=== PATIENT | male | born 1940 | race Caucasian/White ===

== ENCOUNTER → 2018-04-06 08:56 | Outpatient (CLI) | payer MEDICARE, OTHER, SELFPAY ==
[2018-03-31 15:32] VITALS: BMI 23.4
[2018-04-06 09:56] LABS: CREATININE FINGERSTICK 0.8 mg/dL (0.70-1.30); EGFR FINGERSTICK > 60.0000 mL/min (>60)
--- NOTE | 2018-04-06 09:56 | PET_ITS ---
EXAMINATION: FDG PET/CT INDICATIONS: A 77-year-old male with history of carcinoma of the lung presenting for restaging examination. COMPARISON EXAMINATION: None available INDEX LESION SIZE SUV INTERPRETATION Precarinal mediastinum 29.6 x 36.7-mm (frame 236) 7.7 Fulfills quantitative criteria for viable neoplasm Bilateral thoracic perihilum 18.9-mm (largest) (frame 207) 3.2 (max) Fulfills borderline quantitative criteria for viable neoplasm NON-INDEX LESION SIZE SUV INTERPRETATION Left adrenal gland 1.4 Quantitative criteria for viable neoplasm are not fulfilled Right upper hemithorax pulmonary parenchyma, linear 0.9 Quantitative criteria for viable neoplasm are not fulfilled TECHNIQUE: Following the intravenous administration of 13.93 mCi of F-18 deoxyglucose via the right antecubital fossa, multiplanar image acquisitions of the neck, chest, abdomen and pelvis to level of mid thigh, obtained at one hour post radiopharmaceutical administration contemporaneously interpreted with the current CT of the neck, chest, abdomen and pelvis to level of mid thigh, dated 04/06/18 via coregistration reveal: SERUM GLUCOSE LEVEL: 110 mg/dl. HEIGHT: 72 inches. WEIGHT: 175 lbs. FINDINGS: 1. Increased glucose metabolism is currently defined in the precarinal mediastinum generating a corrected maximum calculated standard uptake value of 7.7. The maximal axial diameter of the corresponding hypermetabolic soft tissue density on review of CT of the thorax dated 04/06/18 is 29.6-mm (transverse) x 36.7-mm (AP). 2. Enhanced radiopharmaceutical concentration is observed in the bilateral thoracic perihilum generating a corrected maximum calculated standard uptake value of 3.2. The maximal axial diameter of the metabolic abnormality is 18.9-mm (AP). 3. Mild FDG uptake is observed in the left adrenal gland. The corrected maximum calculated standard uptake value is noted to be 1.4. Quantitative criteria for viable neoplasm are not fulfilled. 4. Normal physiologic distribution of the radiopharmaceutical is apparent in the hepatic (3.0) and splenic parenchyma, both renal units, bladder and visualized intestinal tract. Diffuse radiopharmaceutical concentration is noted in all four quadrants of the abdomen and pelvis. The visualized portion of the cerebral cortex demonstrate symmetric and preserved glucose metabolism. Prominent glucose metabolism is defined in the descending thoracic, as well as abdominal aorta. Symmetric glucose concentration is noted in the distribution of the laryngeal structures to include the true-false vocal cords extending posteriorly to the cricopharyngeus musculature, cricoids cartilage consistent with physiologic distribution of radiopharmaceutical. A linear increase in glucose concentration oriented in the horizontal plane is noted in the right upper hemithorax pulmonary parenchyma generating a corrected maximum calculated standard uptake value of 0.9. Pertinent CT findings are as follows: CHEST: There is evidence of previous median sternotomy. Ventricular pacemaker placement is defined. There is atherosclerotic calcification defined in the thoracic aorta without evidence of dilatation-aneurysm formation. Coronary arterial calcification is observed. Calcified mediastinal and right thoracic perihilar soft tissue demonstrates no evidence of increased glucose metabolism. There are no parenchymal densities-nodules defined in the right-left hemithorax manifesting quantitatively significant increased glucose concentration. Emphysematous changes are noted in the bilateral upper lung zones. A subcentimeter density noted in the right basilar hemithorax pulmonary parenchyma is non-glucose avid. ABDOMEN AND PELVIS: Cholelithiasis is demonstrated. There is atherosclerotic calcification defined in the abdominal aorta without evidence of dilatation-aneurysm formation. Intravenous contrast is noted in the bilateral ureter and urinary bladder. This is distribution of presumably oral contrast material within the intestinal tract. SKELETAL: Degenerative changes are noted in the cervical, thoracic and lumbar spine. PET/PET/CT Tumor Base -Thigh Subs IMPRESSION: 1. ABNORMAL EXAMINATION INDICATIVE OF MALIGNANT VIABLE NEOPLASM. 2. Increased radiotracer concentration noted in the precarinal mediastinum fulfills quantitative criteria for viable neoplasm. The bilateral thoracic perihilar increase in glucose concentration fulfills borderline quantitative criteria for malignant transformation. (Saeid et al, Journal of Clinical Oncology 16:2142, 1998). 3. Facilitated glucose metabolism manifest in the left adrenal gland does not fulfill quantitative criteria for viable neoplasm. (Abiel and Sherry, Journal of Nuclear Medicine 42:151 P2002 [place], Journal of Nuclear Medicine 45:1340, 2004). 4. The linear increase in glucose concentration noted in the right upper hemithorax pulmonary parenchyma, right upper lobe, does not fulfill quantitative criteria for viable neoplasm. 5. Prominent fluorine labeled glucose uptake observed in the descending thoracic, as well as abdominal aorta is commensurate with activated leukocytes associated with atherosclerotic plaque formation. (Tom, Clinical Nuclear Medicine 29:93, 2004). Electronic Signature Yosef Bond D.O. Electronically Signed: Yosef Bond DO at 23:16 EDT Tel , Service support ,
== END ==
PROVIDERS: Visit Provider Student in an Organized Health Care Education/Training Program
DX: C34.11 Malignant neoplasm of upper lobe, right bronchus or lung (principal)
CPT/HCPCS: 77290; 78815; A9552; Q9967

== ENCOUNTER 2018-04-09 10:44 | Day surgery (SDC) | payer MEDICARE, OTHER, SELFPAY ==
[2018-03-31 15:32] VITALS: BMI 23.4
[2018-04-09] VITALS (9 sets, daily range): BP systolic 78–142; BP diastolic 55–80; PULSE 66–78; RESP 16–18; TEMP 36.3–36.8; O2SAT 92–99; BMI 22.8
[2018-04-09] MEDS: Cefazolin 2 GM in 0.9% Normal Saline 100 ML IV (13:24)
[2018-04-09] MEDS: Bupiv/Epi 0.5% Mpf 30 ML Vial (13:50)
--- NOTE | 2018-04-09 14:15 | RAD_ITS ---
STUDY: X-RAY CHEST REASON FOR EXAM: Male, 77 years old. Post line placement TECHNIQUE: Single AP portable view of the chest. COMPARISON: PET scan 04/06/2018. FINDINGS: There is a left Mediport catheter that terminates in the mid SVC. No pneumothorax. There is hyperexpansion of the lungs. There is linear scarring or platelike atelectasis across the right upper lobe. No infiltrates or effusions. Sternal cerclage wires and vascular clips are present from a prior sternotomy and coronary artery bypass graft procedure (CABG). Normal heart size. Pacemaker is seen with leads terminating in the right atrium, coronary sinus, and right ventricle. Normal mediastinum and nazia. Normal visualized pulmonary arteries. Normal visualized aortic arch and descending thoracic aorta. Normal visualized thoracic spine. Normal visualized ribs, clavicles, and shoulders. There is no demonstrated abnormality of the visualized soft tissue structures of the upper abdomen. RAD/CXR for Line Placement IMPRESSION: Left Mediport catheter terminates in the mid SVC. COPD. Linear density across the right upper lobe most likely scarring or subsegmental atelectasis. No definite acute chest disease. Electronically Signed: Petros Alarcon MD at 15:00 EDT , Service support ,
--- NOTE | 2018-04-09 14:35 | DCINST_ITS ---
Discharge Diet: No Restrictions - Pain medication may cause nausea. You should typically eat light foods as you take your pain medication. Discharge Activity: Return to Normal Activity, May Shower - with your bandage in place in 1-2 days after surgery. DO NOT SHOWER WHEN YOUR PORT IS ACCESSED. Call your doctor if your incision/area has: Continuous Slow Oozing, Sudden Increased Bleeding, Increased Pain/ Swelling, Increased Redness Call your doctor if you observe: Fever of 101 or Higher Remove Dressing in (days):: 3 - When you remove the bandage, leave the steri- strips intact until they fall off. Allergies/Adverse Reactions: Allergies levofloxacin [From Levaquin] Allergy (Verified 04/07/18 08:41) Unknown Medications to take at Discharge Acetaminophen [Pain Relief] 325 mg PO Q4H PRN 03/19/18 Albuterol IH (ProAir) [Proair Hfa] 1 puff INHALATION Q4H PRN 03/19/18 Aspirin [Aspirin, Baby] 81 mg PO DAILY@0800 03/19/18 Carvedilol 12.5 mg PO BID 03/19/18 Hydrochlorothiazide [Hctz] 12.5 mg PO DAILY 03/19/18 Lisinopril [Zestril] 5 mg PO QHS 03/19/18 Omeprazole [Prilosec] 20 mg PO DAILY 03/19/18 Pravastatin [Pravachol] 40 mg PO DAILY 03/19/18 Psyllium [Metamucil] 1 packet PO PRN PRN 03/19/18 Tiotropium [place] [Spiriva 18 MCG] 1 puff INHALATION DAILY 03/19/18 Cholecalciferol (Vitamin D3) 1,000 iu PO DAILY 03/30/18 Lidocaine/Prilocaine [Lidocaine-Prilocaine Cream] 30 gm TP DAILY PRN PRN #1 cream..g. 04/02/18 Primary Care Physician: Aleksandr Hernandez [Primary Care Provider] - Test Results: Please Follow Up With: Emil Perry MD When: Please call to schedule 2 week follow up appointment. [phone]
--- NOTE | 2018-04-09 14:36 | OP.PCM_ITS ---
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 Ultrasound was used to evaluate both IJ is in the right IJ was selected. Next, using a needle, the right IJ was accessed and a guidewire was passed on into the superior vena cava under fluoroscopy guidance. A small incision was made over the puncture site and the dilator introducer was placed over the guidewire. Next this was capped and the pocket was made for the port. 1% lidocaine with epinephrine was injected in the proposed port site. An incision was made with scalpel. Electrocautery was used to make a pocket under the skin and subcutaneous tissue. Hemostasis was obtained. Next, the catheter was tunneled up to the neck incision site and placed through the introducer. The peel-away introducer was removed and the position of the catheter was confirmed on fluoroscopy. Next, the catheter was trimmed and attached to the port with the locking device. Interrupted 2-0 PDS were used to anchor the port to the chest wall and then the port was placed inside the pocket. The pocket was then flushed with saline and the port irrigated with saline. There was good blood return and the port flushed easily. Next, heparin was injected into the port. The skin was closed with subcutaneous interrupted 3-0 Vicryl sutures and interrupted skin 3-0 nylon sutures. A single 3-0 Vicryl sutures placed under the skin at the neck incision site. Steri-Strips were placed as well as op sites. Patient tolerated procedure well, was taken to PACU in stable condition. Chest x-ray will be obtained. Grafts/Implants Used: 8 [place] [employer] - Admit VTE Documentation VTE Mechan Device Prophylaxis: SCD's
== END 2018-04-09 15:22 | disposition home or self-care (01) ==
LOC: SDC 10:45 → AC 10:46
PROVIDERS: Visit Provider Surgery
PROC: (CPT 36571; principal; 2018-04-09 12:45)
DX: C34.11 Malignant neoplasm of upper lobe, right bronchus or lung (principal); C77.1 Secondary and unspecified malignant neoplasm of intrathoracic lymph nodes; I11.0 Hypertensive heart disease with heart failure; I50.9 Heart failure, unspecified; I25.10 Atherosclerotic heart disease of native coronary artery without angina pectoris; N40.0 Benign prostatic hyperplasia without lower urinary tract symptoms; J44.9 Chronic obstructive pulmonary disease, unspecified; K21.9 Gastro-esophageal reflux disease without esophagitis; I25.2 Old myocardial infarction; E78.5 Hyperlipidemia, unspecified; D69.3 Immune thrombocytopenic purpura; M19.90 Unspecified osteoarthritis, unspecified site; C61 Malignant neoplasm of prostate; Z95.1 Presence of aortocoronary bypass graft; Z95.810 Presence of automatic (implantable) cardiac defibrillator; Z87.891 Personal history of nicotine dependence; Z45.2 Encounter for adjustment and management of vascular access device; Z79.51 Long term (current) use of inhaled steroids; Z79.82 Long term (current) use of aspirin; Z79.899 Other long term (current) drug therapy
CPT/HCPCS: 36571; 71045; 77001; J7120; C1788

== ENCOUNTER → 2018-06-29 10:33 | Outpatient (CLI) | payer MEDICARE, OTHER, SELFPAY ==
[2018-03-31 15:32] VITALS: BMI 23.4
--- NOTE | 2018-06-29 10:35 | RAD_ITS ---
STUDY: X-RAY CHEST REASON FOR EXAM: Male, 78 years old. 3 month history of cough. Recurring lung cancer. TECHNIQUE: PA and lateral views of the chest. COMPARISON: Comparison is made with prior study dated April 09, 2018. FINDINGS: A right-sided portacatheter is seen. The tip is at the junction of the superior vena cava and right atrium. Hyperinflation. Increased linear markings in the right upper lobe. This most likely represents scarring. This has improved as compared to prior study. There is elevation of the right hemidiaphragm. Sternal cerclage wires and vascular clips are present from a prior sternotomy and coronary artery bypass graft procedure (CABG). A left-sided dual-chamber pacemaker is seen. There are calcified hilar lymph nodes. Normal visualized pulmonary arteries. Normal visualized aortic arch and descending thoracic aorta. There is demineralization of the osseous structures. Normal visualized ribs, clavicles, and shoulders. There is no demonstrated abnormality of the visualized soft tissue structures of the upper abdomen. RAD/Chest PA and Lateral IMPRESSION: Hyperinflation. Increased markings in the right upper lobe suggestive of scarring. This has improved as compared to prior study. Electronically Signed: Dangelo Blevins MD at 11:09 EDT Tel [phone], Service support ,
== END ==
PROVIDERS: Visit Provider Internal Medicine Hematology & Oncology
DX: J44.9 Chronic obstructive pulmonary disease, unspecified (principal)
CPT/HCPCS: 71046

== ENCOUNTER → 2018-09-07 13:22 | Outpatient (CLI) | payer MEDICARE, OTHER, SELFPAY ==
[2018-03-31 15:32] VITALS: BMI 23.4
[2018-08-24 10:29] VITALS: BMI 21.9
--- NOTE | 2018-09-07 13:26 | CT_ITS ---
STUDY: CT CHEST WITH CONTRAST REASON FOR EXAM: Male, 78 years old. Lung cancer restaging. Chronic cough. RADIATION DOSAGE (If Supplied By Facility): CTDIvol = ( 13.66 ) mGy, DLP = ( 799.81 ) mGycm TECHNIQUE: Transaxial imaging was performed following intravenous administration of 100mL ml of Isovue 300 contrast material. Individualized dose optimization techniques were used for this CT. COMPARISON: None. Previous PET scan from April of this year was not provided for comparison. FINDINGS: There is hyperexpansion of the lungs, and evidence for severe diffuse fibrotic COPD. A small focal area of probable fibrosis is seen along the posterior aspect of the right apex, 1.3 cm size, axial image 31 and coronal image 194. Discoid scarring is seen across the lateral aspect of the right apex. Moderately extensive probable fibrotic changes seen throughout the right perihilar region. No definite associated mass, but active neoplasm is definitely not excluded. Platelike density across the lower posterior left lower lobe is most likely scarring. No definite acute infiltrates. No effusions. Evaluation of mediastinum shows the soft tissue mass approximately 3 cm greatest dimension along the left side of the upper esophagus, axial image 33 and coronal image 134, which could be neoplastic. Cannot exclude neoplasm versus fibrotic changes around the right hilum. Sternal cerclage wires and vascular clips are present from a prior sternotomy and coronary artery bypass graft procedure (CABG). Pacemaker is seen with leads terminating in the right atrium and right ventricle. Normal enhanced pulmonary arteries. Normal aorta arch and descending thoracic aorta. There are multi-level degenerative changes of the thoracic spine. There is no demonstrated abnormality of the visualized upper abdomen. CT/Chest WITH Contrast IMPRESSION: Severe fibrotic COPD. Probable areas of bilateral pulmonary scarring. Cannot exclude active neoplasm especially around the right hilum. Probable adenopathy in the left upper mediastinum. Note that no prior studies were provided for comparison, which significantly degrades cancer follow-up. Electronically Signed: Petros Alarcon MD at 17:15 EST , Service support ,
--- NOTE | 2018-09-07 13:26 | CT_ITS ---
STUDY: CT ABDOMEN WITH CONTRAST REASON FOR EXAM: Male, 78 years old. Lung cancer restaging. Cough. RADIATION DOSAGE (If Supplied By Facility): CTDIvol = ( 13.66 ) mGy, DLP = ( 788.81 ) mGycm TECHNIQUE: Transaxial images were obtained post I.V. administration of 100mL ml of Isovue 300 contrast, and without oral contrast. Sagittal and coronal images were reconstructed. Individualized dose optimization techniques were used for this CT. COMPARISON: None. FINDINGS: See separate report for CT of the chest. Normal liver. There are multiple gallstones. Normal spleen. Normal pancreas. Normal bilateral adrenal glands. There are no acute abnormalities of the kidneys. There is a 4 mm nonobstructing stone of the upper pole of the right kidney. There is a 2 mm nonobstructing stone in the lower pole of the left kidney. There are bilateral small cortical and parapelvic cysts. Normal visualized stomach. Normal small intestine. Moderate fecal retention in the visualized colon. There is diffuse atherosclerotic calcification of the abdominal aorta, without a demonstrated aneurysm. Normal inferior vena cava. Normal retroperitoneum. Normal abdominal wall. There are diffuse degenerative changes of the visualized lumbar spine. CT/Abdomen WITH IV Contrast IMPRESSION: No definite acute abnormalities are seen. Bilateral nonobstructing renal stones. Fecal retention in the colon. Electronically Signed: Petros Alarcon MD at 22:31 EST , Service support ,
== END ==
PROVIDERS: Referring Provider Internal Medicine Hematology & Oncology; Visit Provider Internal Medicine Hematology & Oncology
DX: C34.11 Malignant neoplasm of upper lobe, right bronchus or lung (principal)
CPT/HCPCS: 71260; 74160; Q9967

== ENCOUNTER → 2019-04-12 | Outpatient (CLI) | payer MEDICARE, OTHER, SELFPAY ==
[2018-03-31 15:32] VITALS: BMI 23.4
[2018-12-10 13:36] VITALS: BMI 24.5
--- NOTE | 2019-04-12 13:19 | CT_ITS ---
STUDY: CT CHEST WITH CONTRAST REASON FOR EXAM: Male, 78 years old. Lung cancer follow-up RADIATION DOSAGE (If Supplied By Facility): CTDIvol = ( 18.86 ) mGy, DLP = ( 2754.01 ) mGycm TECHNIQUE: Transaxial imaging was performed following intravenous administration of 100mL IV Isovue 300. Multiplanar coronal and sagittal images were reformatted. Individualized dose optimization techniques were used for this CT. COMPARISON: CT chest December 07, 2018 from a PET scan FINDINGS: There is a pattern of hyperinflation of the lungs increased AP diameter and emphysematous change throughout. Within the left lung base there is new focal consolidation image #109. There is focal peripheral patchy nodular density at the distal ends of the adjacent bronchi suggesting possible mucous plugging and inflammatory change. There is persistent scar like density or thickening in the right apex. There is persistent persistent focal scarlike density within the mid aspect of the right lung. There is no demonstrated pleural abnormality. There are coronary calcifications. The heart is borderline enlarged. Sternotomy wires are seen midline. There are multiple calcified lymph nodes in the right-sided mediastinum.. There is mild thickening of the right hilum similar to prior study. Normal enhanced pulmonary arteries. Aorta is partially calcified mildly tortuous. There are multi-level degenerative changes of the thoracic spine. Sternotomy wires are seen midline. The visualized multiple gallstones. There is a minimal hiatal hernia. CT/Chest WITH Contrast IMPRESSION: Left interval development of left lower lobe consolidation and patchy nodular densities that is suspicious for pneumonia. Could consider possible aspiration. The differential in this setting could consider neoplasm however given the appearance infection is thought to be more likely. Pulmonary edema chronic obstructive pulmonary disease stable scarring right midlung zone and right apex. Status post sternotomy. Pacemaker. Coronary artery disease. Cholelithiasis. The remainder of the CT scan of the abdomen and pelvis were discussed in the dedicated study performed the same day. N.B. : The above information has been verbally conveyed by Rosy Byrne MD to Dr. Mono MD, on 04/12/2019 16:05:30 (ET). Electronically Signed: Rosy Byrne MD at 15:59 EDT Tel , Service support ,
--- NOTE | 2019-04-12 13:20 | CT_ITS ---
STUDY: CT ABDOMEN AND PELVIS WITH CONTRAST REASON FOR EXAM: Male, 78 years old. Follow-up lung cancer RADIATION DOSAGE (If Supplied By Facility): CTDIvol = ( 18.86 ) mGy, DLP = ( 2754.01 ) mGycm TECHNIQUE: Transaxial images were obtained from the dome of the diaphragm to the symphysis pubis without oral contrast. 100mL IV Isovue 300 was administered. Sagittal and coronal images were reconstructed. Individualized dose optimization techniques were used for this CT. COMPARISON: PET scan CT December 07, 2018, September 07, 2018 CT scan FINDINGS: There is a focus of consolidation in the left lung base new since December 07, 2018 recurrent since September 07, 2018 that is been described in the CT scan performed the same day. Coronary calcifications pacemaker demonstrated. Normal liver. There are multiple small gallstones. There is mild splenomegaly. Normal pancreas. Normal bilateral adrenal glands. The minimal stable right side renal cyst measuring 7 mm exophytic location there is a punctate calcification is no evidence for hydronephrosis. There is a stable right renal cyst measuring 6.2 mm. There is a stable punctate stone left kidney without hydronephrosis. Normal visualized stomach. Normal small intestine. There is mild to moderate stool in the colon. The appendix is visualized and appears normal. The aorta is partially calcified. There is dense calcification at the takeoff of the bilateral common iliac arteries which may be hemodynamically significant especially on the right side. There is dense calcification of the takeoff of the bilateral external and internal iliac arteries. This is stable when compared to prior study September 07, 2018. Normal inferior vena cava. Normal retroperitoneum. The bladder is decompressed the wall is subsequently thickened. Normal visualized prostate gland. Normal abdominal wall. There are diffuse degenerative changes of the visualized lumbar spine. There is degenerative change in the lumbar spine. There is a broad disc bulge L4-L5 with mild to moderate neural foramina narrowing mild central stenosis facet arthropathy. At L5-S1 there is a broad disc osteophyte with mild to moderate neural foraminal narrowing or significant central stenosis. There is a stable 5 mm sclerotic density in the right ilium which may represent bone island there is a 2 mm density in the left ilium stable since prior study. This also may represent a bone island. CT/Abdomen/Pelvis W IV Cont ONLY IMPRESSION: No evidence of hepatic splenic adrenal or retrograde peritoneal lymphadenopathy. [id number] constipation Cholelithiasis. Stable kidneys. Advanced atherosclerotic disease of the aorta especially the common iliac arteries. Degenerative changes of the thoracolumbar spine no definitive evidence of new sclerotic lesions. No evidence of lytic lesions. There is a left lower lobe consolidation which is new since the recent prior study December 07, 2018 suggestive of probable pneumonia likely related to bronchiectasis. This is not seen on the more recent prior study December 07, 2018 but recurrent when compared to September 07, 2018. Electronically Signed: Rosy Byrne MD at 16:13 EDT Tel , Service support ,
[2019-04-12 14:32] LABS: Creatinine, Serum 1.18 mg/dL (0.70-1.30); EST Glomerular Filtration Rate 63 mL/min (>60); Est Glom Filt Rate - Afr Amer 76 mL/min (>60)
== END | disposition home or self-care (01) ==
LOC: CT 13:16
PROVIDERS: Referring Provider Internal Medicine Hematology & Oncology; Visit Provider Internal Medicine Hematology & Oncology
DX: C34.11 Malignant neoplasm of upper lobe, right bronchus or lung (principal)
CPT/HCPCS: 71260; 74177; 82565; Q9967

== ENCOUNTER → 2019-07-15 12:49 | Outpatient (CLI) | payer MEDICARE, OTHER, SELFPAY ==
[2018-03-31 15:32] VITALS: BMI 23.4
[2019-04-19 13:11] VITALS: BMI 25.6
--- NOTE | 2019-07-15 12:50 | CT_ITS ---
STUDY: CT ABDOMEN WITH CONTRAST REASON FOR EXAM: Male, 79 years old. Lung cancer RADIATION DOSAGE (If Supplied By Facility): CTDIvol = ( 17.05 ) mGy, DLP = ( 1127.34 ) mGycm TECHNIQUE: Transaxial images were obtained post I.V. administration of IV Isovue 300 100, and oral contrast. Sagittal and coronal images were reconstructed. Individualized dose optimization techniques were used for this CT. COMPARISON: None. FINDINGS: Emphysematous change at the lung bases. Spiculated nodule at the posterior lateral left lung base measuring 1.8 cm. Nodular airspace infiltration at the posterior left lung base. Heart is normal in size. Pacer wires are in place. Pericardium is normal. Normal liver. Calcified stones are seen in the nondistended, nonthickened gallbladder. No biliary duct dilatation. Normal spleen. Normal pancreas. Normal bilateral adrenal glands. Small hypoattenuated lesions within both kidneys measuring near water density. 3 mm calculus in the mid right renal pelvis. No hydronephrosis. Normal visualized ureters. Normal visualized stomach. Normal visualized small bowel loops.. Normal visualized colonic segments. Mild atheromatous and atherosclerotic plaque within the visualized abdominal aorta. Normal inferior vena cava. Normal retroperitoneum. Normal abdominal wall. Normal osseous structures. CT/Abdomen WITH IV Contrast IMPRESSION: 1. No acute intra-abdominal abnormality. 2. Cholelithiasis with no evidence of acute cholecystitis. 3. Simple appearing bilateral renal cysts. 4. Emphysematous change at the lung bases with 1.8 cm spiculated nodule at the left posterolateral lung base and nodular airspace infiltrates at the left posterior lung base. Electronically Signed: Raul Figueroa MD at 2:16 EDT Tel , Service support ,
--- NOTE | 2019-07-15 12:50 | CT_ITS ---
STUDY: CT chest and abdomen with contrast REASON FOR EXAM: Male, 79 years old. Lung cancer RADIATION DOSAGE (If Supplied By Facility): DLP = ( 1127.34 ) mGycm TECHNIQUE: Transaxial imaging was performed following intravenous administration of 100 ml of 100mL Isovue-300 contrast material. Coronal and sagittal reformatted images were created. Individualized dose optimization techniques were used for this CT. COMPARISON: CT chest abdomen and pelvis April 12, 2019 FINDINGS: Severe emphysema is again seen with areas of scarring. Again seen are left lower lobe infiltrates, slightly increased with tree-in-bud nodular opacities present. Stable bilateral bronchial wall thickening is present. The heart and pericardium are within normal limits. Coronary artery calcifications are present. There is no thoracic lymphadenopathy. There is no evidence of thoracic aortic aneurysm. The liver is normal in appearance. The gallbladder contains gallstones. The pancreas, spleen, and adrenal glands are normal in appearance. There is a right renal upper pole nonobstructing 3 mm stone. There is a left renal lower pole nonobstructing 1 mm stone. No hydronephrosis is present. The visualized bowel is normal in appearance. There is no free fluid or free air present. There is a lymphadenopathy. No aggressive appearing osseous lesions are present. CT/Chest WITH Contrast IMPRESSION: Severe emphysema with areas of scarring. Redemonstrated left lower lung zone infiltrates with tree-in-bud nodular opacities. Likely infectious with neoplasm possible but less likely. Stable bilateral bronchial wall thickening. Gallstones. Bilateral nonobstructing renal stones. Electronically Signed: Jose Belle, at 16:47 EDT Tel , Service support ,
[2019-07-15 13:46] LABS: CREATININE FINGERSTICK 1.2 mg/dL (0.70-1.30)
== END ==
PROVIDERS: Referring Provider Internal Medicine Hematology & Oncology; Visit Provider Internal Medicine Hematology & Oncology
DX: C34.90 Malignant neoplasm of unspecified part of unspecified bronchus or lung (principal)
CPT/HCPCS: 71260; 74160; Q9967

== ENCOUNTER → 2019-09-22 12:06 | Outpatient (CLI) | payer MEDICARE, OTHER, SELFPAY ==
[2018-03-31 15:32] VITALS: BMI 23.4
[2019-09-13 11:54] VITALS: BMI 25.6
[2019-09-22 12:50] VITALS: PULSE 84; PULSE 88; PULSE 89; PULSE 90; PULSE 91; PULSE 92; O2SAT 88; O2SAT 90; O2SAT 91; O2SAT 92; O2SAT 96; O2SAT 97; O2SAT 98
--- NOTE | 2019-09-22 12:53 | CPS ---
Patient came in on 4 lpm pulse dose, states that he wears 2-4 lpm at home. Patient states that he does not walk a lot and that he does have a pulse ox at home and uses it. Started walk on room air since SpO2 was 92-93%, 10+ minutes off of O2. By a 1 minute 18 seconds in patient dropped to 88% and stated he was short of breath. Placed patient on his own conserving device at 3 lpm pulse dose, recovered to 96%. Patient stopped walking by the 3rd minute and stated he was extrememly short of breath. Patient sat until the 5th minute but then walked another 60 feet in the last minute.
--- NOTE | 2019-09-23 07:55 | PCM.PSN.6M ---
PSN 6 Minute Walk Test - 6 Minute Walk Test 6 Minute Walk Test: 6 Minute Walk Test PSN:6-Minute Walk Test Start: 09/22/19 12:50 Freq: Status: Active Protocol: RESP.6MINW Document 09/22/19 12:50 SMITACHANELNAOMI (Rec: 09/22/19 12:56 KARYNON [id number]) 6 Minute Walk Test Date Performed 09/22/19 Time Performed 12:30 Height 6 ft Weight: 185 lb Weight in Pounds 185.[address]: Darius Tate Assistive device used: None Pre-test Oxygen Delivery Method Room Air Pulse Ox (%) 92 Pulse Rate (60-100 beats/min) 84 Dyspnea Daisy Scale (0-10) 0 Exertion Daisy Scale (6-20) 6 1st minute Oxygen Delivery Method Room Air Pulse Ox (%) 88 Pulse Rate (60-100 beats/min) 89 Reported Symptoms Increased Work of Breathing 2nd minute Oxygen Flow Rate (L/min) (L/min) 3 Oxygen Delivery Method Nasal Cannula Pulse Ox (%) 90 Pulse Rate (60-100 beats/min) 92 Reported Symptoms Increased Work of Breathing 3rd minute Oxygen Flow Rate (L/min) (L/min) 3 Oxygen Delivery Method Nasal Cannula Pulse Ox (%) 92 Pulse Rate (60-100 beats/min) 92 Number of Rests Taken 1 4th minute Oxygen Flow Rate (L/min) (L/min) 3 Oxygen Delivery Method Nasal Cannula Pulse Ox (%) 96 Pulse Rate (60-100 beats/min) 92 Number of Rests Taken 1 Reported Symptoms Increased Work of Breathing 5th minute Oxygen Flow Rate (L/min) (L/min) 3 Oxygen Delivery Method Nasal Cannula Pulse Ox (%) 98 Pulse Rate (60-100 beats/min) 91 Number of Rests Taken 1 Reported Symptoms Increased Work of Breathing 6th minute Oxygen Flow Rate (L/min) (L/min) 3 Oxygen Delivery Method Nasal Cannula Pulse Ox (%) 91 Pulse Rate (60-100 beats/min) 90 Reported Symptoms Increased Work of Breathing Post-test Oxygen Flow Rate (L/min) (L/min) 3 Oxygen Delivery Method Nasal Cannula Pulse Ox (%) 97 Pulse Rate (60-100 beats/min) 88 Full Laps Walked 5 Partial Lap, Number of Tiles Walked 0 Total Distance Walked (ft) 295 09/22/19 12:53 Cardiopulmonary Services by Margie Matias Patient came in on 4 lpm pulse dose, states that he wears 2-4 lpm at home. Patient states that he does not walk a lot and that he does have a pulse ox at home and uses it. Started walk on room air since SpO2 was 92-93%, 10+ minutes off of O2. By a 1 minute 18 seconds in patient dropped to 88% and stated he was short of breath. Placed patient on his own conserving device at 3 lpm pulse dose, recovered to 96%. Patient stopped walking by the 3rd minute and stated he was extrememly short of breath. Patient sat until the 5th minute but then walked another 60 feet in the last minute. Initialized on 09/22/19 12:53 - END OF NOTE - Interpretation Interpretation: The patient ambulated 295 feet over the course of 6 minutes beginning on room air with breaks taken during testing. Pretesting oxygen saturation was noted to be 92% on room air. With ambulation, the macrina oxygen saturation was 88% at minute 1 of testing. 3 L/min of pulse dose supplemental oxygen was applied and the patient was able to complete the remainder of the test while maintaining appropriate oxygen saturations. However, the patient sat for approximately 2 minutes during testing which may limit the sensitivity for detecting further oxygen desaturations. - Recommendations Recommendations: 3 L/min of pulse dose supplemental oxygen should be utilized with exertion.
== END ==
PROVIDERS: Referring Provider Internal Medicine Critical Care Medicine; Visit Provider Internal Medicine Critical Care Medicine
DX: J44.9 Chronic obstructive pulmonary disease, unspecified (principal); C34.11 Malignant neoplasm of upper lobe, right bronchus or lung
CPT/HCPCS: 94618

== ENCOUNTER 2019-12-15 14:24 | Inpatient (IN) | payer MEDICARE, OTHER, SELFPAY ==
[2018-03-31 15:32] VITALS: BMI 23.4
[2019-12-15] VITALS (18 sets, daily range): BP systolic 82–111; BP diastolic 39–75; PULSE 74–94; RESP 16–97; TEMP 36.3–36.8; O2SAT 25–100; BMI 24.9; BMI 24.2
--- NOTE | 2019-12-15 15:12 | EKG12_ITS ---
Test Reason : HYPOTENSION Blood Pressure : / mmHG Vent. Rate : 075 BPM Atrial Rate : 075 BPM P-R Int : 128 ms QRS Dur : 154 ms QT Int : 446 ms P-R-T Axes : 000 241 005 degrees QTc Int : 498 ms Atrial-sensed ventricular-paced rhythm Biventricular pacemaker detected Abnormal ECG Confirmed by QUETA FANG, MORAIMA ([id number]), non linear editor BLAKE ALBRECHT ([id number]) on 12/17/2019 1:01:42 PM Referred By: CHIDI Confirmed By:MCKENZIE BIRCH MD
--- NOTE | 2019-12-15 15:15 | ED.DCSUM_ITS ---
- ER Visit Summary Date of Service: 12/15/19 Chief Complaint: Lightheaded and hypotensive History of Present Illness: The patient is a 79 M who lives in [place]. His sales operations consultant is Dr. Tate. He sees Dr. Villareal and has a history of lung cancer in 2018. He is no longer getting treatment for this. His primary care physician is Dr. Hernandez and his trust manager assistant is Dr. Schreiber. Patient and reports that his blood pressure typically is 10 3-1 05 systolic. It is been in the 70 systolic intermittently for the past 2 months. States that today he is very lightheaded. This gets worse when he stands. Is not passed out. Patient reports that he has had increased swelling in his legs and his arm first for the past 2 months. 2 weeks ago they doubled his Lasix from 20 mg a day to 40 mg a day for 4 days. Patient reports that he does not really see much of a difference. He does not do daily weights. Patient reports that he is on 12-1/2 mg of carvedilol twice a day and 5 mg of lisinopril nightly. There is been no change in these medications. On review of systems patient reports he has a chronic cough that is unchanged. It is occasionally productive of pineda sputum without blood. He denies any fever, chills, or chest pain. Patient does report that he has shortness of breath that is chronic as well. It is severe at worst and mild currently. When asked if this is worse than usual he says yes and no. States it is increased with exertion. There is no change with laying flat. He believes his last echocardiogram was approximately 2 years ago. Physical Examination: Vitals: Stable. Afebrile. General: Well-nourished and well-developed. Head: Normocephalic atraumatic. Neck: Supple, no lymphadenopathy. No JVD. Nontender. Cardiovascular: Regular rate and rhythm. No murmurs. Respiratory: No respiratory distress. Clear to auscultation bilaterally. Abdominal: Soft, nontender, nondistended, normal bowel sounds. No guarding, rebound, or peritoneal signs. Back: Nontender. Extremities: Nontender, no edema. Skin: Normal color, no rash. Neurologic: Alert and oriented ?3. Cranial nerves II through XII are intact. Normal strength and sensation. Psych: Normal affect. Test Results: EKG is AV paced at 75. CBC shows an H&H of 5.3 and 22.0, segmented neutrophils 89, etc. 6. Chem-7 showed a sodium of 146, chloride 117, and BUN of 25. LFTs show an ALT of 13 and AST of 13. Initial troponin 0 0.026. PT GLOBAL ACCOUNT EXECUTIVE is pending. Clinical Impression(s) from Imaging Studies Chest X-Ray 12/15/19 15:45 IMPRESSION: Stable examination with increased markings in the right upper lobe and right perihilar region suggestive of postradiation fibrosis. Electronically Signed: Dangelo Blevins, at 16:02 EDT , Service support , Emergency Department Course and Treatment: When the patient's hemoglobin return I went back in and talk with him again about the source of bleeding. He reports that he occasionally gets blood when he blows his nose. He denies any nosebleeds or trauma that have led to bleeding. His last colonoscopy was a long time ago. He denies any melena or hematochezia. Treatment Plan: Patient was typed and crossed for 2 units packed red blood cells. He was discussed with Dr. Archuleta. He will be admitted to the ICU due to hemoglobin of 5.3 and hypertension. Disposition: Admitted in serious condition. Impression: 1. Anasarca. 2. Hypotension. 3. Anemia. This note was generated with [employer] dictation software. It may contain incorrect words, spelling, and punctuation that were not noted in review of the chart prior to signing ED Disposition - Plan for ED Patient: Referrals: Aleksandr Hernandez [Primary Care Provider] -
[2019-12-15 15:43] LABS: Absolute Lymphocyte Count 0.38 X10^3/uL (0.83-4.51); Absolute Neutrophil Count 5.5 X10^3/uL (2.0-7.7); Eosinophil# 0.09 X10^3/uL; Eosinophils% 1.5 % (0-5); Lymphocyte # 0.38 X10^3/ul (4.0); Lymphocyte % 6.2 % (19-41); Mean Corp Hgb Conc 24.1 g/dL (32-36); Mean Corpuscular Hgb 16.4 pg (27.0-32.0); Mean Corpuscular Volume 68.1 fL (80-94); Monocyte# 0.19 X10^3/uL; Monocyte% 3.1 % (0-10); NRBC Flagged by Analyzer 0 % (0-5); Neutrophil # 5.48 X10^3/uL (2.7-7.7); Neutrophil % 88.7 % (47-70); POSITIVE COUNT YES; POSITIVE DIFFERENTIAL YES; POSITIVE MORPHOLOGY YES; Platelet Count 68 K/mm3 (150-450); Red Blood Count 3.23 M/mm3 (4.6-6.2); White Blood Count 6.2 K/mm3 (4.4-11.0)
--- NOTE | 2019-12-15 15:45 | RAD_ITS ---
STUDY: X-RAY CHEST REASON FOR EXAM: Male, [address] CARO OFFICE WITH INCREASED SWELLING, POSITIVE ORTHOSTATIC BP. WEARS 3L O2 AT HOME. COUGH AND EDEMA TECHNIQUE: AP and lateral views of the chest. COMPARISON: Comparison is made with prior examination dated June 29, 2018. FINDINGS: EKG electrodes are seen. Stable increased markings in the right upper lobe with the streakiness in the region of the right hilum suggestive of a prior radiation and post radiation fibrosis. Blunting of the right costophrenic angle. Sternal cerclage wires and vascular clips are present from a prior sternotomy and coronary artery bypass graft procedure (CABG). A left-sided dual-chamber pacemaker is seen. Normal visualized pulmonary arteries. Normal visualized aortic arch and descending thoracic aorta. Normal visualized thoracic spine. Normal visualized ribs, clavicles, and shoulders. There is no demonstrated abnormality of the visualized soft tissue structures of the upper abdomen. RAD/Chest PA and Lateral IMPRESSION: Stable examination with increased markings in the right upper lobe and right perihilar region suggestive of postradiation fibrosis. Electronically Signed: Dangelo Blevins, at 16:02 EDT , Service support ,
[2019-12-15 15:53] LABS: Differential Indicated SCAN CRITERIA MET; Hemoglobin 5.3 g/dL (13.0-16.5)
[2019-12-15 15:59] LABS: AST(SGOT) 13 U/L (15-37); Alanine Aminotransfer ALT/SGPT 13 U/L (16-61); Albumin, Serum 2.5 g/dL (3.2-5.0); Alkaline Phosphatase 48 U/L (45-117); Anion Gap 6 (5-15); BUN 25 mg/dL (7-18); BUN/Creat Ratio 28.5 RATIO (10-20); Calcium,Total 6.8 mg/dL (8.5-10.1); Chloride 117 mmol/L (98-107); Creatinine, Serum 0.88 mg/dL (0.70-1.30); EST Glomerular Filtration Rate 89 mL/min (>60); Est Glom Filt Rate - Afr Amer 107 mL/min (>60); Estimated Creatinine Clearance 73.48 ml/min; Globulin 2.5 g/dL (2.2-4.2); Glucose 82 mg/dL (74-106); Potassium 3.8 mmol/L (3.5-5.1); Sodium Level 146 mmol/L (136-145)
[2019-12-15 16:11] LABS: Differential Comment SCANNED
[2019-12-15 16:56] LABS: BNP,B-Type NATRIURETIC PEPTIDE 333.3 pg/mL (0-100)
--- NOTE | 2019-12-15 17:20 | PCM.HP.STD ---
Problem List (1) COPD (chronic obstructive pulmonary disease) Status: Acute (2) Prostate cancer Status: Acute (3) CHF (congestive heart failure) Status: Acute (4) CAD (coronary artery disease) Status: Acute (5) Hx of CABG Status: Resolved Comment: 2012 (6) Pacemaker Status: Acute (7) Enlarged lymph nodes Status: Acute (8) [facility] current use of anticoagulant Status: Acute (9) Presence of automatic implantable cardioverter-defibrillator Status: Acute (10) Malignant neoplasm of unspecified part of unspecified bronchus or lung Status: Acute (11) Immune thrombocytopenic purpura Status: Acute (12) Essential (primary) hypertension Status: Acute (13) Atherosclerotic heart disease of [place] coronary artery without angina pectoris Status: Acute (14) Hyperlipidemia Status: Acute (15) H/O hernia repair Status: Resolved Comment: 2007 (16) History of basal cell cancer Status: Acute Comment: NECK (17) History of GA (myocardial infarction) Status: Acute Comment: 10/2012 (18) Cataract Status: Acute Comment: BILATERAL REMOVAL 2005 (19) BPH loc w/o ur obs/LUTS Status: Acute (20) Esophageal reflux Status: Acute (21) Osteoarthrosis Status: Acute (22) History of cardiac cath Status: Resolved Comment: 2012 (23) port placement Status: Acute (24) s/p intrajugular port placement Status: Resolved (25) History of removal of Port-a-Cath Status: Resolved (26) CHF (congestive heart failure), NYHA class III Status: Chronic Qualifiers: (27) Chemotherapy management, encounter for Status: Resolved (28) Thrombocytopenia Status: Chronic (29) Primary malignant neoplasm of right upper lobe of lung Status: Chronic (30) Regional lymph node metastasis present Status: Chronic (31) COPD (chronic obstructive pulmonary disease) Status: Chronic Qualifiers: (32) CAD (coronary artery disease) Status: Chronic (33) Presence of combination internal cardiac defibrillator (ICD) and pacemaker Status: Chronic (34) Encounter for insertion of venous access port Status: Resolved History of Present Illness Date of Admission: 12/15/19 Chief Complaint: Dyspnea on exertion, intermittent hypotension for 2 weeks The patient is a 79 year old M with multiple comorbidities including coronary artery disease status post two-vessel CABG, COPD 2 L of oxygen was sent from pulmonary clinic by Dr. Tate for hypotension, dyspnea on exertion and diffuse edema. Patient has chronic shortness of breath secondary to COPD but for last 2 weeks is getting dyspnea on mild exertion and even at rest. Feels generalized weakness. He has diffuse edema including upper extremities and lower extremities and mild facial puffiness suggestive of anasarca. His hemoglobin was 11.5 in 2018 and now 5.3 in the ER. Patient follows color consultant at [facility] and had echo more than 2 years ago, result is unknown. No documentation available. In ED, he felt dizzy on standing up. Blood pressure 99/54, heart rate 69 on lying position dropped to 86/47, 60 on standing. Overall does not meet criteria for orthostatic hypotension but symptomatic of dizziness on standing. Patient has chronic cough with productive sputum and and expiratory wheezing which is his baseline. Denies any recent flulike illness including fever or worsening of cough. The chest x-ray independently reviewed and shows increased markings the right upper lobe which is stable suggestive of possible postradiation fibrosis 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) Medical History: Medical History (Last Reviewed 12/15/19 @ 13:40 by Paty Gallego) COPD (chronic obstructive pulmonary disease) (Acute) J44.9 Prostate cancer (Acute) C61 CHF (congestive heart failure) (Acute) I50.9 CAD (coronary artery disease) (Acute) I25.10 Pacemaker (Acute) Z95.0 Enlarged lymph nodes (Acute) 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 (Acute) Z79.01 Presence of automatic implantable cardioverter-defibrillator (Acute) Z95.810 Malignant neoplasm of unspecified part of unspecified bronchus or lung (Acute) 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) D69.3 Essential (primary) hypertension (Acute) I10 Atherosclerotic heart disease of [place] coronary artery without angina pectoris (Acute) I25.10 Hyperlipidemia (Acute) E78.5 History of basal cell cancer (Acute) Z85.828 NECK History of GA (myocardial infarction) (Acute) I25.2 10/2012 Cataract (Acute) H26.9 BILATERAL REMOVAL 2005 BPH loc w/o ur obs/LUTS (Acute) N40.0 Esophageal reflux (Acute) K21.9 Osteoarthrosis (Acute) M19.90 port placement (Acute) Allergies levofloxacin [From Levaquin] Allergy (Severe, Verified 12/15/19 14:28) Unknown shaking, kicking, out of it Home Medications: Ambulatory Orders Medication Instructions Recorded Albuterol IH (ProAir) [Proair Hfa] 1 puff INHALATION Q4H PRN 03/19/18 Aspirin [Aspirin, Baby] 81 mg PO DAILY@0800 03/19/18 Lisinopril [Zestril] 5 mg PO QHS 03/19/18 Omeprazole [Prilosec] 20 mg PO DAILY 03/19/18 Pravastatin [Pravachol] 40 mg PO DAILY 03/19/18 Psyllium [Metamucil] 1 packet PO DAILY PRN PRN 03/19/18 Fluticasone/Salmeterol [Advair 1 puff PO BID 08/24/18 100/50 Diskus] Furosemide [Lasix] 20 mg PO DAILY 08/24/18 Prednisone 10 mg PO DAILY 08/24/18 tiotropium bromide 18 mcg capsule 18 mcg INHALATION DAILY 09/13/19 with inhalation device Albuterol Aerosols [Ventolin 2.5 mg INHALATION Q6H PRN PRN 12/15/19 Aerosols] Benzonatate 200 mg PO TID PRN PRN 12/15/19 Carvedilol [Coreg] 12.5 mg PO BID 12/15/19 Cholecalciferol (VIT D3) [Vitamin 1,000 unit PO DAILY 12/15/19 D] Surgical History: Surgical History (Last Reviewed 12/15/19 @ 13:41 by Paty Gallego) Hx of CABG (Resolved) Z95.1 2012 H/O hernia repair (Resolved) Z98.890, Z87.19 2007 History of cardiac cath (Resolved) Z98.890 2012 s/p intrajugular port placement (Resolved) History of removal of Port-a-Cath (Resolved) Onset Date: ~09/2018 Z98.890 Smoking Status: Former smoker - *Family History Maternal Family History: Family History (Last Reviewed 12/15/19 @ 13:41 by Paty Gallego) Brother Prostate cancer Lung cancer Lung disease Heart disease Grandfather Prostate cancer Mother Diabetes Heart disease Father CVA (cerebral vascular accident) Review of Systems Constitutional: Reports: Weakness, Fatigue HEENT: Denies: Head Aches, Sinus Congestion, Sinus Drainage Cardiovascular: Denies: Chest Pain, Palpitations Respiratory: Reports: Cough, Shortness of breath at rest, Shortness of breath upon exertion, Sputum production, Wheezing Gastrointestinal: Denies: Abdominal Pain, Nausea, Vomiting Genitourinary: Denies: Dysuria, Frequency Musculoskeletal: Reports: Joint Pain. Denies: Joint Tenderness Skin: Denies: Rash, Wounds Neurological: Reports: Balance problems, Incoordination. Denies: Focal weakness, Numbness, Tingling Psychiatric: Denies: Anxiety, Depression, Homicidal Ideations, Suicidal Ideations Hematologic/ Lymphatic: Denies: Easy Bruising, Easy Bleeding VTE Information - Inpt Only VTE Present on Admission: No VTE Mechan Device Prophylaxis: SCD's VTE Pharm Prophylaxis ordered?: No Reason prophylaxis not ordered:: Medical Contraindication - Hemoglobin 5.3 - Physical Exam Vitals/I&O's: Vital Signs Temp Pulse Resp BP Pulse Ox 97.4 F L 74 25 H 99/54 L 99 12/15/19 14:25 12/15/19 16:02 12/15/19 16:02 12/15/19 16:02 12/15/19 16:02 Oxygen Flow Rate (L/min) 3 Oxygen Delivery Method Nasal Cannula Weight: 184 lb Body Mass Index (BMI) 24.9 Intake and Output for Last 24 Hours 12/13/19 12/14/19 12/15/19 23:59 23:59 23:59 Intake Total 233.33 / 233.33 Balance 233.33 / 233.33 General: Alert, Oriented x3, Cooperative HEENT: Atraumatic, PERRLA, EOMI, Normocephalic Neck: Supple, No JVD, Negative Carotid Bruits Lungs: Diminished - Air entry diffusely diminished, Short of Breath, Wheezes - End expiratory wheezing present Cardiovascular: Regular rate, Regular Rhythm, Normal S1, Normal S2, No murmurs, - - AICD on left subclavicular region. CABG scar. Ventricular paced rhythm Abdomen: Bowel Sounds Present, Soft, Non Tender, Non-Distended Extremities: Capillary Refill Less than 3 Seconds, Edema - Diffuse edema in all extremities Skin: No rashes, No breakdown Musculoskeletal: No Tenderness to Palpation of Joints or Extremities, Arthritic Changes, Muscle Wasting Neurological: Cranial nerves II-XII grossly intact, Deep Tendon Reflexes 2+/4 and Symmetrical, Neuro grossly intact Psych/Mental Status: Normal Affect, Appropriate Laboratory Results 12/15/19 15:35: WBC 6.2, RBC 3.23 L, Hgb 5.3 L*, Hct 22.0 L, MCV 68.1 L, MCH 16.4 L, MCHC 24.1 L, RDW Std Deviation 52.0 H, RDW Coeff of Khadijah 22.0 H, Plt Count 68 L, MPV TNP, Immature Gran % (Auto) 0.500, Neut % (Auto) 88.7 H, Lymph % (Auto) 6.2 L, Winkler % (Auto) 3.1, Eos % (Auto) 1.5, Baso % (Auto) 0.0, Absolute Neuts (auto) 5.5, Absolute Lymphs (auto) 0.38 L, Nucleated RBC % 0, Differential Comment SCANNED, Diff Path Review February12/15/19 15:35: Sodium 146 H, Potassium 3.8, Chloride 117 H, Carbon Dioxide 23.0, Anion Gap 6, BUN 25 H, Creatinine 0.88, Estim Creat Clear Calc 73.48, Est GFR (MDRD) Af Amer 107, Est GFR (MDRD) Non-Af 89, BUN/Creatinine Ratio 28.5 H, Glucose 82, Calcium 6.8 L, Total Bilirubin 0.70, AST 13 L, ALT 13 L, Alkaline Phosphatase 48, Troponin I 0.026, Total Protein 5.0 L, Albumin 2.5 L, Globulin 2.5, Albumin/Globulin Ratio 1.0 12/15/19 15:35: B-Natriuretic Peptide 333.3 H 12/15/19 16:30: Blood Type Pending, Antibody Screen Pending, Crossmatch See Detail Assessment/Plan All Active Problems (Last Reviewed 12/15/19 @ 13:40 by Paty Gallego) COPD (chronic obstructive pulmonary disease) (Acute) Prostate cancer (Acute) CHF (congestive heart failure) (Acute) CAD (coronary artery disease) (Acute) Hx of CABG (Resolved) Pacemaker (Acute) Enlarged lymph nodes (Acute) [facility] current use of anticoagulant (Acute) Presence of automatic implantable cardioverter-defibrillator (Acute) Malignant neoplasm of unspecified part of unspecified bronchus or lung (Acute) Immune thrombocytopenic purpura (Acute) Essential (primary) hypertension (Acute) Atherosclerotic heart disease of [place] coronary artery without angina pectoris (Acute) Hyperlipidemia (Acute) H/O hernia repair (Resolved) History of basal cell cancer (Acute) History of GA (myocardial infarction) (Acute) Cataract (Acute) BPH loc w/o ur obs/LUTS (Acute) Esophageal reflux (Acute) Osteoarthrosis (Acute) History of cardiac cath (Resolved) port placement (Acute) s/p intrajugular port placement (Resolved) History of removal of Port-a-Cath (Resolved ~09/2018) Chemotherapy management, encounter for (Resolved) Encounter for insertion of venous access port (Resolved) The patient is a 79 year old M with multiple comorbidities including coronary artery disease status post two-vessel CABG, right upper lobe primary malignant lung cancer, COPD 2 L of oxygen was sent from pulmonary clinic by Dr. Tate for hypotension, dyspnea on exertion and diffuse edema. 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 1. Severe anemia with symptomatic hypotension, with anasarca: Patient is being admitted in ICU. 2 units of PRBC ordered by ER physician. Lasix 20 mg IV for fluid overload. Monitor intake and output, posttransfusion H&H, and intensive monitoring. Consult mobile patrol officer 2. COPD with chronic hypoxic respiratory failure: Earlier during oxygen walking test as an outpatient, patient recommended 3 L of oxygen on ambulation. Currently pulse ox is 97% on 2 L of oxygen. Patient has chronic symptoms of cough, productive sputum secondary to COPD. On bronchodilator. Patient is on prednisone at home and continued. Bronchopulmonary hygiene with chest physiotherapy and Pep and incentive spirometry 3. Right upper lobe lung cancer status post chemoradiation with radiation changes on x-ray: Patient follows Dr. Tate. 4. Cardiac conditions: Coronary artery disease status post two-vessel CABG, possible heart failure status post AICD: Patient follows color consultant at [facility] . To get older echo. 2D echo ordered. EKG shows atrial sensed ventricular paced rhythm at 75 bpm. Lasix intermittent as as blood pressure permits and possible Lasix infusion drip if needed. 5. Multiple comorbidities including hypertension, ITP, dyslipidemia, BPH, prostate cancer, esophageal reflux: Advanced directive: Patient does not have living will. Advanced directive was directly discussed with patient and patient's near the bedside. Patient is apprehensive to talk in detail but overall he wants to to revive with CPR, intubation, ventilator support, central venous catheter and vasopressor if needed and DC shock. To further discussion with patient and his family among themselves, consider full code. Full code. Total time spent in [id number] encounter in discussion of advanced directive 16 minutes. Clinical Impression(s) from Imaging Studies Chest X-Ray 12/15/19 15:45 IMPRESSION: Stable examination with increased markings in the right upper lobe and right perihilar region suggestive of postradiation fibrosis. Inpatient E&M: 24686 Init Hosp L3 Procedures: 05540 Advncd Care Plan 30 Min
[2019-12-15] MEDS: Pantoprazole Sodium 40 MG Tablet PO (18:51)
[2019-12-15 18:58] LABS: Lactic Acid 2.5 mmol/L (0.4-1.9)
[2019-12-15] MEDS: Ipratropium/Albuterol Sulfate 3 ML AMPUL.NEB INHALATION ×2 (19:30→22:46)
[2019-12-15 20:31] LABS: M R Staph aureus DNA By PCR Negative (Negative); Probe Check PASS; Specimen Processing Control PASS
[2019-12-15 22:19] LABS: Reflex Lactate? Y
[2019-12-15] MEDS: Carvedilol 6.25 MG Tablet PO (23:00)
[2019-12-16] VITALS (35 sets, daily range): BP systolic 87–136; BP diastolic 37–106; PULSE 64–97; RESP 14–31; TEMP 36.6–37.4; O2SAT 94–100
[2019-12-16 01:32] LABS: Bacteria 0 SEEN /hpf (None Seen); Mucous, Urine 0 SEEN /hpf (<or=2+); Red Blood Cells-Urine 0 SEEN /hpf (0-5); Squamous Epithelial Cells - UA 0 SEEN /hpf (0-5); White Blood Cells 0 SEEN /hpf (0-5)
[2019-12-16 01:40] LABS: Color, Urine Yellow (Yellow); Glucose, Dipstick Normal (Normal); Ketone-Dipstick Negative (Negative); Leukocyte Esterase-Dipstick Negative /ul (Negative); Nitrite-Dipstick Negative (Negative); Occult Blood-Urine Negative /ul (Negative); Protein-Dipstick 15 mg/dl (Negative); Specific Gravity, Urine 1.015 (1.002-1.030); Urine Bilirubin Dipstick Negative (Negative); Urine Clarity Clear (Clear); Urine Urobilinogen Normal (Normal)
[2019-12-16 01:55] LABS: Lactic Acid 1.7 mmol/L (0.4-1.9)
--- NOTE | 2019-12-16 05:55 | ECHOCS_ITS ---
Reason For Study: CHF Procedure This was a 2D Doppler, Color Flow transthoracic echocardiogram. The study was technically difficult. Contrast injection was performed. Exam performed portable in ICU/CCU. Left Ventricle Moderately dilated left ventricle. The estimated ejection fraction is 25-30 %. Paced septal motion. There is severe global hypokinesis of the left ventricle. Right Ventricle Severely dilated right ventricle. ICD or pacer leads identified within the right ventricle. Moderate global right ventricular systolic dysfunction. Atria The left atrium is mildly enlarged. Normal right atrium. ICD or pacer leads identified within the right atrium. Normal atrial septum. Mitral Valve The mitral valve is structurally normal. No prolapse or stenosis seen. Mild (1+) posteriorly directed mitral valve insufficiency. Tricuspid Valve Normal tricuspid valve. Moderate (2+) tricuspid valve insufficiency. Right ventricular systolic pressure estimated to be 40 mmHg. Mild pulmonary hypertension. Aortic Valve Trisinus/trileaflet aortic valve. Mild diffuse aortic valve thickening. There is no aortic stenosis. Pulmonic Valve Normal pulmonic valve. Great Vessels Normal aortic root. Normal arch. The inferior vena cava is dilated. No collapse of the inferior vena cava. Pericardium/Pleural No pericardial effusion. Medication Diluted definity 4.0ml given slow IV push to enhance endocardial definition. MMode/2D Measurements & Calculations LVIDd: 5.5 cm IVSd: 0.96 cm Ao root diam: 3.2 cm LVIDs: 4.5 cm LVPWd: 0.68 cm RVDd: 5.0 cm FS: 18.1 % LAV(MOD-sp4): 62.0 ml LVAd ap4: 26.8 cm2 SV(MOD-sp4): 26.6 ml EDV(MOD-sp4): 80.1 ml EDV(sp4-el): 83.8 ml LVAs ap4: 21.1 cm2 ESV(MOD-sp4): 53.5 ml ESV(sp4-el): 58.7 ml EF(MOD-sp4): 33.2 % EF(sp4-el): 30.0 % SV(sp4-el): 25.1 ml LA A4 area: 22.9 cm2 LA dimension(2D): 4.2 cm RA A4 area: 18.4 cm2 Time Measurements MV dec time: 0.14 sec Doppler Measurements & Calculations MV E max renzo: 107.6 cm/sec Lat Peak E' Renzo: 8.8 cm/sec Med Peak E' Renzo: 3.9 cm/sec MV A max renzo: 38.4 cm/sec E/E' lat: 12.3 E/E' med: 27.8 MV E/A: 2.8 Ao V2 max: 136.0 cm/sec LV V1 max: 102.7 cm/sec PA V2 max: 100.4 cm/sec Ao max P.4 mmHg LV V1 max P.4 mmHg TR max renzo: 273.1 cm/sec TR max P.0 mmHg Interpretation Summary Moderately dilated left ventricle. The estimated ejection fraction is 25-30 %. There is severe global hypokinesis of the left ventricle. Severely dilated right ventricle. Moderate global right ventricular systolic dysfunction. The left atrium is mildly enlarged. Mild (1+) posteriorly directed mitral valve insufficiency. Moderate (2+) tricuspid valve insufficiency. Right ventricular systolic pressure estimated to be 40 mmHg. Mild pulmonary hypertension. The study was technically difficult. Contrast injection was performed. There is no comparison study available. Ordering Physician: Pedro Archuleta Referring Physician: DEEDEE CRUZ Performed By: Maryjane Wolfe, RDCS, RVT
[2019-12-16 06:48] LABS: Absolute Lymphocyte Count 0.34 X10^3/uL (0.83-4.51); Eosinophil# 0.01 X10^3/uL; Eosinophils% 0.3 % (0-5); Hematocrit 25.7 % (40-54); Hemoglobin 6.7 g/dL (13.0-16.5); Lymphocyte # 0.34 X10^3/ul (4.0); Lymphocyte % 9.3 % (19-41); Mean Corp Hgb Conc 26.1 g/dL (32-36); Mean Corpuscular Hgb 18.9 pg (27.0-32.0); Mean Corpuscular Volume 72.4 fL (80-94); Monocyte# 0.29 X10^3/uL; Monocyte% 7.9 % (0-10); NRBC Flagged by Analyzer 0.8 % (0-5); Neutrophil # 3.01 X10^3/uL (2.7-7.7); POSITIVE COUNT YES; POSITIVE DIFFERENTIAL YES; POSITIVE MORPHOLOGY YES; Platelet Count 58 K/mm3 (150-450); RBC Distribution Width CV 23.8 % (11.6-14.6); RBC Distribution Width SD 61.5 fl (35.1-43.9); Red Blood Count 3.55 M/mm3 (4.6-6.2); White Blood Count 3.7 K/mm3 (4.4-11.0)
[2019-12-16 06:52] LABS: Differential Indicated SCAN CRITERIA MET
[2019-12-16 07:07] LABS: Anion Gap 3 (5-15); BUN 27 mg/dL (7-18); BUN/Creat Ratio 25.5 RATIO (10-20); Calcium,Total 8.3 mg/dL (8.5-10.1); Chloride 110 mmol/L (98-107); Cholesterol 59 mg/dL (200); Creatinine, Serum 1.06 mg/dL (0.70-1.30); EST Glomerular Filtration Rate 71 mL/min (>60); Est Glom Filt Rate - Afr Amer 86 mL/min (>60); Estimated Creatinine Clearance 61.01 ml/min; Glucose 85 mg/dL (74-106); High Density Lipoprotein 23 mg/dL; Magnesium 2.6 mg/dL (1.6-2.6); Potassium 4.4 mmol/L (3.5-5.1); Sodium Level 141 mmol/L (136-145); Thyroid Stim Hormone (TSH) 4.79 uIU/mL (0.358-3.74); Triglycerides 78 mg/dL; Very Low Density Lipoprotein 16 mg/dL (5-40)
--- NOTE | 2019-12-16 07:12 | CON.PCM_ITS ---
Reason for Consult Date of Consultation: 12/16/19 History of Present Illness: The patient is an 79-year-old male, with a history as outlined below, who presented to the emergency department on December 14 with dizziness, lightheadedness and hypotension. The patient had just been evaluated by Dr. Tate in the pulmonary medicine clinic, at which time, he reported worsening dizziness over the last 2 days. The patient was evaluated by his primary care provider and was noted to have anasarca, which he attributed to did to protein malnutrition. 6-minute walk test completed in September 2019 revealed the need for 3 L/min of supplemental oxygen with exertion. Given the patient's symptoms, the patient was referred to the emergency department for evaluation. On presentation to the emergency department, the patient was noted to be afebrile, but was hypotensive with an initial blood pressure of 72/37. Initial laboratory evaluation revealed no evidence of a leukocytosis. Hemoglobin was low at 5.3 g/dL. Platelet count was also low at 68,000. The patient was previously noted to have a hemoglobin of 11.2 g/dL in September 2018. Lactate was mildly elevated to 2.5. BNP was mildly increased to 333. Liver function profile was within normal limits. MRSA screen was negative. Urine analysis was unremarkable. Plain film chest x-ray revealed blunting of the right costophrenic angle, evidence of a prior CABG and increased interstitial markings within the right upper lobe suggestive of postradiation fibrosis. The patient was subsequently admitted to the medical intensive care unit for further management. The patient has been transfused a total of 2 units of packed red blood cells. Hemoglobin this morning was noted to be 6.7 g/dL. The patient remains afebrile and hemodynamically stable. He is maintaining an oxygen saturation of 100% on 3 L/min at rest. The patient currently denies the presence of abdominal pain, hematochezia, hematemesis or melena. He does report a known history of reflux, for which he utilizes Prilosec in his home environment. He does report having had a colonoscopy done a number of years ago. Past Medical History Past Medical History (Chronic Problems): Chronic Problems (Last Reviewed 12/15/19 @ 13:40 by Paty Gallego) CHF (congestive heart failure) (Chronic) CAD (coronary artery disease) (Chronic) Pacemaker (Chronic) Hyperlipidemia (Chronic) CHF (congestive heart failure), NYHA class III (Chronic) Thrombocytopenia (Chronic) Primary malignant neoplasm of right upper lobe of lung (Chronic) Regional lymph node metastasis present (Chronic) COPD (chronic obstructive pulmonary disease) (Chronic) CAD (coronary artery disease) (Chronic) Presence of combination internal cardiac defibrillator (ICD) and pacemaker (Chronic) Medical History: Medical History (Last Reviewed 12/15/19 @ 13:40 by Paty Gallego) COPD (chronic obstructive pulmonary disease) (Acute) J44.9 Prostate cancer (Acute) C61 CHF (congestive heart failure) (Chronic) I50.9 CAD (coronary artery disease) (Chronic) I25.10 Pacemaker (Chronic) Z95.0 Enlarged lymph nodes (Acute) R59.9 long term current use of anticoagulant (Acute) Z79.01 Presence of automatic implantable cardioverter-defibrillator (Acute) Z95.810 Malignant neoplasm of unspecified part of unspecified bronchus or lung (Acute) 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) D69.3 Essential (primary) hypertension (Acute) I10 Atherosclerotic heart disease of [place] coronary artery without angina pectoris (Acute) I25.10 Hyperlipidemia (Chronic) E78.5 History of basal cell cancer (Acute) Z85.828 NECK History of [place] (myocardial infarction) (Acute) I25.2 10/2012 Cataract (Acute) H26.9 BILATERAL REMOVAL 2006 BPH loc w/o ur obs/LUTS (Acute) N40.0 Esophageal reflux (Acute) K21.9 Osteoarthrosis (Acute) M19.90 port placement (Acute) Allergies levofloxacin [From Levaquin] Allergy (Severe, Verified 12/15/19 14:28) Unknown shaking, kicking, out of it Home Medications: Ambulatory Orders Medication Instructions Recorded Albuterol IH (ProAir) [Proair Hfa] 1 puff INHALATION Q4H PRN 03/19/18 Aspirin [Aspirin, Baby] 81 mg PO DAILY@0800 03/19/18 Lisinopril [Zestril] 5 mg PO QHS 03/19/18 Omeprazole [Prilosec] 20 mg PO DAILY 03/19/18 Pravastatin [Pravachol] 40 mg PO DAILY 03/19/18 Psyllium [Metamucil] 1 packet PO DAILY PRN PRN 03/19/18 Fluticasone/Salmeterol [Advair 1 puff PO BID 08/24/18 100/50 Diskus] Furosemide [Lasix] 20 mg PO DAILY 08/24/18 Prednisone 10 mg PO DAILY 08/24/18 tiotropium bromide 18 mcg capsule 18 mcg INHALATION DAILY 09/13/19 with inhalation device Albuterol Aerosols [Ventolin 2.5 mg INHALATION Q6H PRN PRN 12/15/19 Aerosols] Benzonatate 200 mg PO TID PRN PRN 12/15/19 Carvedilol [Coreg] 12.5 mg PO BID 12/15/19 Cholecalciferol (VIT D3) [Vitamin 1,000 unit PO DAILY 12/15/19 D] Surgical History: Surgical History (Last Reviewed 12/15/19 @ 13:41 by Paty Gallego) Hx of CABG (Resolved) Z95.1 2012 H/O hernia repair (Resolved) Z98.890, Z87.19 2007 History of cardiac cath (Resolved) Z98.890 2012 s/p intrajugular port placement (Resolved) History of removal of Port-a-Cath (Resolved) Onset Date: ~09/2018 Z98.890 Smoking Status: Former smoker - *Family History Maternal Family History: Family History (Last Reviewed 12/15/19 @ 13:41 by Paty Gallego) Brother Prostate cancer Lung cancer Lung disease Heart disease Grandfather Prostate cancer Mother Diabetes Heart disease Father CVA (cerebral vascular accident) Review of Systems Constitutional: Reports: Fatigue Eyes: Denies: Blurred vision, Double vision HEENT: Denies: Head Aches, Sinus Congestion, Sinus Drainage Cardiovascular: Denies: Chest Pain, Palpitations Respiratory: Reports: Cough, Shortness of Breath Gastrointestinal: Denies: Abdominal Pain, Diarrhea, Hematemesis, Hematochezia, Nausea, Melena, Vomiting Genitourinary: Denies: Dysuria Musculoskeletal: Reports: Arm Pain Skin: Denies: Rash, Wounds Neurological: Reports: Balance problems Psychiatric: Denies: Anxiety, Depression, Homicidal Ideations, Suicidal Ideations Hematologic/ Lymphatic: Reports: Anemia, Hx of blood clot Objective: The patient's most recent lab work, culture data and imaging studies have all been personally reviewed. - Physical Exam Vitals/I&O's: Vital Signs Temp Pulse Resp BP Pulse Ox 98.7 F 66 15 117/50 L 100 12/16/19 04:00 12/16/19 07:00 12/16/19 07:00 12/16/19 07:00 12/16/19 07:00 Oxygen Flow Rate (L/min) 3 Oxygen Delivery Method Nasal Cannula Weight: 178 lb 5.663 oz Body Mass Index (BMI) 24.2 Intake and Output for Last 24 Hours 12/14/19 12/15/19 12/16/19 23:59 23:59 23:59 Intake Total 233.33 / 833.33 1355 / 1355 Output Total 200 / 450 450 / 450 Balance 33.33 / 383.33 905 / 905 General: Alert, Cooperative, No apparent distress HEENT: Atraumatic, PERRLA, Normocephalic Oral: No Gingival or Mucosal Lesions/ Ulcerations Neck: Supple, No Nodes, Trachea Midline Lungs: No rhonchi, No wheeze, No rales, Diminished Cardiovascular: Regular rate, Regular Rhythm, Normal S1, Normal S2 Abdomen: Bowel Sounds Present, Soft, Non Tender Extremities: No clubbing, No cyanosis, No edema Skin: No breakdown Musculoskeletal: No Tenderness to Palpation of Joints or Extremities Lymphatic: No Cervical, Supraclavicular, or Inguinal Adenopathy Neurological: Cranial nerves II-XII grossly intact, Neuro grossly intact Psych/Mental Status: Alert and oriented to time, place, person, mood and affect Labs (Last 48 Hours) 12/15/19 12/15/19 12/15/19 15:35 15:35 15:35 WBC 6.2 RBC 3.23 L Hgb 5.3 L* Hct 22.0 L MCV 68.1 L MCH 16.4 L MCHC 24.1 L RDW Std Deviation 52.0 H RDW Coeff of Khadijah 22.0 H Plt Count 68 L MPV TNP Immature Gran % (Auto) 0.500 Neut % (Auto) 88.7 H Lymph % (Auto) 6.2 L [place] % (Auto) 3.1 Eos % (Auto) 1.5 Baso % (Auto) 0.0 Absolute Neuts (auto) 5.5 Absolute Lymphs (auto) 0.38 L Nucleated RBC % 0 Differential Comment SCANNED Diff Path Review May foll Platelet Estimate Hypochromasia Anisocytosis Microcytosis Tear Drop Cells Stomatocytes Sodium 146 H Potassium 3.8 Chloride 117 H Carbon Dioxide 23.0 Anion Gap 6 BUN 25 H Creatinine 0.88 Estim Creat Clear Calc 73.48 Est GFR (MDRD) Af Amer 107 Est GFR (MDRD) Non-Af 89 BUN/Creatinine Ratio 28.5 H Glucose 82 Lactic Acid Calcium 6.8 L Magnesium Iron Ferritin Total Bilirubin 0.70 AST 13 L ALT 13 L Alkaline Phosphatase 48 Troponin I 0.026 B-Natriuretic Peptide 333.3 H Total Protein 5.0 L Albumin 2.5 L Globulin 2.5 Albumin/Globulin Ratio 1.0 Triglycerides Cholesterol LDL Cholesterol VLDL Cholesterol HDL Cholesterol TSH Urine Color Urine Clarity Urine pH Ur Specific [place] Urine Protein Urine Glucose (UA) Urine Ketones Urine Occult Blood Urine Nitrite Urine Bilirubin Urine Urobilinogen Ur Leukocyte Esterase Urine RBC Urine WBC Ur Squamous Epith Cells Urine Bacteria Urine Mucus MRSA (PCR) Blood Type Antibody Screen Crossmatch 12/15/19 12/15/19 12/15/19 16:30 18:00 18:05 WBC RBC Hgb Hct MCV MCH MCHC RDW Std Deviation RDW Coeff of Khadijah Plt Count MPV Immature Gran % (Auto) Neut % (Auto) Lymph % (Auto) [place] % (Auto) Eos % (Auto) Baso % (Auto) Absolute Neuts (auto) Absolute Lymphs (auto) Nucleated RBC % Differential Comment Diff Path Review Platelet Estimate Hypochromasia Anisocytosis Microcytosis Tear Drop Cells Stomatocytes Sodium Potassium Chloride Carbon Dioxide Anion Gap BUN Creatinine Estim Creat Clear Calc Est GFR (MDRD) Af Amer Est GFR (MDRD) Non-Af BUN/Creatinine Ratio Glucose Lactic Acid 2.5 H* Calcium Magnesium Iron Ferritin Total Bilirubin AST ALT Alkaline Phosphatase Troponin I B-Natriuretic Peptide Total Protein Albumin Globulin Albumin/Globulin Ratio Triglycerides Cholesterol LDL Cholesterol VLDL Cholesterol HDL Cholesterol TSH Urine Color Urine Clarity Urine pH Ur Specific [place] Urine Protein Urine Glucose (UA) Urine Ketones Urine Occult Blood Urine Nitrite Urine Bilirubin Urine Urobilinogen Ur Leukocyte Esterase Urine RBC Urine WBC Ur Squamous Epith Cells Urine Bacteria Urine Mucus MRSA (PCR) Negative Blood Type O POSITIVE Antibody Screen NEGATIVE Crossmatch See Detail 12/15/19 12/15/19 12/16/19 18:05 20:31 01:00 WBC RBC Hgb Hct MCV MCH MCHC RDW Std Deviation RDW Coeff of Khadijah Plt Count MPV Immature Gran % (Auto) Neut % (Auto) Lymph % (Auto) [place] % (Auto) Eos % (Auto) Baso % (Auto) Absolute Neuts (auto) Absolute Lymphs (auto) Nucleated RBC % Differential Comment Diff Path Review Platelet Estimate Hypochromasia Anisocytosis Microcytosis Tear Drop Cells Stomatocytes Sodium Potassium Chloride Carbon Dioxide Anion Gap BUN Creatinine Estim Creat Clear Calc Est GFR (MDRD) Af Amer Est GFR (MDRD) Non-Af BUN/Creatinine Ratio Glucose Lactic Acid Calcium Magnesium Iron Ferritin Total Bilirubin AST ALT Alkaline Phosphatase Troponin I 0.022 0.018 B-Natriuretic Peptide Total Protein Albumin Globulin Albumin/Globulin Ratio Triglycerides Cholesterol LDL Cholesterol VLDL Cholesterol HDL Cholesterol TSH Urine Color Yellow Urine Clarity Clear Urine pH 6.0 Ur Specific [place] 1.015 Urine Protein 15 H Urine Glucose (UA) Normal Urine Ketones Negative Urine Occult Blood Negative Urine Nitrite Negative Urine Bilirubin Negative Urine Urobilinogen Normal Ur Leukocyte Esterase Negative Urine RBC 0 SEEN Urine WBC 0 SEEN Ur Squamous Epith Cells 0 SEEN Urine Bacteria 0 SEEN Urine Mucus 0 SEEN MRSA (PCR) Blood Type Antibody Screen Crossmatch 12/16/19 12/16/19 12/16/19 01:10 06:30 06:30 WBC 3.7 L RBC 3.55 L Hgb 6.7 L Hct 25.7 L MCV 72.4 L D MCH 18.9 L MCHC 26.1 L D RDW Std Deviation 61.5 H RDW Coeff of Khadijah 23.8 H Plt Count 58 L MPV TNP Immature Gran % (Auto) 0.500 Neut % (Auto) 82.0 H Lymph % (Auto) 9.3 L [place] % (Auto) 7.9 Eos % (Auto) 0.3 Baso % (Auto) 0.0 Absolute Neuts (auto) 3.0 Absolute Lymphs (auto) 0.34 L Nucleated RBC % 0.8 Differential Comment SCANNED Diff Path Review May foll Platelet Estimate MKD DEC Hypochromasia 1+ Anisocytosis 1+ Microcytosis 1+ Tear Drop Cells RARE Stomatocytes RARE Sodium 141 Potassium 4.4 Chloride 110 H Carbon Dioxide 28.0 Anion Gap 3 L BUN 27 H Creatinine 1.06 Estim Creat Clear Calc 61.01 Est GFR (MDRD) Af Amer 86 Est GFR (MDRD) Non-Af 71 BUN/Creatinine Ratio 25.5 H Glucose 85 Lactic Acid 1.7 Calcium 8.3 L Magnesium 2.6 Iron Ferritin Total Bilirubin AST ALT Alkaline Phosphatase Troponin I B-Natriuretic Peptide Total Protein Albumin Globulin Albumin/Globulin Ratio Triglycerides 78 Cholesterol 59 LDL Cholesterol 20 VLDL Cholesterol 16 HDL Cholesterol 23 L TSH 4.79 H Urine Color Urine Clarity Urine pH Ur Specific [place] Urine Protein Urine Glucose (UA) Urine Ketones Urine Occult Blood Urine Nitrite Urine Bilirubin Urine Urobilinogen Ur Leukocyte Esterase Urine RBC Urine WBC Ur Squamous Epith Cells Urine Bacteria Urine Mucus MRSA (PCR) Blood Type Antibody Screen Crossmatch 12/16/19 06:30 WBC RBC Hgb Hct MCV MCH MCHC RDW Std Deviation RDW Coeff of Khadijah Plt Count MPV Immature Gran % (Auto) Neut % (Auto) Lymph % (Auto) [place] % (Auto) Eos % (Auto) Baso % (Auto) Absolute Neuts (auto) Absolute Lymphs (auto) Nucleated RBC % Differential Comment Diff Path Review Platelet Estimate Hypochromasia Anisocytosis Microcytosis Tear Drop Cells Stomatocytes Sodium Potassium Chloride Carbon Dioxide Anion Gap BUN Creatinine Estim Creat Clear Calc Est GFR (MDRD) Af Amer Est GFR (MDRD) Non-Af BUN/Creatinine Ratio Glucose Lactic Acid Calcium Magnesium Iron Pending Ferritin Pending Total Bilirubin AST ALT Alkaline Phosphatase Troponin I B-Natriuretic Peptide Total Protein Albumin Globulin Albumin/Globulin Ratio Triglycerides Cholesterol LDL Cholesterol VLDL Cholesterol HDL Cholesterol TSH Urine Color Urine Clarity Urine pH Ur Specific [place] Urine Protein Urine Glucose (UA) Urine Ketones Urine Occult Blood Urine Nitrite Urine Bilirubin Urine Urobilinogen Ur Leukocyte Esterase Urine RBC Urine WBC Ur Squamous Epith Cells Urine Bacteria Urine Mucus MRSA (PCR) Blood Type Antibody Screen Crossmatch Microbiology 12/15/19 19:30 Mucosa - Nasopharyngeal Respiratory Panel (PCR) - Final 12/16/19 01:00 Urine, Clean Catch Streptococcus pneumoniae Antigen (M - Final 12/16/19 01:00 Urine, Clean Catch Legionella Antigen - Final Clinical Impression(s) from Imaging Studies Chest X-Ray 12/15/19 15:45 IMPRESSION: Stable examination with increased markings in the right upper lobe and right perihilar region suggestive of postradiation fibrosis. Electronically Signed: Dangelo Blevins, at 16:02 EDT , Service support , Current Medications Acetaminophen (Tylenol) 650 mg PO Q6H PRN PRN PRN Reason: Pain Score 1-10/Temp > 100.7 F Albuterol Sulfate (Ventolin Aerosols) 2.5 mg INHALATION Q2H PRN PRN PRN Reason: SHORTNESS OF BREATH Albuterol/Ipratropium (Duoneb) 3 ml INHALATION Q4H.RT [facility] Last Admin: 12/16/19 03:05 Dose: Not Given Documented by: Benzonatate (Tessalon Perle) 200 mg PO TID PRN PRN PRN Reason: COUGH Carvedilol (Coreg) 6.25 mg PO BID [facility] Last Admin: 12/15/19 23:00 Dose: 6.25 mg Documented by: Cholecalciferol (Vitamin D (25mcg)) 1,000 unit PO DAILY [facility] Furosemide (Lasix) 20 mg IV X1 PRN PRN Reason: between transfusion Glucagon () 1 mg IM .X1 PRN PRN Reason: Hypoglycemia Sodium Chloride () 250 mls @ 15 mls/hr IV .[id number] PRN PRN Reason: Saline Flush Sodium Chloride () 250 mls @ 15 mls/hr IV .[id number] PRN PRN Reason: Additional IVPB Infusion Dextrose (Dextrose 10%-Water) 250 mls @ 999 mls/hr IV .Q16M PRN; Protocol PRN Reason: HYPOGLYCEMIA Morphine Sulfate () 2 mg IV Q3H PRN PRN PRN Reason: Pain Score 6-10/10 Nitroglycerin (Nitrostat) 0.4 mg SUBLINGUAL Q5M PRN PRN Reason: CARDIAC/CHEST PAIN Nutritional Formula (Lactose Free) (Ensure Enlive) 120 ml PO 4X/DAY [facility] Last Admin: 12/16/19 01:44 Dose: Not Given Documented by: Ondansetron HCl (Zofran) 4 mg IV Q8H PRN PRN PRN Reason: NAUSEA/VOMITING Oxycodone HCl (Oxyir) 5 mg PO Q4H PRN PRN PRN Reason: Pain Score 4-5/10 Pantoprazole Sodium (Protonix) 40 mg PO DAILY [facility] Last Admin: 12/15/19 18:51 Dose: 40 mg Documented by: Polyethylene Glycol (Miralax) 17 gm PO DAILY [facility] Pravastatin Sodium (Pravachol) 40 mg PO QHS [facility] Prednisone () 10 mg PO DAILYCM [facility] Prochlorperazine Edisylate (Compazine Iv) 5 mg IV Q4H PRN PRN PRN Reason: Breakthrough Nausea/Vomiting Psyllium Hydrophilic Mucilloid (Metamucil) 1 packet PO DAILY PRN PRN PRN Reason: Constipation Senna/Docusate Sodium (Senokot-S, Yahaira-Colace) 2 tablet PO BID PRN PRN Reason: Constipation Sodium Chloride () 10 - 40 ml IV UD PRN PRN Reason: SALINE FLUSH Assessment/Plan RECOMMENDATIONS: 1. Type and cross for 1 additional unit of packed red blood cells. Goal to maintain a hemoglobin at or above 7 g/dL. 2. Check stool occult blood. 3. Obtain echocardiogram. 4. Start PPI therapy twice daily. 5. Continue bronchodilator therapy and chronic prednisone dose. 6. Wean supplemental oxygen to maintain saturations at or above 90%. 7. Surgery consultation for possible upper/lower endoscopy. IMPRESSIONS: 1. Symptomatic anemia/chronic thrombocytopenia (immune thrombocytopenic purpura) The patient was admitted to the hospital with symptomatic anemia and a hemoglobin of 5.3 g/dL. There are no overt signs of blood loss at this time. The patient will be transfused additional blood products in an attempt to maintain a hemoglobin level at or above 7 g/dL. Surgery has been consulted to evaluate for possible endoscopic evaluation. The patient will be started on PPI therapy twice daily. We will check iron studies and stool for occult blood. 2. 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 Villareal of oncology. 3. History of coronary artery disease status post CABG/questionable history of CHF Complicates care, management, recovery and prognosis. Echocardiogram is currently pending. Will provide the patient with diuretic therapy along with blood product administration to prevent volume overload. This note was generated with [employer] dictation software. It may contain incorrect words, spelling, and punctuation that were not noted in checking the note before signing. Inpatient E&M: 88925 Init Hosp L3
[2019-12-16 07:13] LABS: Differential Comment SCANNED
[2019-12-16 07:14] LABS: Anisocytosis 1+; Hypochromasia 1+; Microcytosis 1+; Platelet Estimate MKD DEC (ADEQ); Stomatocyte RARE; Tear Drop Cell RARE
[2019-12-16] MEDS: Ipratropium/Albuterol Sulfate 3 ML AMPUL.NEB INHALATION ×4 (07:29→20:03)
--- NOTE | 2019-12-16 07:29 | PN_ITS ---
Reason for Visit: Follow-up severe anemia Subjective: Patient is an 79-year-old gentleman presented with hypotension dyspnea and anas arca found to have severe anemia Objective: GENERAL: cooperative HEENT: Atraumatic; EYES; Anicteric, Normal Conjunctiva NECK; supple, normal thyroid, RESPIRATORY: Diminished to auscultation CARDIOVASCULAR: Regular S1 S2, GI: soft, normoactive bowel sounds, : No Renal angle tenderness; EXTREMITIES: Edema involving both upper and lower extremities MUSCULOSKELETAL: no muscle waisting NEURO: Awake; no lateralizing signs. SKIN: No Rash PSYCH; Flat affect Vitals/I&O's: Vital Signs Temp Pulse Resp BP Pulse Ox 98.7 F 66 15 117/50 L 100 12/16/19 04:00 12/16/19 07:00 12/16/19 07:00 12/16/19 07:00 12/16/19 07:00 Oxygen Flow Rate (L/min) 3 Oxygen Delivery Method Nasal Cannula Weight: 80.9 kg Body Mass Index (BMI) 24.2 Intake and Output for Last 24 Hours 12/14/19 12/15/19 12/16/19 23:59 23:59 23:59 Intake Total 233.33 / 833.33 1355 / 1355 Output Total 200 / 450 450 / 450 Balance 33.33 / 383.33 905 / 905 Microbiology Past 72 Hours 12/15/19 19:30 Mucosa - Nasopharyngeal Respiratory Panel (PCR) - Final 12/16/19 01:00 Urine, Clean Catch Streptococcus pneumoniae Antigen (M - Final 12/16/19 01:00 Urine, Clean Catch Legionella Antigen - Final Laboratory Results 12/15/19 15:35: WBC 6.2, RBC 3.23 L, Hgb 5.3 L*, Hct 22.0 L, MCV 68.1 L, MCH 16.4 L, MCHC 24.1 L, RDW Std Deviation 52.0 H, RDW Coeff of Khadijah 22.0 H, Plt Count 68 L, MPV TNP, Immature Gran % (Auto) 0.500, Neut % (Auto) 88.7 H, Lymph % (Auto) 6.2 L, [place] % (Auto) 3.1, Eos % (Auto) 1.5, Baso % (Auto) 0.0, Absolute Neuts (auto) 5.5, Absolute Lymphs (auto) 0.38 L, Nucleated RBC % 0, Differential Comment SCANNED, Diff Path Review February12/15/19 15:35: Sodium 146 H, Potassium 3.8, Chloride 117 H, Carbon Dioxide 23.0, Anion Gap 6, BUN 25 H, Creatinine 0.88, Estim Creat Clear Calc 73.48, Est GFR (MDRD) Af Amer 107, Est GFR (MDRD) Non-Af 89, BUN/Creatinine Ratio 28.5 H, Glucose 82, Calcium 6.8 L, Total Bilirubin 0.70, AST 13 L, ALT 13 L, Alkaline Phosphatase 48, Troponin I 0.026, Total Protein 5.0 L, Albumin 2.5 L, Globulin 2.5, Albumin/Globulin Ratio 1.0 12/15/19 15:35: B-Natriuretic Peptide 333.3 H 12/15/19 16:30: Blood Type O POSITIVE, Antibody Screen NEGATIVE, Crossmatch See Detail 12/15/19 18:00: Lactic Acid 2.5 H* 12/15/19 18:05: MRSA (PCR) Negative 12/15/19 18:05: Troponin I 0.022 12/15/19 20:31: Troponin I 0.018 12/16/19 01:00: Urine Color Yellow, Urine Clarity Clear, Urine pH 6.0, Ur Specific [place] 1.015, Urine Protein 15 H, Urine Glucose (UA) Normal, Urine Ketones Negative, Urine Occult Blood Negative, Urine Nitrite Negative, Urine Bilirubin Negative, Urine Urobilinogen Normal, Ur Leukocyte Esterase Negative, Urine RBC 0 SEEN, Urine WBC 0 SEEN, Ur Squamous Epith Cells 0 SEEN, Urine Bacteria 0 SEEN, Urine Mucus 0 SEEN 12/16/19 01:10: Lactic Acid 1.7 12/16/19 06:30: WBC 3.7 L, RBC 3.55 L, Hgb 6.7 L, Hct 25.7 L, MCV 72.4 L D, MCH 18.9 L, MCHC 26.1 L D, RDW Std Deviation 61.5 H, RDW Coeff of Khadijah 23.8 H, Plt Count 58 L, MPV TNP, Immature Gran % (Auto) 0.500, Neut % (Auto) 82.0 H, Lymph % (Auto) 9.3 L, Rose[place] % (Auto) 7.9, Eos % (Auto) 0.3, Baso % (Auto) 0.0, Absolute Neuts (auto) 3.0, Absolute Lymphs (auto) 0.34 L, Nucleated RBC % 0.8, Differential Comment SCANNED, Diff Path Review May foll, Platelet Estimate MKD DEC, Hypochromasia 1+, Anisocytosis 1+, Microcytosis 1+, Tear Drop Cells RARE, Stomatocytes RARE 12/16/19 06:30: Sodium 141, Potassium 4.4, Chloride 110 H, Carbon Dioxide 28.0, Anion Gap 3 L, BUN 27 H, Creatinine 1.06, Estim Creat Clear Calc 61.01, Est GFR (MDRD) Af Amer 86, Est GFR (MDRD) Non-Af 71, BUN/Creatinine Ratio 25.5 H, Glucose 85, Calcium 8.3 L, Magnesium 2.6, Triglycerides 78, Cholesterol 59, LDL Cholesterol 20, VLDL Cholesterol 16, HDL Cholesterol 23 L, TSH 4.79 H Current Medications Acetaminophen (Tylenol) 650 mg PO Q6H PRN PRN PRN Reason: Pain Score 1-10/Temp > 100.7 F Albuterol Sulfate (Ventolin Aerosols) 2.5 mg INHALATION Q2H PRN PRN PRN Reason: SHORTNESS OF BREATH Albuterol/Ipratropium (Duoneb) 3 ml INHALATION Q4H.RT [facility] Last Admin: 12/16/19 03:05 Dose: Not Given Documented by: Benzonatate (Tessalon Perle) 200 mg PO TID PRN PRN PRN Reason: COUGH Carvedilol (Coreg) 6.25 mg PO BID [facility] Last Admin: 12/15/19 23:00 Dose: 6.25 mg Documented by: Cholecalciferol (Vitamin D (25mcg)) 1,000 unit PO DAILY [facility] Furosemide (Lasix) 20 mg IV X1 PRN PRN Reason: between transfusion Glucagon () 1 mg IM .X1 PRN PRN Reason: Hypoglycemia Sodium Chloride () 250 mls @ 15 mls/hr IV .[id number] PRN PRN Reason: Saline Flush Sodium Chloride () 250 mls @ 15 mls/hr IV .[id number] PRN PRN Reason: Additional IVPB Infusion Dextrose (Dextrose 10%-Water) 250 mls @ 999 mls/hr IV .Q16M PRN; Protocol PRN Reason: HYPOGLYCEMIA Pantoprazole Sodium 40 mg/ (Sodium Chloride) 110 mls @ 330 mls/hr IV Q12 CHRISTINA Nitroglycerin (Nitrostat) 0.4 mg SUBLINGUAL Q5M PRN PRN Reason: CARDIAC/CHEST PAIN Nutritional Formula (Lactose Free) (Ensure Enlive) 120 ml PO 4X/DAY [facility] Last Admin: 12/16/19 01:44 Dose: Not Given Documented by: Ondansetron HCl (Zofran) 4 mg IV Q8H PRN PRN PRN Reason: NAUSEA/VOMITING Oxycodone HCl (Oxyir) 5 mg PO Q4H PRN PRN PRN Reason: Pain Score 4-5/10 Polyethylene Glycol (Miralax) 17 gm PO DAILY [facility] Pravastatin Sodium (Pravachol) 40 mg PO QHS [facility] Prednisone () 10 mg PO DAILYCM [facility] Prochlorperazine Edisylate (Compazine Iv) 5 mg IV Q4H PRN PRN PRN Reason: Breakthrough Nausea/Vomiting Psyllium Hydrophilic Mucilloid (Metamucil) 1 packet PO DAILY PRN PRN PRN Reason: Constipation Senna/Docusate Sodium (Senokot-S, Yahaira-Colace) 2 tablet PO BID PRN PRN Reason: Constipation Sodium Chloride () 10 - 40 ml IV UD PRN PRN Reason: SALINE FLUSH STROKE Vital Signs/Narrative: Vital Signs Temp Pulse Resp BP Pulse Ox 12/16/19 07:00 66 15 117/50 L 100 12/16/19 06:00 70 20 H 105/58 L 100 12/16/19 05:00 90 19 H 120/55 L 100 12/16/19 04:00 98.7 F 75 20 H 90/50 L 100 Medical Necessity - Tobacco Use Smoking Status: Former smoker Assessment/Plan All Active Problems (Last Reviewed 12/15/19 @ 13:40 by Paty Gallego) COPD (chronic obstructive pulmonary disease) (Acute) Prostate cancer (Acute) Hx of CABG (Resolved) Enlarged lymph nodes (Acute) intermediate project manager current use of anticoagulant (Acute) Presence of automatic implantable cardioverter-defibrillator (Acute) Malignant neoplasm of unspecified part of unspecified bronchus or lung (Acute) Immune thrombocytopenic purpura (Acute) Essential (primary) hypertension (Acute) Atherosclerotic heart disease of [place] coronary artery without angina pectoris (Acute) H/O hernia repair (Resolved) History of basal cell cancer (Acute) History of ID (myocardial infarction) (Acute) Cataract (Acute) BPH loc w/o ur obs/LUTS (Acute) Esophageal reflux (Acute) Osteoarthrosis (Acute) History of cardiac cath (Resolved) port placement (Acute) s/p intrajugular port placement (Resolved) History of removal of Port-a-Cath (Resolved ~09/2018) Chemotherapy management, encounter for (Resolved) Encounter for insertion of venous access port (Resolved) Patient is an 79-year-old gentleman presented with hypotension dyspnea and anasarca found to have severe anemia 1. Severe anemia with hemoglobin of 5.3 -Admitted to the intensive care unit patient was transfused 2 unit PRBC consulta tion placed to Dr. Perry with general surgery plan for patient to undergo endoscopic evaluation on 12/17/2019 2. Acute congestive heart failure with anasarca -Thought to be precipitated by patient underlying anemia. Echo obtained demonstrated EF of 25 to 30%: Patient has been seen in consultation by cardiology 3. Chronic hypoxic respiratory failure -secondary to COPD 4. Right upper lobe lung CA ?Treated with chemoradiation 5. Coronary artery disease -with previous CABG 6. Ischemic cardiomyopathy - status post AICD 7. Essential hypertension ?BP stable 8. Chronic ITP ?platelets stable with average platelet count of 60 9. Dyslipidemia - patient is on statin therapy, continued at home dose Inpatient E&M: [id number] [facility] L3
[2019-12-16 08:01] LABS: Ferritin 7 ng/mL (26-388); Iron 20 ug/dL (65-175)
[2019-12-16] MEDS: predniSONE 10 MG Tablet PO (08:15)
--- NOTE | 2019-12-16 08:24 | PCM.CONS.C ---
Problem List (1) CHF (congestive heart failure) Status: Chronic (2) CAD (coronary artery disease) Status: Chronic (3) Hx of CABG Status: Resolved Comment: 2012 (4) Pacemaker Status: Chronic (5) Hyperlipidemia Status: Chronic Reason for Consult Date of Consultation: 12/16/19 Reason for Consultation: Hx of CAD, CABG, CHF, ICD History of Present Illness: The patient is a 79 year old M who presented to [facility] Emergency Department on 12/15/2019 for lightheadedness and hypotension. He has a past medical history of coronary artery bypass x2, COPD with 2 L of oxygen chronically, status post ICD, congestive heart failure, and hypertension. He also has a past medical history of lung cancer 2018 which he follows with Dr. Villareal. He recently noted lower extremity edema and increased his Lasix without improvement. His Emergency Department work-up revealed an EKG as AV paced at 75 bpm, hemoglobin of 5.3, hematocrit of 22, initial troponin of 0.026, BTNP of 333.3, and chest x-ray suggestive of postradiation fibrosis. He was admitted for anemia and transfused 2 units of packed red blood cells. Cardiology was consulted for further input. Of note patient has followed with wildlife policy professional at [facility], Dr. Morales Past Medical History Allergies/Adverse Reactions: Allergies levofloxacin [From Levaquin] Allergy (Severe, Verified 12/15/19 14:28) Unknown shaking, kicking, out of it Home Medications: Ambulatory Orders Medication Instructions Recorded Albuterol IH (ProAir) [Proair Hfa] 1 puff INHALATION Q4H PRN 03/19/18 Aspirin [Aspirin, Baby] 81 mg PO DAILY@0800 03/19/18 Lisinopril [Zestril] 5 mg PO QHS 03/19/18 Omeprazole [Prilosec] 20 mg PO DAILY 03/19/18 Pravastatin [Pravachol] 40 mg PO DAILY 03/19/18 Psyllium [Metamucil] 1 packet PO DAILY PRN PRN 03/19/18 Fluticasone/Salmeterol [Advair 1 puff PO BID 08/24/18 100/50 Diskus] Furosemide [Lasix] 20 mg PO DAILY 08/24/18 Prednisone 10 mg PO DAILY 08/24/18 tiotropium bromide 18 mcg capsule 18 mcg INHALATION DAILY 09/13/19 with inhalation device Albuterol Aerosols [Ventolin 2.5 mg INHALATION Q6H PRN PRN 12/15/19 Aerosols] Benzonatate 200 mg PO TID PRN PRN 12/15/19 Carvedilol [Coreg] 12.5 mg PO BID 12/15/19 Cholecalciferol (VIT D3) [Vitamin 1,000 unit PO DAILY 12/15/19 D] Past Medical History (Chronic Problems): Chronic Problems (Last Reviewed 12/15/19 @ 13:40 by Paty Gallego) CHF (congestive heart failure) (Chronic) CAD (coronary artery disease) (Chronic) Pacemaker (Chronic) Hyperlipidemia (Chronic) CHF (congestive heart failure), NYHA class III (Chronic) Thrombocytopenia (Chronic) Primary malignant neoplasm of right upper lobe of lung (Chronic) Regional lymph node metastasis present (Chronic) COPD (chronic obstructive pulmonary disease) (Chronic) CAD (coronary artery disease) (Chronic) Presence of combination internal cardiac defibrillator (ICD) and pacemaker (Chronic) - *Family History Maternal Family History: Family History (Last Reviewed 12/15/19 @ 13:41 by Paty Gallego) Brother Prostate cancer Lung cancer Lung disease Heart disease Grandfather Prostate cancer Mother Diabetes Heart disease Father CVA (cerebral vascular accident) Smoking Status: Former smoker Review of Systems - Review of Systems General: Denies: Fever, Fatigue, Chills HEENT: Denies: Vision Change Cardiovascular: Reports: Shortness of Breath, Shortness of Breath with Exertion, Peripheral Edema, Lightheadedness, Dizziness, Near Syncope. Denies: Chest Discomfort, Chest Discomfort at Rest, Chest Discomfort with Exertion, Chest Pressure, Chest Tightness, Chest Heaviness, Shortness of Breath at Rest, Orthopnea, PND, Palpitations, Syncope, Orthostatic Symptoms, Claudication Muscoloskeletal: Denies: Myalgias, Claudication Skin: Denies: Rash Hematologic/ Lymphatic: Reports: Anemia Subjectve: Patient seen and evaluated. He does acknowledge feeling improved since admission. He denies any chest pain. He states his shortness of breath is relatively at baseline. He denies any lightheaded and dizziness today at rest. Objective: Vital Signs Temp Pulse Resp BP Pulse Ox 98.7 F 66 15 117/50 L 100 12/16/19 04:00 12/16/19 07:00 12/16/19 07:00 12/16/19 07:00 12/16/19 07:00 Oxygen Flow Rate (L/min) 3 Oxygen Delivery Method Nasal Cannula Weight: 178 lb 5.663 oz Body Mass Index (BMI) 24.2 Intake and Output for Last 24 Hours 12/14/19 12/15/19 12/16/19 23:59 23:59 23:59 Intake Total 233.33 / 833.33 1355 / 1355 Output Total 200 / 450 450 / 450 Balance 33.33 / 383.33 905 / 905 General: Healthy Appearing, Awake, Alert, Oriented x 3, Cooperative HEENT: Atraumatic Oral: Moist Mucosa Neck: No JVD Lungs: Inspiratory Wheezes - Nishant Cardiovascular: Regular Rhythm, Normal S1, Normal S2 Murmur Murmur: Grade 1/6, LLSB Vascular: No Carotid Bruits Abdomen: Bowel Sounds Present, Soft Extremities: No Cyanosis, No Clubbing, No edema, Normal Capillary Refill Skin: No Rashes Lymphatic: No Lymph Node Enlargement Neurological: No Focal Motor or Sensory Deficit Psych/Mental Status: Appropriate, Normal Affect 12/15/19 15:35: WBC 6.2, RBC 3.23 L, Hgb 5.3 L*, Hct 22.0 L, MCV 68.1 L, MCH 16.4 L, MCHC 24.1 L, Plt Count 68 L, MPV TNP, Immature Gran % (Auto) 0.500, Neut % (Auto) 88.7 H, Lymph % (Auto) 6.2 L, [place] % (Auto) 3.1, Eos % (Auto) 1.5, Baso % (Auto) 0.0, Absolute Neuts (auto) 5.5, Nucleated RBC % 0 12/15/19 15:35: Sodium 146 H, Potassium 3.8, Chloride 117 H, Carbon Dioxide 23.0, Anion Gap 6, BUN 25 H, Creatinine 0.88, Est GFR (MDRD) Af Amer 107, Est GFR (MDRD) Non-Af 89, BUN/Creatinine Ratio 28.5 H, Glucose 82, Calcium 6.8 L, Total Bilirubin 0.70, Troponin I 0.026 12/15/19 15:35: B-Natriuretic Peptide 333.3 H 12/15/19 18:00: Lactic Acid 2.5 H* 12/15/19 18:05: Troponin I 0.022 12/15/19 20:31: Troponin I 0.018 12/16/19 01:00: Urine Color Yellow, Urine Clarity Clear, Urine pH 6.0, Ur Specific Gray 1.015, Urine Protein 15 H, Urine Glucose (UA) Normal, Urine Ketones Negative, Urine Occult Blood Negative, Urine Nitrite Negative, Urine Bilirubin Negative, Urine Urobilinogen Normal, Ur Leukocyte Esterase Negative, Urine RBC 0 SEEN, Urine WBC 0 SEEN 12/16/19 01:10: Lactic Acid 1.7 12/16/19 06:30: WBC 3.7 L, RBC 3.55 L, Hgb 6.7 L, Hct 25.7 L, MCV 72.4 L D, MCH 18.9 L, MCHC 26.1 L D, Plt Count 58 L, MPV TNP, Immature Gran % (Auto) 0.500, Neut % (Auto) 82.0 H, Lymph % (Auto) 9.3 L, [place] % (Auto) 7.9, Eos % (Auto) 0.3, Baso % (Auto) 0.0, Absolute Neuts (auto) 3.0, Nucleated RBC % 0.8 12/16/19 06:30: Sodium 141, Potassium 4.4, Chloride 110 H, Carbon Dioxide 28.0, Anion Gap 3 L, BUN 27 H, Creatinine 1.06, Est GFR (MDRD) Af Amer 86, Est GFR (MDRD) Non-Af 71, BUN/Creatinine Ratio 25.5 H, Glucose 85, Calcium 8.3 L, Magnesium 2.6, Triglycerides 78, Cholesterol 59, LDL Cholesterol 20, VLDL Cholesterol 16, HDL Cholesterol 23 L 12/16/19 06:30: Iron 20 L, Ferritin 7 L Rhythm: EKG: ECHO: Stress Test: Cardiac Cath: PCI: CT Surgery: Holter monitor: EPS: PPM: CXR: Chest CT Scan: Assessment/Plan 1. Atherosclerotic Coronary Artery Disease Patient has history of bypass surgery x2 in 2012. These records are unavailable for review. The exact details are unknown at this time. These records will be requested for continuity of care and help evaluate care here. His troponin trend has been negative at 0.026, 0.022, and 0.018. He denies any symptoms of coronary artery disease. In light of his low hemoglobin, heart catheterization, antiplatelet therapy, and anticoagulation, would not be advised at this time. Thus, his coronary artery disease status can be assessed on an outpatient basis or once medically stabilized if still indicated. At this time, he will continue current beta-leonel. We will continue to hold aspirin therapy. 2. Congestive heart failure He will undergo an echocardiogram to evaluate LV function, wall motion, and valvular status. He will continue with current beta-leonel. We will resume EDEN inhibitor in the future as his blood pressure stabilizes. Records from primary wildlife policy professional will be requested to evaluate medical therapy as well as previous echocardiogram results. 3. Status post ICD He does check this on a routine basis and recently underwent generator change. At this time, his lightheadedness and dizziness is attributed to his reduced hemoglobin rather than electrical abnormality. He will continue to follow on outpatient basis. 4. Anemia At this time, this is attributed to his lightheadedness, dizziness, and hypotension. He will continue with packed red blood cell and evaluation for bleed. He will continue PPI. We will need to closely monitor fluid volume status as he receives packed red blood cells to avoid congestive heart failure. 5. Hypertension Patient's blood pressure is well-controlled. We will continue to monitor. We will not make any medication regimen changes. 6. Hyperlipidemia He will continue current statin medication. Patient's care was discussed with Dr. Pacheco, who personally evaluated patient. Please see his dictation for further input and recommendations. Thank you for allowing us to participate in the patients plan of care, if you have any questions please do not hesitate to call. This note was generated using a voice recognition system and there may be incorrect words, spelling or punctuation that were not noted when reviewing the office note prior to saving.
--- NOTE | 2019-12-16 08:27 | CON.PCM_ITS ---
Reason for Consult Date of Consultation: 12/16/19 Reason for Consultation: Anemia History of Present Illness: The patient is a 79 year old M who was admitted with hypotension and found to be severely anemic. The patient notes no gross blood in the stool or abdominal pain. He says his last colonoscopy was over 10 years ago and he is never had an EGD. He is on aspirin but no other blood thinners. 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) Medical History: Medical History (Last Reviewed 12/15/19 @ 13:40 by Paty Gallego) COPD (chronic obstructive pulmonary disease) (Acute) J44.9 Prostate cancer (Acute) C61 CHF (congestive heart failure) (Acute) I50.9 CAD (coronary artery disease) (Acute) I25.10 Pacemaker (Acute) Z95.0 Enlarged lymph nodes (Acute) R59.9 custodial current use of anticoagulant (Acute) Z79.01 Presence of automatic implantable cardioverter-defibrillator (Acute) Z95.810 Malignant neoplasm of unspecified part of unspecified bronchus or lung (Acute) 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) D69.3 Essential (primary) hypertension (Acute) I10 Atherosclerotic heart disease of [place] coronary artery without angina pectoris (Acute) I25.10 Hyperlipidemia (Acute) E78.5 History of basal cell cancer (Acute) Z85.828 NECK History of [place] (myocardial infarction) (Acute) I25.2 10/2012 Cataract (Acute) H26.9 BILATERAL REMOVAL 2006 BPH loc w/o ur obs/LUTS (Acute) N40.0 Esophageal reflux (Acute) K21.9 Osteoarthrosis (Acute) M19.90 port placement (Acute) Allergies levofloxacin [From Levaquin] Allergy (Severe, Verified 12/15/19 14:28) Unknown shaking, kicking, out of it Home Medications: Ambulatory Orders Medication Instructions Recorded Albuterol IH (ProAir) [Proair Hfa] 1 puff INHALATION Q4H PRN 03/19/18 Aspirin [Aspirin, Baby] 81 mg PO DAILY@0800 03/19/18 Lisinopril [Zestril] 5 mg PO QHS 03/19/18 Omeprazole [Prilosec] 20 mg PO DAILY 03/19/18 Pravastatin [Pravachol] 40 mg PO DAILY 03/19/18 Psyllium [Metamucil] 1 packet PO DAILY PRN PRN 03/19/18 Fluticasone/Salmeterol [Advair 1 puff PO BID 08/24/18 100/50 Diskus] Furosemide [Lasix] 20 mg PO DAILY 08/24/18 Prednisone 10 mg PO DAILY 08/24/18 tiotropium bromide 18 mcg capsule 18 mcg INHALATION DAILY 09/13/19 with inhalation device Albuterol Aerosols [Ventolin 2.5 mg INHALATION Q6H PRN PRN 12/15/19 Aerosols] Benzonatate 200 mg PO TID PRN PRN 12/15/19 Carvedilol [Coreg] 12.5 mg PO BID 12/15/19 Cholecalciferol (VIT D3) [Vitamin 1,000 unit PO DAILY 12/15/19 D] Surgical History: Surgical History (Last Reviewed 12/15/19 @ 13:41 by Paty Gallego) Hx of CABG (Resolved) Z95.1 2012 H/O hernia repair (Resolved) Z98.890, Z87.19 2007 History of cardiac cath (Resolved) Z98.890 2012 s/p intrajugular port placement (Resolved) History of removal of Port-a-Cath (Resolved) Onset Date: ~09/2018 Z98.890 Smoking Status: Former smoker - *Family History Maternal Family History: Family History (Last Reviewed 12/15/19 @ 13:41 by Paty Gallego) Brother Prostate cancer Lung cancer Lung disease Heart disease Grandfather Prostate cancer Mother Diabetes Heart disease Father CVA (cerebral vascular accident) Review of Systems Constitutional: Denies: Anorexia, Fever HEENT: Denies: Difficulty Hearing, Difficulty Swallowing Cardiovascular: Denies: Chest Pain Respiratory: Reports: Cough, Shortness of Breath Gastrointestinal: Reports: Constipation. Denies: Abdominal Pain, Hematemesis, Hematochezia, Nausea, Melena, Vomiting Musculoskeletal: Denies: Joint Tenderness Hematologic/ Lymphatic: Reports: Anemia - Physical Exam Vitals/I&O's: Vital Signs Temp Pulse Resp BP Pulse Ox 98.7 F 66 15 117/50 L 100 12/16/19 04:00 12/16/19 07:00 12/16/19 07:00 12/16/19 07:00 12/16/19 07:00 Oxygen Flow Rate (L/min) 3 Oxygen Delivery Method Nasal Cannula Weight: 178 lb 5.663 oz Body Mass Index (BMI) 24.2 Intake and Output for Last 24 Hours 12/14/19 12/15/19 12/16/19 23:59 23:59 23:59 Intake Total 233.33 / 833.33 1355 / 1355 Output Total 200 / 450 450 / 450 Balance 33.33 / 383.33 905 / 905 General: Alert, Oriented x3 Neck: No JVD Lungs: Short of Breath Cardiovascular: Regular rate, Regular Rhythm Abdomen: Soft, Non Tender, Non-Distended Microbiology Past 72 Hours 12/15/19 19:30 Mucosa - Nasopharyngeal Respiratory Panel (PCR) - Final 12/16/19 01:00 Urine, Clean Catch Streptococcus pneumoniae Antigen (M - Final 12/16/19 01:00 Urine, Clean Catch Legionella Antigen - Final Laboratory Results 12/15/19 15:35: WBC 6.2, RBC 3.23 L, Hgb 5.3 L*, Hct 22.0 L, MCV 68.1 L, MCH 16.4 L, MCHC 24.1 L, RDW Std Deviation 52.0 H, RDW Coeff of Khadijah 22.0 H, Plt Count 68 L, MPV TNP, Immature Gran % (Auto) 0.500, Neut % (Auto) 88.7 H, Lymph % (Auto) 6.2 L, Weber % (Auto) 3.1, Eos % (Auto) 1.5, Baso % (Auto) 0.0, Absolute Neuts (auto) 5.5, Absolute Lymphs (auto) 0.38 L, Nucleated RBC % 0, Differential Comment SCANNED, Diff Path Review February12/15/19 15:35: Sodium 146 H, Potassium 3.8, Chloride 117 H, Carbon Dioxide 23.0, Anion Gap 6, BUN 25 H, Creatinine 0.88, Estim Creat Clear Calc 73.48, Est GFR (MDRD) Af Amer 107, Est GFR (MDRD) Non-Af 89, BUN/Creatinine Ratio 28.5 H, Glucose 82, Calcium 6.8 L, Total Bilirubin 0.70, AST 13 L, ALT 13 L, Alkaline Phosphatase 48, Troponin I 0.026, Total Protein 5.0 L, Albumin 2.5 L, Globulin 2.5, Albumin/Globulin Ratio 1.0 12/15/19 15:35: B-Natriuretic Peptide 333.3 H 12/15/19 16:30: Blood Type O POSITIVE, Antibody Screen NEGATIVE, Crossmatch See Detail 12/15/19 18:00: Lactic Acid 2.5 H* 12/15/19 18:05: MRSA (PCR) Negative 12/15/19 18:05: Troponin I 0.022 12/15/19 20:31: Troponin I 0.018 12/16/19 01:00: Urine Color Yellow, Urine Clarity Clear, Urine pH 6.0, Ur Specific [place] 1.015, Urine Protein 15 H, Urine Glucose (UA) Normal, Urine Ketones Negative, Urine Occult Blood Negative, Urine Nitrite Negative, Urine Bilirubin Negative, Urine Urobilinogen Normal, Ur Leukocyte Esterase Negative, Urine RBC 0 SEEN, Urine WBC 0 SEEN, Ur Squamous Epith Cells 0 SEEN, Urine Bacteria 0 SEEN, Urine Mucus 0 SEEN 12/16/19 01:10: Lactic Acid 1.7 12/16/19 06:30: WBC 3.7 L, RBC 3.55 L, Hgb 6.7 L, Hct 25.7 L, MCV 72.4 L D, MCH 18.9 L, MCHC 26.1 L D, RDW Std Deviation 61.5 H, RDW Coeff of Khadijah 23.8 H, Plt Count 58 L, MPV TNP, Immature Gran % (Auto) 0.500, Neut % (Auto) 82.0 H, Lymph % (Auto) 9.3 L, Weber % (Auto) 7.9, Eos % (Auto) 0.3, Baso % (Auto) 0.0, Absolute Neuts (auto) 3.0, Absolute Lymphs (auto) 0.34 L, Nucleated RBC % 0.8, Differential Comment SCANNED, Diff Path Review May foll, Platelet Estimate MKD DEC, Hypochromasia 1+, Anisocytosis 1+, Microcytosis 1+, Tear Drop Cells RARE, Stomatocytes RARE 12/16/19 06:30: Sodium 141, Potassium 4.4, Chloride 110 H, Carbon Dioxide 28.0, Anion Gap 3 L, BUN 27 H, Creatinine 1.06, Estim Creat Clear Calc 61.01, Est GFR (MDRD) Af Amer 86, Est GFR (MDRD) Non-Af 71, BUN/Creatinine Ratio 25.5 H, Glucose 85, Calcium 8.3 L, Magnesium 2.6, Triglycerides 78, Cholesterol 59, LDL Cholesterol 20, VLDL Cholesterol 16, HDL Cholesterol 23 L, TSH 4.79 H 12/16/19 06:30: Iron 20 L, Ferritin 7 L Current Medications Acetaminophen (Tylenol) 650 mg PO Q6H PRN PRN PRN Reason: Pain Score 1-10/Temp > 100.7 F Albuterol Sulfate (Ventolin Aerosols) 2.5 mg INHALATION Q2H PRN PRN PRN Reason: SHORTNESS OF BREATH Albuterol/Ipratropium (Duoneb) 3 ml INHALATION Q4H.RT [facility] Last Admin: 12/16/19 07:29 Dose: 3 ml Documented by: Benzonatate (Tessalon Perle) 200 mg PO TID PRN PRN PRN Reason: COUGH Carvedilol (Coreg) 6.25 mg PO BID [facility] Last Admin: 12/15/19 23:00 Dose: 6.25 mg Documented by: Cholecalciferol (Vitamin D (25mcg)) 1,000 unit PO DAILY CHRISTINA Furosemide (Lasix) 20 mg IV X1 PRN PRN Reason: between transfusion Glucagon () 1 mg IM .X1 PRN PRN Reason: Hypoglycemia Sodium Chloride () 250 mls @ 15 mls/hr IV .[id number] PRN PRN Reason: Saline Flush Sodium Chloride () 250 mls @ 15 mls/hr IV .[id number] PRN PRN Reason: Additional IVPB Infusion Dextrose (Dextrose 10%-Water) 250 mls @ 999 mls/hr IV .Q16M PRN; Protocol PRN Reason: HYPOGLYCEMIA Pantoprazole Sodium 40 mg/ (Sodium Chloride) 110 mls @ 330 mls/hr IV Q12 [facility]INA Nitroglycerin (Nitrostat) 0.4 mg SUBLINGUAL Q5M PRN PRN Reason: CARDIAC/CHEST PAIN Nutritional Formula (Lactose Free) (Ensure Enlive) 120 ml PO 4X/DAY [facility] Last Admin: 12/16/19 01:44 Dose: Not Given Documented by: Ondansetron HCl (Zofran) 4 mg IV Q8H PRN PRN PRN Reason: NAUSEA/VOMITING Oxycodone HCl (Oxyir) 5 mg PO Q4H PRN PRN PRN Reason: Pain Score 4-5/10 Polyethylene Glycol (Miralax) 17 gm PO DAILY [facility] Pravastatin Sodium (Pravachol) 40 mg PO QHS [facility] Last Admin: 12/16/19 08:15 Dose: 10 mg Documented by: Prochlorperazine Edisylate (Compazine Iv) 5 mg IV Q4H PRN PRN PRN Reason: Breakthrough Nausea/Vomiting Psyllium Hydrophilic Mucilloid (Metamucil) 1 packet PO DAILY PRN PRN PRN Reason: Constipation Senna/Docusate Sodium (Senokot-S, Yahaira-Colace) 2 tablet PO BID PRN PRN Reason: Constipation Sodium Chloride () 10 - 40 ml IV UD PRN PRN Reason: SALINE FLUSH Assessment/Plan All Active Problems (Last Reviewed 12/15/19 @ 13:40 by Paty Gallego) COPD (chronic obstructive pulmonary disease) (Acute) Prostate cancer (Acute) CHF (congestive heart failure) (Acute) CAD (coronary artery disease) (Acute) Hx of CABG (Resolved) Pacemaker (Acute) Enlarged lymph nodes (Acute) custodial current use of anticoagulant (Acute) Presence of automatic implantable cardioverter-defibrillator (Acute) Malignant neoplasm of unspecified part of unspecified bronchus or lung (Acute) Immune thrombocytopenic purpura (Acute) Essential (primary) hypertension (Acute) Atherosclerotic heart disease of [place] coronary artery without angina pectoris (Acute) Hyperlipidemia (Acute) H/O hernia repair (Resolved) History of basal cell cancer (Acute) History of [place] (myocardial infarction) (Acute) Cataract (Acute) BPH loc w/o ur obs/LUTS (Acute) Esophageal reflux (Acute) Osteoarthrosis (Acute) History of cardiac cath (Resolved) port placement (Acute) s/p intrajugular port placement (Resolved) History of removal of Port-a-Cath (Resolved ~09/2018) Chemotherapy management, encounter for (Resolved) Encounter for insertion of venous access port (Resolved) 79-year-old male with anemia 1. Patient has known lung cancer was not able to have chemotherapy due to his thrombocytopenia. The patient appears pancytopenic with a low white blood cell count as well as a low hemoglobin and platelet count. I am unsure if he is p ancytopenic due to his treatments or his cancer but he has never had an upper scope and his last lower scope was over 10 years ago. He was severely anemic and given 2 units of blood. He is still at a hemoglobin of 6.7 and will be receiving more blood. I discussed EGD and colonoscopy with him. I discussed if he would pursue any surgical management. He is still deciding if he would like the scopes. I asked him to decide and let me know and I could schedule him for an EGD and colonoscopy tomorrow if he would like to proceed to rule out malignancy. If he does not want an immediate scope it can be performed as an outpatient as he is not acutely losing blood. He has no gross blood per stool or black tarry stools. Emil Perry MD Pager: [facility] [address] [place] [address], [address] [place] [address] Office:
[2019-12-16 09:48] LABS: Pathologist Review Reviewed
[2019-12-16] MEDS: Polyethylene Glycol 3350 17 GM PACKET PO (11:25)
[2019-12-16] MEDS: Carvedilol 6.25 MG Tablet PO ×2 (11:26→22:02)
--- NOTE | 2019-12-16 13:02 | PN_ITS ---
Progress Note Patient decided to proceed with endoscopy. We will plan EGD and colonoscopy for tomorrow we will order bowel prep for today. Emil Perry MD Pager: [facility] [address] [place] [address] [address] [place] [address] Office:
--- NOTE | 2019-12-16 13:02 | PCM.PN.BLA ---
Progress Note Patient decided to proceed with endoscopy. We will plan EGD and colonoscopy for tomorrow we will order bowel prep for today. Emil Perry MD Pager: [facility] [address] [place] [address] [address] [place] [address] Office:
--- NOTE | 2019-12-16 13:58 | CASEMGMT ---
RN CM Assessment Note Presentation: COPD Intro role of CM and purpose of RN CM assessment to patient and his in room. Pt is awake, alert and able to participate in assessment. Demographics, PCP and Pharmacy verified. Per pt and , pt is independent with ambulation with rollator or walker. does assist with care needs. Currently no new care needs identified. feels they are managing at home. Discussed RN CM will follow and review PT/OT notes and discuss any possible DC needs with them. PCP: Dr. Refugio Hernandez. Specialists: Dr Pacheco, cardiology; Dr. Perry, Surgery Preferred Pharmacy: [facility] Insurance: [facility] Prescription Benefit: yes LNOK : Nadege Gallego Living Arrangements: 2 story Home with first floor set up. assists with bathing, dressing. Transportation: drives DME: rollator, walker, shower chair. Oxygen-not sure which company. Requested check and let CM know. Has concentrator, portable tanks and pt states he does wear in at home. HHC/SNF: HHC in past, not sure which agency. No SNF. Patient DC goals: Home DC PLAN: anticipate home on discharge. PT/OT pending. RN CM advised to contact cm for any concerns/needs that may arise. Lenny DAVENPORT RN ACM
[2019-12-16] MEDS: Bisacodyl 5 MG Tablet 20 MG PO (15:37)
[2019-12-16] MEDS: Polyethylene Glycol 3350 BOWEL PREP PO (15:49)
--- NOTE | 2019-12-16 15:57 | CHAPLAIN ---
Type of Pastoral Visit _x__ Initial Visit ___ Follow-up Visit ___ On-call Visit ___ General Patient Visit ___ Spiritual Assessment ___ Family Conference ___ Bereavement ___ Rapid Response ___ Code Blue ___ Other (describe below) Pastoral Care Referral From _x__ Patient ___ Family ___ Nurse ___ Physician ___ Aviation Consultant ___ Network Support Analyst ___ Other (describe below) Sacrament/Intervention _x__ Active listening ___ Anointing ___ Adventist ___ Bereavement ___ Communion _x__ Megan exploration ___ ___ Life review _x__ Prayer ___ Reconciliation ___ Sacrament of Sick _x__ Supportive presence ___ Wedding ___ Other (describe below) Pastoral Comments
[2019-12-16 16:37] LABS: Hemoglobin 8.3 g/dL (13.0-16.5)
[2019-12-16] MEDS: 0.9% Saline Lock 10 ML Syringe IV (18:08)
[2019-12-16] MEDS: Pravastatin 40 MG Tablet PO (22:03)
[2019-12-17] VITALS (17 sets, daily range): BP systolic 100–132; BP diastolic 51–70; PULSE 70–94; RESP 14–23; TEMP 36.6–37.1; O2SAT 95–100
--- NOTE | 2019-12-17 06:29 | NURSING ---
Pt awake, offered toileting and refused. Pt transported to [facility] by bed w/portable oxygen tank at 3L [place].
--- NOTE | 2019-12-17 06:47 | PN.SURG_ITS ---
Subjective: Patient had successful bowel prep overnight - Physical Exam Vitals/I&O's: Vital Signs Temp Pulse Resp BP Pulse Ox 98 F 90 22 H 100/51 L 100 12/17/19 04:00 12/17/19 06:00 12/17/19 06:00 12/17/19 06:00 12/17/19 06:00 Oxygen Flow Rate (L/min) 4 Oxygen Delivery Method Nasal Cannula Weight: 178 lb 5.663 oz Body Mass Index (BMI) 24.2 Intake and Output for Last 24 Hours 12/15/19 12/16/19 12/17/19 23:59 23:59 23:59 Intake Total 233.33 / 833.33 3035 / 3535 950 / 950 Output Total 200 / 450 1900 / 2800 1999 / 1999 Balance 33.33 / 383.33 1135 / 735 -1050 / -1050 General: Alert, Oriented x3 Lungs: Normal air movement Cardiovascular: Regular rate, Regular Rhythm Abdomen: Soft, Non Tender, Non-Distended Microbiology Past 72 Hours 12/16/19 Unknown Stool Stool Occult Blood (BARBARA) - Final Occult Blood Positive 12/15/19 20:40 Sputum, Expectorated/Coughed Gram Stain - Final 12/15/19 20:40 Sputum, Expectorated/Coughed Respiratory Culture - Preliminary Gram negative mayra 12/15/19 19:30 Mucosa - Nasopharyngeal Respiratory Panel (PCR) - Final 12/16/19 01:00 Urine, Clean Catch Streptococcus pneumoniae Antigen (M - Final 12/16/19 01:00 Urine, Clean Catch Legionella Antigen - Final Laboratory Results 12/15/19 15:35: Diff Path Review Reviewed 12/15/19 16:30: Crossmatch See Detail 12/15/19 16:30: Crossmatch See Detail 12/16/19 06:30: WBC 3.7 L, RBC 3.55 L, Hgb 6.7 L, Hct 25.7 L, MCV 72.4 L D, MCH 18.9 L, MCHC 26.1 L D, RDW Std Deviation 61.5 H, RDW Coeff of Khadijah 23.8 H, Plt Count 58 L, MPV TNP, Immature Gran % (Auto) 0.500, Neut % (Auto) 82.0 H, Lymph % (Auto) 9.3 L, Parker % (Auto) 7.9, Eos % (Auto) 0.3, Baso % (Auto) 0.0, Absolute Neuts (auto) 3.0, Absolute Lymphs (auto) 0.34 L, Nucleated RBC % 0.8, Differential Comment SCANNED, Diff Path Review May foll, Platelet Estimate MKD DEC, Hypochromasia 1+, Anisocytosis 1+, Microcytosis 1+, Tear Drop Cells RARE, Stomatocytes RARE 12/16/19 06:30: Sodium 141, Potassium 4.4, Chloride 110 H, Carbon Dioxide 28.0, Anion Gap 3 L, BUN 27 H, Creatinine 1.06, Estim Creat Clear Calc 61.01, Est GFR (MDRD) Af Amer 86, Est GFR (MDRD) Non-Af 71, BUN/Creatinine Ratio 25.5 H, Gluco se 85, Calcium 8.3 L, Magnesium 2.6, Triglycerides 78, Cholesterol 59, LDL Cholesterol 20, VLDL Cholesterol 16, HDL Cholesterol 23 L, TSH 4.79 H 12/16/19 06:30: Iron 20 L, Ferritin 7 L 12/16/19 16:00: Hgb 8.3 L, Hct 31.0 L Current Medications Acetaminophen (Tylenol) 650 mg PO Q6H PRN PRN PRN Reason: Pain Score 1-10/Temp > 100.7 F Albuterol Sulfate (Ventolin Aerosols) 2.5 mg INHALATION Q2H PRN PRN PRN Reason: SHORTNESS OF BREATH Albuterol/Ipratropium (Duoneb) 3 ml INHALATION Q4H.RT [facility] Last Admin: 12/17/19 00:05 Dose: Not Given Documented by: Benzonatate (Tessalon Perle) 200 mg PO TID PRN PRN PRN Reason: COUGH Carvedilol (Coreg) 6.25 mg PO BID [facility] Last Admin: 12/16/19 22:02 Dose: 6.25 mg Documented by: Cholecalciferol (Vitamin D (25mcg)) 1,000 unit PO DAILY [facility] Last Admin: 12/16/19 11:26 Dose: 1,000 unit Documented by: Furosemide (Lasix) 20 mg IV X1 PRN PRN Reason: between transfusion Glucagon () 1 mg IM .X1 PRN PRN Reason: Hypoglycemia Sodium Chloride () 250 mls @ 15 mls/hr IV .[id number] PRN PRN Reason: Saline Flush Sodium Chloride () 250 mls @ 15 mls/hr IV .[id number] PRN PRN Reason: Additional IVPB Infusion Dextrose (Dextrose 10%-Water) 250 mls @ 999 mls/hr IV .Q16M PRN; Protocol PRN Reason: HYPOGLYCEMIA Pantoprazole Sodium 40 mg/ (Sodium Chloride) 110 mls @ 330 mls/hr IV Q12 [facility] Last Infusion: 12/16/19 22:25 Dose: Infused Documented by: Nitroglycerin (Nitrostat) 0.4 mg SUBLINGUAL Q5M PRN PRN Reason: CARDIAC/CHEST PAIN Nutritional Formula (Lactose Free) (Ensure Enlive) 120 ml PO 4X/DAY [facility] Last Admin: 12/16/19 22:01 Dose: 120 ml Documented by: Ondansetron HCl (Zofran) 4 mg IV Q8H PRN PRN PRN Reason: NAUSEA/VOMITING Oxycodone HCl (Oxyir) 5 mg PO Q4H PRN PRN PRN Reason: Pain Score 4-5/10 Polyethylene Glycol (Miralax) 17 gm PO DAILY [facility] Last Admin: 12/16/19 11:25 Dose: 17 gm Documented by: Pravastatin Sodium (Pravachol) 40 mg PO QHS [facility] Last Admin: 12/16/19 22:03 Dose: 40 mg Documented by: [facility] () [facility] Last Admin: 12/16/19 08:15 Dose: 10 mg Documented by: Prochlorperazine Edisylate (Compazine Iv) 5 mg IV Q4H PRN PRN PRN Reason: Breakthrough Nausea/Vomiting Psyllium Hydrophilic Mucilloid (Metamucil) 1 packet PO DAILY PRN PRN PRN Reason: Constipation Senna/Docusate Sodium (Senokot-S, Yahaira-Colace) 2 tablet PO BID PRN PRN Reason: Constipation Sodium Chloride () 10 - 40 ml IV UD PRN PRN Reason: SALINE FLUSH Last Admin: 12/16/19 18:08 Dose: 10 ml Documented by: Medical Necessity - Tobacco Use Smoking Status: Former smoker Assessment/Plan All Active Problems (Last Reviewed 12/15/19 @ 13:40 by Paty Glalego) COPD (chronic obstructive pulmonary disease) (Acute) Prostate cancer (Acute) Hx of CABG (Resolved) Enlarged lymph nodes (Acute) jail current use of anticoagulant (Acute) Presence of automatic implantable cardioverter-defibrillator (Acute) Malignant neoplasm of unspecified part of unspecified bronchus or lung (Acute) Immune thrombocytopenic purpura (Acute) Essential (primary) hypertension (Acute) Atherosclerotic heart disease of [place] coronary artery without angina pectoris (Acute) H/O hernia repair (Resolved) History of basal cell cancer (Acute) History of [place] (myocardial infarction) (Acute) Cataract (Acute) BPH loc w/o ur obs/LUTS (Acute) Esophageal reflux (Acute) Osteoarthrosis (Acute) History of cardiac cath (Resolved) port placement (Acute) s/p intrajugular port placement (Resolved) History of removal of Port-a-Cath (Resolved ~09/2018) Chemotherapy management, encounter for (Resolved) Encounter for insertion of venous access port (Resolved) 79-year-old male with severe anemia and positive fecal occult blood Plan for EGD and colonoscopy this morning I explained endoscopy in detail to the patient. I explained the risks including but not limited to stroke or heart attack with anesthesia, perforation of the GI tract, bleeding, infection. I explained that any of these could necessitate further emergency surgery. The patient understands and all questions were answered sufficiently. The patient wishes to proceed with procedure. Emil Perry MD Pager: [facility] [address] [place] [address], [address] [place] [address] Office:
--- NOTE | 2019-12-17 07:00 | EGD_PTH ---
PATIENT: YURI CÁRDENAS LOC: [facility] U#:[id number] AGE/SX: 79/M ROOM: [facility] RE12/15/[address]: Dr. Seema Blanton MD : 1940 BED: 1 DIS: 12/20/2019 SPEC #: [id number] RECD: 12/17/19 10:55 STATUS: DILLAN REQ #: [id number] [place]: 12/17/19 07:[address]: Emil Perry DEPT: SURGICAL PATHOLOGY RECD BY: Clement Yeh ENTERED: 12/17/19 11:34 SP TYPE: EGD BIOPSY OTHR DR: DO Dr. Aleksandr Locke MD Dr. Nagapradee Nagajothi, MD Dr. Prakash Chand, MD Tissues: Esophageal mucous membrane Procedures: Special Stain Group I Surgery Specimen Level IV GMS Stain (control) Comments: @ Ordering doctor for SUIV edited from to @ by DANIEL at 12/17/19 1134 @ Submitting doctor edited from to @ by DANIEL at 12/17/19 1134 HEADER OPERATION: Colonoscopy, EGD ([facility]) PRE-OP DIAGNOSIS: Anemia, positive fecal occult blood TISSUE SUBMITTED: Distal esophagus biopsy, rule out Cheryl MICROSCOPIC DIAGNOSIS Distal esophagus, biopsy: Fragments of benign gastric mucosa. Focal acute inflammation Negative for fungal organisms. See comment. AM:chaparrita 12/20/19 COMMENT GMS stain with matched control supports the above diagnosis. MICROSCOPIC DESCRIPTION Slides are reviewed. GROSS DESCRIPTION Received in fixative is one container labeled with the patient's name and designated distal esophagus biopsy. The specimen consists of two irregular fragments of light soto soft tissue that in aggregate measure 0.7 x 0.5 x 0.1 cm. The specimen is totally submitted in one cassette. / AM:chaparrita 12/17/19 TC:2 CPT: 59943, 69751
--- NOTE | 2019-12-17 07:05 | PCM.PN.INT ---
Subjective: The patient was seen and examined at the bedside this morning. Events from the last 24 hours have been reviewed. The patient is currently afebrile, hemodynamically stable and maintaining appropriate oxygen saturations on 3 L/min via nasal cannula. The patient has now been transfused a total of 3 units of packed red blood cells. His hemoglobin yesterday afternoon was noted to be 8.3 g/dL. The patient is going to be taken this morning for endoscopy. Objective: The patient's most recent lab work, culture data and imaging studies have all been personally reviewed. Stool for occult blood was positive. Respiratory viral panel was negative. Sputum Gram stain was positive for gram-negative mayra. Surface echocardiogram revealed a moderately dilated LV with an ejection fraction of 25 to 30%. There was severe global hypokinesis of the LV with moderate global RV systolic dysfunction. Right ventricular systolic pressure was estimated to be 40 mmHg. General: Alert, Cooperative, No apparent distress HEENT: Atraumatic, Normocephalic Oral: No Gingival or Mucosal Lesions/ Ulcerations Neck: Supple, No Nodes, Trachea Midline Lungs: No wheeze, No rales, Diminished, Rhonchi Cardiovascular: Regular rate, Regular Rhythm, Normal S1, Normal S2 Abdomen: Bowel Sounds Present, Soft, Non Tender Extremities: No clubbing, No cyanosis, No edema Skin: No breakdown Musculoskeletal: No Tenderness to Palpation of Joints or Extremities, No Muscle Wasting Lymphatic: No Cervical, Supraclavicular, or Inguinal Adenopathy Neurological: Cranial nerves II-XII grossly intact, Neuro grossly intact Psych/Mental Status: Alert and oriented to time, place, person, mood and affect Vital Signs Temp Pulse Resp BP Pulse Ox 98 F 90 22 H 100/51 L 100 12/17/19 04:00 12/17/19 06:00 12/17/19 06:00 12/17/19 06:00 12/17/19 06:00 Oxygen Flow Rate (L/min) 4 Oxygen Delivery Method Nasal Cannula Weight: 178 lb 5.663 oz Body Mass Index (BMI) 24.2 Intake and Output for Last 24 Hours 12/15/19 12/16/19 12/17/19 23:59 23:59 23:59 Intake Total 233.33 / 833.33 3035 / 3535 950 / 950 Output Total 200 / 450 1900 / 2800 1999 / 1999 Balance 33.33 / 383.33 1135 / 735 -1050 / -1050 Labs (Last 48 Hours) 12/15/19 12/15/19 12/15/19 15:35 15:35 15:35 WBC 6.2 RBC 3.23 L Hgb 5.3 L* Hct 22.0 L MCV 68.1 L MCH 16.4 L MCHC 24.1 L RDW Std Deviation 52.0 H RDW Coeff of Hkadijah 22.0 H Plt Count 68 L MPV TNP Immature Gran % (Auto) 0.500 Neut % (Auto) 88.7 H Lymph % (Auto) 6.2 L Franklin % (Auto) 3.1 Eos % (Auto) 1.5 Baso % (Auto) 0.0 Absolute Neuts (auto) 5.5 Absolute Lymphs (auto) 0.38 L Nucleated RBC % 0 Differential Comment SCANNED Diff Path Review Reviewed Platelet Estimate Hypochromasia Anisocytosis Microcytosis Tear Drop Cells Stomatocytes Sodium 146 H Potassium 3.8 Chloride 117 H Carbon Dioxide 23.0 Anion Gap 6 BUN 25 H Creatinine 0.88 Estim Creat Clear Calc 73.48 Est GFR (MDRD) Af Amer 107 Est GFR (MDRD) Non-Af 89 BUN/Creatinine Ratio 28.5 H Glucose 82 Lactic Acid Calcium 6.8 L Magnesium Iron Ferritin Total Bilirubin 0.70 AST 13 L ALT 13 L Alkaline Phosphatase 48 Troponin I 0.026 B-Natriuretic Peptide 333.3 H Total Protein 5.0 L Albumin 2.5 L Globulin 2.5 Albumin/Globulin Ratio 1.0 Triglycerides Cholesterol LDL Cholesterol VLDL Cholesterol HDL Cholesterol TSH Urine Color Urine Clarity Urine pH Ur Specific Boring Urine Protein Urine Glucose (UA) Urine Ketones Urine Occult Blood Urine Nitrite Urine Bilirubin Urine Urobilinogen Ur Leukocyte Esterase Urine RBC Urine WBC Ur Squamous Epith Cells Urine Bacteria Urine Mucus MRSA (PCR) Blood Type Antibody Screen Crossmatch 12/15/19 12/15/19 12/15/19 16:30 16:30 18:00 WBC RBC Hgb Hct MCV MCH MCHC RDW Std Deviation RDW Coeff of Khadijah Plt Count MPV Immature Gran % (Auto) Neut % (Auto) Lymph % (Auto) Franklin % (Auto) Eos % (Auto) Baso % (Auto) Absolute Neuts (auto) Absolute Lymphs (auto) Nucleated RBC % Differential Comment Diff Path Review Platelet Estimate Hypochromasia Anisocytosis Microcytosis Tear Drop Cells Stomatocytes Sodium Potassium Chloride Carbon Dioxide Anion Gap BUN Creatinine Estim Creat Clear Calc Est GFR (MDRD) Af Amer Est GFR (MDRD) Non-Af BUN/Creatinine Ratio Glucose Lactic Acid 2.5 H* Calcium Magnesium Iron Ferritin Total Bilirubin AST ALT Alkaline Phosphatase Troponin I B-Natriuretic Peptide Total Protein Albumin Globulin Albumin/Globulin Ratio Triglycerides Cholesterol LDL Cholesterol VLDL Cholesterol HDL Cholesterol TSH Urine Color Urine Clarity Urine pH Ur Specific Boring Urine Protein Urine Glucose (UA) Urine Ketones Urine Occult Blood Urine Nitrite Urine Bilirubin Urine Urobilinogen Ur Leukocyte Esterase Urine RBC Urine WBC Ur Squamous Epith Cells Urine Bacteria Urine Mucus MRSA (PCR) Blood Type O POSITIVE Antibody Screen NEGATIVE Crossmatch See Detail See Detail 12/15/19 12/15/19 12/15/19 18:05 18:05 20:31 WBC RBC Hgb Hct MCV MCH MCHC RDW Std Deviation RDW Coeff of Khadijah Plt Count MPV Immature Gran % (Auto) Neut % (Auto) Lymph % (Auto) Franklin % (Auto) Eos % (Auto) Baso % (Auto) Absolute Neuts (auto) Absolute Lymphs (auto) Nucleated RBC % Differential Comment Diff Path Review Platelet Estimate Hypochromasia Anisocytosis Microcytosis Tear Drop Cells Stomatocytes Sodium Potassium Chloride Carbon Dioxide Anion Gap BUN Creatinine Estim Creat Clear Calc Est GFR (MDRD) Af Amer Est GFR (MDRD) Non-Af BUN/Creatinine Ratio Glucose Lactic Acid Calcium Magnesium Iron Ferritin Total Bilirubin AST ALT Alkaline Phosphatase Troponin I 0.022 0.018 B-Natriuretic Peptide Total Protein Albumin Globulin Albumin/Globulin Ratio Triglycerides Cholesterol LDL Cholesterol VLDL Cholesterol HDL Cholesterol TSH Urine Color Urine Clarity Urine pH Ur Specific Boring Urine Protein Urine Glucose (UA) Urine Ketones Urine Occult Blood Urine Nitrite Urine Bilirubin Urine Urobilinogen Ur Leukocyte Esterase Urine RBC Urine WBC Ur Squamous Epith Cells Urine Bacteria Urine Mucus MRSA (PCR) Negative Blood Type Antibody Screen Crossmatch 12/16/19 12/16/19 12/16/19 01:00 01:10 06:30 WBC 3.7 L RBC 3.55 L Hgb 6.7 L Hct 25.7 L MCV 72.4 L D MCH 18.9 L MCHC 26.1 L D RDW Std Deviation 61.5 H RDW Coeff of Khadijah 23.8 H Plt Count 58 L MPV TNP Immature Gran % (Auto) 0.500 Neut % (Auto) 82.0 H Lymph % (Auto) 9.3 L Franklin % (Auto) 7.9 Eos % (Auto) 0.3 Baso % (Auto) 0.0 Absolute Neuts (auto) 3.0 Absolute Lymphs (auto) 0.34 L Nucleated RBC % 0.8 Differential Comment SCANNED Diff Path Review May foll Platelet Estimate MKD DEC Hypochromasia 1+ Anisocytosis 1+ Microcytosis 1+ Tear Drop Cells RARE Stomatocytes RARE Sodium Potassium Chloride Carbon Dioxide Anion Gap BUN Creatinine Estim Creat Clear Calc Est GFR (MDRD) Af Amer Est GFR (MDRD) Non-Af BUN/Creatinine Ratio Glucose Lactic Acid 1.7 Calcium Magnesium Iron Ferritin Total Bilirubin AST ALT Alkaline Phosphatase Troponin I B-Natriuretic Peptide Total Protein Albumin Globulin Albumin/Globulin Ratio Triglycerides Cholesterol LDL Cholesterol VLDL Cholesterol HDL Cholesterol TSH Urine Color Yellow Urine Clarity Clear Urine pH 6.0 Ur Specific Boring 1.015 Urine Protein 15 H Urine Glucose (UA) Normal Urine Ketones Negative Urine Occult Blood Negative Urine Nitrite Negative Urine Bilirubin Negative Urine Urobilinogen Normal Ur Leukocyte Esterase Negative Urine RBC 0 SEEN Urine WBC 0 SEEN Ur Squamous Epith Cells 0 SEEN Urine Bacteria 0 SEEN Urine Mucus 0 SEEN MRSA (PCR) Blood Type Antibody Screen Crossmatch 12/16/19 12/16/19 12/16/19 06:30 06:30 16:00 WBC RBC Hgb 8.3 L Hct 31.0 L MCV MCH MCHC RDW Std Deviation RDW Coeff of Khadijah Plt Count MPV Immature Gran % (Auto) Neut % (Auto) Lymph % (Auto) Franklin % (Auto) Eos % (Auto) Baso % (Auto) Absolute Neuts (auto) Absolute Lymphs (auto) Nucleated RBC % Differential Comment Diff Path Review Platelet Estimate Hypochromasia Anisocytosis Microcytosis Tear Drop Cells Stomatocytes Sodium 141 Potassium 4.4 Chloride 110 H Carbon Dioxide 28.0 Anion Gap 3 L BUN 27 H Creatinine 1.06 Estim Creat Clear Calc 61.01 Est GFR (MDRD) Af Amer 86 Est GFR (MDRD) Non-Af 71 BUN/Creatinine Ratio 25.5 H Glucose 85 Lactic Acid Calcium 8.3 L Magnesium 2.6 Iron 20 L Ferritin 7 L Total Bilirubin AST ALT Alkaline Phosphatase Troponin I B-Natriuretic Peptide Total Protein Albumin Globulin Albumin/Globulin Ratio Triglycerides 78 Cholesterol 59 LDL Cholesterol 20 VLDL Cholesterol 16 HDL Cholesterol 23 L TSH 4.79 H Urine Color Urine Clarity Urine pH Ur Specific Boring Urine Protein Urine Glucose (UA) Urine Ketones Urine Occult Blood Urine Nitrite Urine Bilirubin Urine Urobilinogen Ur Leukocyte Esterase Urine RBC Urine WBC Ur Squamous Epith Cells Urine Bacteria Urine Mucus MRSA (PCR) Blood Type Antibody Screen Crossmatch Microbiology 12/16/19 Unknown Stool Stool Occult Blood (BARBARA) - Final Occult Blood Positive 12/15/19 20:40 Sputum, Expectorated/Coughed Gram Stain - Final 12/15/19 20:40 Sputum, Expectorated/Coughed Respiratory Culture - Preliminary Gram negative mayra 12/15/19 19:30 Mucosa - Nasopharyngeal Respiratory Panel (PCR) - Final 12/16/19 01:00 Urine, Clean Catch Streptococcus pneumoniae Antigen (M - Final 12/16/19 01:00 Urine, Clean Catch Legionella Antigen - Final Clinical Impression(s) from Imaging Studies Chest X-Ray 12/15/19 15:45 IMPRESSION: Stable examination with increased markings in the right upper lobe and right perihilar region suggestive of postradiation fibrosis. Electronically Signed: Dangelo Blevins, at 16:02 EDT , Service support , Medical Necessity - Tobacco Use Smoking Status: Former smoker Assessment/Plan All Active Problems (Last Reviewed 12/15/19 @ 13:40 by Paty Gallego) COPD (chronic obstructive pulmonary disease) (Acute) Prostate cancer (Acute) Hx of CABG (Resolved) Enlarged lymph nodes (Acute) alf current use of anticoagulant (Acute) Presence of automatic implantable cardioverter-defibrillator (Acute) Malignant neoplasm of unspecified part of unspecified bronchus or lung (Acute) Immune thrombocytopenic purpura (Acute) Essential (primary) hypertension (Acute) Atherosclerotic heart disease of [place] coronary artery without angina pectoris (Acute) H/O hernia repair (Resolved) History of basal cell cancer (Acute) History of MS (myocardial infarction) (Acute) Cataract (Acute) BPH loc w/o ur obs/LUTS (Acute) Esophageal reflux (Acute) Osteoarthrosis (Acute) History of cardiac cath (Resolved) port placement (Acute) s/p intrajugular port placement (Resolved) History of removal of Port-a-Cath (Resolved ~09/2018) Chemotherapy management, encounter for (Resolved) Encounter for insertion of venous access port (Resolved) RECOMMENDATIONS: 1. Recheck CBC this morning. 2. Continue PPI therapy. 3. Diflucan for esophageal candidiasis. 4. Continue bronchodilators. Start ceftriaxone, given gram-negative's identified on sputum culture. 5. Wean supplemental oxygen as tolerated. 6. Encourage incentive spirometer use and mobilize patient as tolerated. 7. The patient is medically stable for transfer out of the intensive care unit. IMPRESSIONS: 1. Symptomatic anemia/chronic thrombocytopenia (immune thrombocytopenic purpura) The patient was admitted to the hospital with symptomatic anemia and a hemoglobin of 5.3 g/dL. There were no overt signs of blood loss at this time. 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 The patient has been transfused 3 units of packed red blood cells and blood counts remained stable. He will be continued on PPI therapy. 2. 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 Villareal of oncology. 3. History of COPD/emphysema/chronic hypoxemic respiratory failure The patient will be continued on scheduled bronchodilators and supplemental oxygen. Antibiotics were started this morning due to gram-negative rods identified on sputum culture. Continue baseline prednisone dose. 4. History of coronary artery disease status post CABG/chronic systolic heart failure Complicates care, management, recovery and prognosis. Cardiology is currently following to assist with medical management. This note was generated with [employer] dictation software. It may contain incorrect words, spelling, and punctuation that were not noted in checking the note before signing. Inpatient E&M: 71302 [facility] L3
--- NOTE | 2019-12-17 07:36 | OP.EGD_ITS ---
Patient Name: Beck Gallego Procedure Date: 12/17/2019 6:21 AM Date of : 1940 Age: 79 Procedure: Upper GI endoscopy Indications: Acute post hemorrhagic anemia Providers: Emil Perry MD Medicines: Monitored Anesthesia Care Patient Profile: This is an 79 year old male. Refer to note in patient chart for documentation of history and physical. Complications: No immediate complications. Estimated blood loss: Minimal. Procedure: Pre-Anesthesia Assessment: - Prior to the procedure, a History and Physical was performed, and patient medications and allergies were reviewed. The patient's tolerance of previous anesthesia was also reviewed. The risks and benefits of the procedure and the sedation options and risks were discussed with the patient. All questions were answered, and informed consent was obtained. Prior Anticoagulants: The patient has taken no previous anticoagulant or antiplatelet agents. After reviewing the risks and benefits, the patient was deemed in satisfactory condition to undergo the procedure. After obtaining informed consent, the endoscope was passed under direct vision. Throughout the procedure, the patient's blood pressure, pulse, and oxygen saturations were monitored continuously. The gastroscope was introduced through the mouth, and advanced to the third part of duodenum. The upper GI endoscopy was accomplished without difficulty. The patient tolerated the procedure well. Scope In: 7:08:02 AM Scope Out: 7:11:05 AM Total Procedure Duration Time 0 hours 3 minutes 3 seconds Findings: Diffuse, white plaques were found in the entire esophagus. Biopsies were taken with a cold forceps for histology. The examined duodenum was normal. The stomach was normal. Impression: - Esophageal plaques were found, suspicious for candidiasis. Biopsied. - Normal examined duodenum. - Normal stomach. Recommendation: - Resume previous diet. - Continue present medications. Procedure Code(s): --- Professional --- 36842, Esophagogastroduodenoscopy, flexible, transoral; with biopsy, single or multiple Diagnosis Code(s): --- Professional --- K22.9, Disease of esophagus, unspecified D62, Acute posthemorrhagic anemia CPT copyright 2017 [employer]. All rights reserved. The codes documented in this report are preliminary and upon popped corn oven attendant review may be revised to meet current compliance requirements. Emil Perry MD 12/17/2019 7:35:36 AM This report has been signed electronically. Number of Addenda: 0 Note Initiated On: 12/17/2019 6:21 AM
--- NOTE | 2019-12-17 07:36 | OP.CCLET_ITS ---
12/17/2019 Aleksandr Hernandez Re : Upper GI endoscopy procedure for Beck Hernandez This procedure was performed on Tuesday, December 17, 2019. My impressions and recommendations are as follows: Impressions : - Esophageal plaques were found, suspicious for candidiasis. Biopsied. - Normal examined duodenum. - Normal stomach. Recommendations : - Resume previous diet. - Continue present medications. My findings are described in the full procedure note, which is enclosed. If I can be of further assistance, please feel free to contact me at Doctor phone number(s): , Work: . Sincerely, Emil Perry MD 12/17/2019 7:35:36 AM This report has been signed electronically.
--- NOTE | 2019-12-17 07:38 | OP.COLON_ITS ---
Patient Name: Beck Gallego Procedure Date: 12/17/2019 7:11 AM Date of : 1940 Age: 79 Procedure: Colonoscopy Indications: Acute post hemorrhagic anemia Providers: Emil Perry MD Medicines: Monitored Anesthesia Care Patient Profile: This is an 79 year old male. Refer to note in patient chart for documentation of history and physical. Last Colonoscopy: 10 years ago. Complications: No immediate complications. Estimated blood loss: Minimal. Procedure: Pre-Anesthesia Assessment: - Prior to the procedure, a History and Physical was performed, and patient medications and allergies were reviewed. The patient's tolerance of previous anesthesia was also reviewed. The risks and benefits of the procedure and the sedation options and risks were discussed with the patient. All questions were answered, and informed consent was obtained. Prior Anticoagulants: The patient has taken no previous anticoagulant or antiplatelet agents. After reviewing the risks and benefits, the patient was deemed in satisfactory condition to undergo the procedure. After I obtained informed consent, the scope was passed under direct vision. Throughout the procedure, the patient's blood pressure, pulse, and oxygen saturations were monitored continuously. The pediatric colonoscope was introduced through the anus and advanced to the cecum, identified by appendiceal orifice and ileocecal valve. The colonoscopy was performed without difficulty. The patient tolerated the procedure well. The quality of the bowel preparation was good. Scope In: 7:14:40 AM Scope Withdrawal Time 0 hours 7 minutes 5 seconds Scope Out: 7:28:32 AM Total Procedure Duration Time 0 hours 13 minutes 52 seconds Findings: One small localized angioectasia without bleeding was found in the cecum. For hemostasis, three hemostatic clips were successfully placed. There was no bleeding at the end of the procedure. The exam was otherwise without abnormality on direct and retroflexion views. Impression: - One non-bleeding colonic angioectasia. Clips were placed. - The examination was otherwise normal on direct and retroflexion views. - No specimens collected. Recommendation: - [facility]. - Resume previous diet. - Continue present medications. - Repeat colonoscopy is not recommended due to current age (66 years or older) for screening purposes. Procedure Code(s): --- Professional --- 58949, Colonoscopy, flexible; with control of bleeding, any method Diagnosis Code(s): --- Professional --- K55.20, Angiodysplasia of colon without hemorrhage D62, Acute posthemorrhagic anemia CPT copyright 2017 [employer]. All rights reserved. The codes documented in this report are preliminary and upon gameroom technician review may be revised to meet current compliance requirements. Emil Perry MD 12/17/2019 7:38:16 AM This report has been signed electronically. Number of Addenda: 0 Note Initiated On: 12/17/2019 7:11 AM
--- NOTE | 2019-12-17 07:38 | OP.CCLET_ITS ---
12/17/2019 Aleksandr Hernandez Re : Colonoscopy procedure for Beck Hernandez This procedure was performed on Tuesday, December 17, 2019. My impressions and recommendations are as follows: Impressions : - One non-bleeding colonic angioectasia. Clips were placed. - The examination was otherwise normal on direct and retroflexion views. - No specimens collected. Recommendations : - Return [facility] to [facility] care. - Resume previous diet. - Continue present medications. - Repeat colonoscopy is not recommended due to current age (66 years or older) for screening purposes. My findings are described in the full procedure note, which is enclosed. If I can be of further assistance, please feel free to contact me at Doctor phone number(s): , Work: . Sincerely, Emil Perry MD 12/17/2019 7:38:16 AM This report has been signed electronically.
--- NOTE | 2019-12-17 07:38 | PCM.PN.BLA ---
Progress Note I performed an EGD and colonoscopy on the patient. The patient had diffuse suspected candidiasis of the entire esophagus. Pictures are in the chart. The patient did not have any ulcers of the stomach or duodenum. No stigmata of bleeding. On colonoscopy the patient had a small AVM in the cecum. This was clipped multiple times to prevent further bleeding but there was no stigmata of bleeding or active bleeding going on during visualization. The rest of the colon was normal with no masses or stigmata of bleeding or new or old blood. There were no masses or polyps. I will put him back on a regular diet and recommend treatment of candidiasis. Emil Perry MD Pager: [facility] [address] [place] [address], [address] [place] [address] Office: [facility] Vital Signs/Narrative: Vital Signs Temp Pulse Resp BP Pulse Ox 12/17/19 06:00 90 22 H 100/51 L 100 12/17/19 05:00 90 20 H 116/68 100 12/17/19 04:00 98 F 92 21 H 122/63 H 100
--- NOTE | 2019-12-17 07:58 | PN_ITS ---
Reason for Visit: Hypotension, severe anemia, anasarca Objective: Patient is still has edema of upper extremities. Lower extremity edema have improved. Afebrile. Patient had EGD and colonoscopy in the morning. Discussed with surgeon but called me to inform about EGD and colonoscopy. Heart rate in 80s/90s ventricular paced heart rhythm Overall shortness of breath is improved. Chest pressure has resolved. Vitals/I&O's: Vital Signs Temp Pulse Resp BP Pulse Ox 98 F 90 22 H 100/51 L 100 12/17/19 04:00 12/17/19 06:00 12/17/19 06:00 12/17/19 06:00 12/17/19 06:00 Oxygen Flow Rate (L/min) 4 Oxygen Delivery Method Nasal Cannula Weight: 178 lb 5.663 oz Body Mass Index (BMI) 24.2 Intake and Output for Last 24 Hours 12/15/19 12/16/19 12/17/19 23:59 23:59 23:59 Intake Total 233.33 / 833.33 3035 / 3535 950 / 950 Output Total 200 / 450 1900 / 2800 1999 / 1999 Balance 33.33 / 383.33 1135 / 735 -1050 / -1050 General: Alert, Oriented x3, Cooperative HEENT: Atraumatic, PERRLA, EOMI, Normocephalic Neck: Supple, No JVD, Negative Carotid Bruits Lungs: Clear to auscultation, No rhonchi, No wheeze, No rales, Diminished Cardiovascular: Normal S1, Normal S2, No murmurs, - - AICD on left subclavicular region. CABG scar. Ventricular paced rhythm Abdomen: Bowel Sounds Present, Soft, Non Tender, Non-Distended Extremities: Capillary Refill Less than 3 Seconds, Edema Skin: No rashes, No breakdown Musculoskeletal: No Tenderness to Palpation of Joints or Extremities, Arthritic Changes Lymphatic: No Cervical, Supraclavicular, or Inguinal Adenopathy Neurological: Cranial nerves II-XII grossly intact, Deep Tendon Reflexes 2+/4 and Symmetrical, Neuro grossly intact Psych/Mental Status: Normal Affect, Appropriate Microbiology Past 72 Hours 12/16/19 Unknown Stool Stool Occult Blood (BARBARA) - Final Occult Blood Positive 12/15/19 20:40 Sputum, Expectorated/Coughed Gram Stain - Final 12/15/19 20:40 Sputum, Expectorated/Coughed Respiratory Culture - Preliminary Gram negative mayra 12/15/19 19:30 Mucosa - Nasopharyngeal Respiratory Panel (PCR) - Final 12/16/19 01:00 Urine, Clean Catch Streptococcus pneumoniae Antigen (M - Final 12/16/19 01:00 Urine, Clean Catch Legionella Antigen - Final Laboratory Results 12/15/19 15:35: Diff Path Review Reviewed 12/15/19 16:30: Crossmatch See Detail 12/15/19 16:30: Crossmatch See Detail 12/16/19 06:30: Iron 20 L, Ferritin 7 L 12/16/19 16:00: Hgb 8.3 L, Hct 31.0 L Current Medications Acetaminophen (Tylenol) 650 mg PO Q6H PRN PRN PRN Reason: Pain Score 1-10/Temp > 100.7 F Albuterol Sulfate (Ventolin Aerosols) 2.5 mg INHALATION Q2H PRN PRN PRN Reason: SHORTNESS OF BREATH Albuterol/Ipratropium (Duoneb) 3 ml INHALATION Q4H.RT [facility] Last Admin: 12/17/19 03:20 Dose: Not Given Documented by: Benzonatate (Tessalon Perle) 200 mg PO TID PRN PRN PRN Reason: COUGH Carvedilol (Coreg) 6.25 mg PO BID [facility] Last Admin: 12/16/19 22:02 Dose: 6.25 mg Documented by: Cholecalciferol (Vitamin D (25mcg)) 1,000 unit PO DAILY [facility] Last Admin: 12/16/19 11:26 Dose: 1,000 unit Documented by: Furosemide (Lasix) 20 mg IV X1 PRN PRN Reason: between transfusion Glucagon () 1 mg IM .X1 PRN PRN Reason: Hypoglycemia Sodium Chloride () 250 mls @ 15 mls/hr IV .[id number] PRN PRN Reason: Saline Flush Sodium Chloride () 250 mls @ 15 mls/hr IV .[id number] PRN PRN Reason: Additional IVPB Infusion Dextrose (Dextrose 10%-Water) 250 mls @ 999 mls/hr IV .Q16M PRN; Protocol PRN Reason: HYPOGLYCEMIA Pantoprazole Sodium 40 mg/ (Sodium Chloride) 110 mls @ 330 mls/hr IV Q12 [facility] Last Infusion: 03/12/20 22:25 Dose: Infused Documented by: Ceftriaxone Sodium 2 gm/ (Sodium Chloride) 50 mls @ 100 mls/hr IV Q24 [facility] Fluconazole (Diflucan) 200 mg in 100 mls @ 100 mls/hr IV Q24 [facility] Nitroglycerin (Nitrostat) 0.4 mg SUBLINGUAL Q5M PRN PRN Reason: CARDIAC/CHEST PAIN Nutritional Formula (Lactose Free) (Ensure Enlive) 120 ml PO 4X/DAY [facility] Last Admin: 12/16/19 22:01 Dose: 120 ml Documented by: Oxycodone HCl (Oxyir) 5 mg PO Q4H PRN PRN PRN Reason: Pain Score 4-5/10 Polyethylene Glycol (Miralax) 17 gm PO DAILY [facility] Last Admin: 12/16/19 11:25 Dose: 17 gm Documented by: Pravastatin Sodium (Pravachol) 40 mg PO QHS [facility] Last Admin: 12/16/19 22:03 Dose: 40 mg Documented by: Prednisone () 10 mg PO [facility] Last Admin: 12/16/19 08:15 Dose: 10 mg Documented by: Prochlorperazine Edisylate (Compazine Iv) 5 mg IV Q4H PRN PRN PRN Reason: Breakthrough Nausea/Vomiting Psyllium Hydrophilic Mucilloid (Metamucil) 1 packet PO DAILY PRN PRN PRN Reason: Constipation Senna/Docusate Sodium (Senokot-S, Yahaira-Colace) 2 tablet PO BID PRN PRN Reason: Constipation Sodium Chloride () 10 - 40 ml IV UD PRN PRN Reason: SALINE FLUSH Last Admin: 12/16/19 18:08 Dose: 10 ml Documented by: STROKE Vital Signs/Narrative: Vital Signs Temp Pulse Resp BP Pulse Ox 12/17/19 06:00 90 22 H 100/51 L 100 12/17/19 05:00 90 20 H 116/68 100 12/17/19 04:00 98 F 92 21 H 122/63 H 100 Medical Necessity - Tobacco Use Smoking Status: Former smoker Assessment/Plan All Active Problems (Last Reviewed 12/15/19 @ 13:40 by Paty Gallego) COPD (chronic obstructive pulmonary disease) (Acute) Prostate cancer (Acute) Hx of CABG (Resolved) Enlarged lymph nodes (Acute) intermediate current use of anticoagulant (Acute) Presence of automatic implantable cardioverter-defibrillator (Acute) Malignant neoplasm of unspecified part of unspecified bronchus or lung (Acute) Immune thrombocytopenic purpura (Acute) Essential (primary) hypertension (Acute) Atherosclerotic heart disease of [place] coronary artery without angina pectoris (Acute) H/O hernia repair (Resolved) History of basal cell cancer (Acute) History of VA (myocardial infarction) (Acute) Cataract (Acute) BPH loc w/o ur obs/LUTS (Acute) Esophageal reflux (Acute) Osteoarthrosis (Acute) History of cardiac cath (Resolved) port placement (Acute) s/p intrajugular port placement (Resolved) History of removal of Port-a-Cath (Resolved ~09/2018) Chemotherapy management, encounter for (Resolved) Encounter for insertion of venous access port (Resolved) The patient is a 79 year old M with multiple comorbidities including coronary artery disease status post two-vessel CABG, 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 Tate for hypotension, dyspnea on exertion and diffuse edema. 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 1. Severe anemia with symptomatic hypotension, with anasarca: Patient is being admitted in ICU. 2 units of PRBC is ordered and transfused by ER physician. No clinical symptoms and signs of GI bleed. Admitting hemoglobin 5.3 improved to 8.3 after transfusion. On 12/16 patient had EGD and colonoscopy in the morning.EGD showed diffuse white plaques entire esophagus suggestive of diffuse esophageal candidiasis. Colonoscopy showed nonbleeding colonic angiectasia and clips were placed. Exam was otherwise negative. There was no telltale sign of bleeding with no masses or polyps. 2. COPD with chronic hypoxic respiratory failure, on 3 L of home oxygen on ambulation: Earlier during oxygen walking test as an outpatient, patient recommended 3 L of oxygen on ambulation. Currently pulse ox is 97% on 2 L of oxygen. Patient has chronic symptoms of cough, productive sputum secondary to COPD. On bronchodilator. Bronchopulmonary hygiene with chest physiotherapy and Pep and incentive spirometry. Discussed with import export coordinator On baseline 10 mg prednisone. Will try to taper to 7 mg may be starting tomorrow. 3. Right upper lobe lung cancer status post chemoradiation with radiation changes on x-ray: Patient follows Dr. Tate. 4. Cardiac conditions: Coronary artery disease status post two-vessel CABG, possible heart failure status post AICD: Patient follows water plumber at [facility] . EKG shows atrial sensed ventricular paced rhythm at 75 bpm. Echo on 12/16/2019 Interpretation Summary Moderately dilated left ventricle. The estimated ejection fraction is 25-30 %. There is severe global hypokinesis of the left ventricle. Severely dilated right ventricle. Moderate global right ventricular systolic dysfunction. The left atrium is mildly enlarged. Mild (1+) posteriorly directed mitral valve insufficiency. Moderate (2+) tricuspid valve insufficiency. Right ventricular systolic pressure estimated to be 40 mmHg. Mild pulmonary hypertension. 5. Multiple comorbidities including hypertension, ITP, dyslipidemia, BPH, prostate cancer, esophageal reflux: 6. DVT prophylaxis bilateral SCDs Advanced directive: Full code. Microbiology Past 72 Hours 12/15/19 20:40 Sputum, Expectorated/Coughed Gram Stain - Final 12/15/19 20:40 Sputum, Expectorated/Coughed Respiratory Culture - Final Serratia marcescens Gram positive mayra 12/16/19 Unknown Stool Stool Occult Blood (BARBARA) - Final Occult Blood Positive 12/15/19 19:30 Mucosa - Nasopharyngeal Respiratory Panel (PCR) - Final 12/16/19 01:00 Urine, Clean Catch Streptococcus pneumoniae Antigen (M - Final 12/16/19 01:00 Urine, Clean Catch Legionella Antigen - Final Laboratory Results 12/15/19 15:35: Diff Path Review Reviewed 12/15/19 16:30: Crossmatch See Detail 12/15/19 16:30: Crossmatch See Detail 12/16/19 16:00: Hgb 8.3 L, Hct 31.0 L 12/17/19 08:20: WBC Pending, RBC Pending, Hgb Pending, Hct Pending, MCV Pending, MCH Pending, MCHC Pending, RDW Std Deviation Pending, RDW Coeff of Khadijah Pending, Plt Count Pending Clinical Impression(s) from Imaging Studies Chest X-Ray 12/15/19 15:45 IMPRESSION: Stable examination with increased markings in the right upper lobe and right perihilar region suggestive of postradiation fibrosis. Inpatient E&M: [id number] [facility] Hosp L3
[2019-12-17 09:08] LABS: Hemoglobin 8.6 g/dL (13.0-16.5); Mean Corp Hgb Conc 26.9 g/dL (32-36); Mean Corpuscular Hgb 20.2 pg (27.0-32.0); Mean Corpuscular Volume 75.3 fL (80-94); POSITIVE COUNT YES; POSITIVE MORPHOLOGY YES; Platelet Count 59 K/mm3 (150-450); RBC Distribution Width CV 23.8 % (11.6-14.6); RBC Distribution Width SD 62.4 fl (35.1-43.9); Red Blood Count 4.25 M/mm3 (4.6-6.2); White Blood Count 5.3 K/mm3 (4.4-11.0)
[2019-12-17 09:17] LABS: Scan Indicated on CBC? Y/N YES- FLAGS NOTED
[2019-12-17 09:38] LABS: Pathologist Review Reviewed
[2019-12-17 09:41] LABS: Differential Comment SCANNED
[2019-12-17] MEDS: Carvedilol 6.25 MG Tablet PO (09:45)
[2019-12-17] MEDS: predniSONE 10 MG Tablet PO (09:45)
[2019-12-17] MEDS: Polyethylene Glycol 3350 17 GM PACKET PO (09:45)
--- NOTE | 2019-12-17 09:57 | PN.CARD_ITS ---
Subjectve: Patient seen and examined today. Patient denies any chest pain but have some mild conversational dyspnea. Status post EGD and colonoscopy this morning demonstrated a colonic ectasia which was clipped by Dr. Galindo. No chest pain or anginal symptoms. Feels much better after PRBCs. Objective: Vital Signs Temp Pulse Resp BP Pulse Ox 98 F 90 22 H 100/51 L 100 12/17/19 04:00 12/17/19 06:00 12/17/19 06:00 12/17/19 06:00 12/17/19 06:00 Oxygen Flow Rate (L/min) 4 Oxygen Delivery Method Nasal Cannula Weight: 178 lb 5.663 oz Body Mass Index (BMI) 24.2 Intake and Output for Last 24 Hours 12/15/19 12/16/19 12/17/19 23:59 23:59 23:59 Intake Total 233.33 / 833.33 3035 / 3535 950 / 950 Output Total 200 / 450 1900 / 2800 2000 / 2000 Balance 33.33 / 383.33 1135 / 735 -1050 / -1050 General: Awake, Alert, Oriented x 3 HEENT: PERRL, EOMI, Sclera Non Icteric Neck: Supple, Good ROM, No Lymph Node Enlargement Lungs: Diminished Nishant Bases Cardiovascular: Regular Rhythm, Normal S1, Normal S2, No Murmurs, No Rubs, No Gallops Vascular: No Carotid Bruits, Normal Femoral Pulses, Normal Radial Pulses, Normal Dorsalis Pedal Pulse, Normal Posterior Tibial Pulses Abdomen: Bowel Sounds Present, Soft, Non Tender, No HSM, No Organomegaly Extremities: No Cyanosis, No Clubbing, No edema Neurological: No Focal Motor or Sensory Deficit 12/16/19 16:00: Hgb 8.3 L, Hct 31.0 L 12/17/19 08:20: WBC 5.3, RBC 4.25 L, Hgb 8.6 L, Hct 32.0 L, MCV 75.3 L, MCH 20.2 L, MCHC 26.9 L, Plt Count 59 L Rhythm: EKG: ECHO: Stress Test: Cardiac Cath: PCI: CT Surgery: Holter monitor: EPS: PPM: CXR: Chest CT Scan: Medical Necessity - Tobacco Use Smoking Status: Former smoker Assessment/Plan 1. LV dysfunction: The patient underwent a 2D echo with Doppler on 12/16/2019 which demonstrated the following results: Moderately dilated left ventricle. The estimated ejection fraction is 25-30 %. There is severe global hypokinesis of the left ventricle. Severely dilated right ventricle. Moderate global right ventricular systolic dysfunction. The left atrium is mildly enlarged. Mild (1+) posteriorly directed mitral valve insufficiency. Moderate (2+) tricuspid valve insufficiency. Right ventricular systolic pressure estimated to be 40 mmHg. Mild pulmonary hypertension. The study was technically difficult. Contrast injection was performed. There is no comparison study available. The patient has received several units of PRBCs, and feels much better. I recommended that he avoid antiplatelet therapy such as baby aspirin. He underwent a colonoscopy today which demonstrated colonic ectasia requiring clipping. EGD was negative except for candidiasis. At this point would recommend keeping the patient's hemoglobin above 8.0. Recommend increasing his Coreg to 12.5 mg daily, and restarting his lisinopril at 5 mg a day. In addition I would recommend Lasix 40 mg p.o. daily for LV dysfunction and mild pulmonary hypertension. At some point the patient may require a noninvasive stress test when she is completely recovered from his anemia. Continue PPI therapy going forward. 2. Hyperlipidemia: Continue Pravachol therapy. 3. Patient may follow-up with Dr. Pacheco going forward. Thank you very much for the opportunity to participate in the cardiac care of your patient. Patient may be discharged from a cardiovascular standpoint if he is hemodynamically stable on his adjusted medication therapy, and follow-up with Dr. Pacheco going forward. Inpatient E&M: [id number] [facility] Hosp L2
[2019-12-17] MEDS: Ipratropium/Albuterol Sulfate 3 ML AMPUL.NEB INHALATION ×3 (10:58→20:50)
--- NOTE | 2019-12-17 11:23 | CASEMGMT ---
SW spoke w/pt in the room, reviewed palliative care w/pt. Pt may be interested in the program, took a brochure and will speak w/his family. Pt states if he decides wants further information will call to set up an appointment. HALEY Iqbal
[2019-12-17] MEDS: NYSTATIN 500,000 UNIT/5 ML UDC 500000 UNIT PO ×3 (14:24→21:21)
[2019-12-17] MEDS: Pravastatin 40 MG Tablet PO (21:22)
[2019-12-17] MEDS: Lisinopril 5 MG Tablet PO (21:22)
[2019-12-17] MEDS: Carvedilol 12.5 MG Tablet PO (21:22)
[2019-12-18] VITALS (18 sets, daily range): BP systolic 97–123; BP diastolic 39–66; PULSE 68–95; RESP 16–24; TEMP 36.5–37.1; O2SAT 92–99
[2019-12-18] MEDS: Ipratropium/Albuterol Sulfate 3 ML AMPUL.NEB INHALATION ×4 (03:23→22:57)
[2019-12-18 06:51] LABS: Absolute Lymphocyte Count 0.47 X10^3/uL (0.83-4.51); Absolute Neutrophil Count 2.6 X10^3/uL (2.0-7.7); Eosinophil# 0.01 X10^3/uL; Eosinophils% 0.3 % (0-5); Hematocrit 26.6 % (40-54); Hemoglobin 6.9 g/dL (13.0-16.5); Lymphocyte # 0.47 X10^3/ul (4.0); Lymphocyte % 13.5 % (19-41); Mean Corp Hgb Conc 25.9 g/dL (32-36); Mean Corpuscular Hgb 19.4 pg (27.0-32.0); Mean Corpuscular Volume 74.9 fL (80-94); Monocyte# 0.33 X10^3/uL; Monocyte% 9.5 % (0-10); NRBC Flagged by Analyzer 0 % (0-5); Neutrophil # 2.64 X10^3/uL (2.7-7.7); Neutrophil % 76.1 % (47-70); POSITIVE COUNT YES; POSITIVE DIFFERENTIAL YES; POSITIVE MORPHOLOGY YES; RBC Distribution Width CV 24.2 % (11.6-14.6); RBC Distribution Width SD 64.6 fl (35.1-43.9); Red Blood Count 3.55 M/mm3 (4.6-6.2); White Blood Count 3.5 K/mm3 (4.4-11.0)
[2019-12-18 07:02] LABS: Anion Gap 5 (5-15); BUN 18 mg/dL (7-18); BUN/Creat Ratio 18.3 RATIO (10-20); Chloride 109 mmol/L (98-107); Creatinine, Serum 0.98 mg/dL (0.70-1.30); EST Glomerular Filtration Rate 78 mL/min (>60); Est Glom Filt Rate - Afr Amer 94 mL/min (>60); Estimated Creatinine Clearance 65.99 ml/min; Glucose 100 mg/dL (74-106); Sodium Level 141 mmol/L (136-145)
[2019-12-18 07:25] LABS: Differential Indicated SCAN CRITERIA MET; Platelet Count 50 K/mm3 (150-450)
[2019-12-18 07:27] LABS: Anisocytosis 2+; Hypochromasia 2+; Microcytosis 3+; Platelet Estimate MKD DEC (ADEQ)
[2019-12-18 07:28] LABS: Polychromasia RARE; Spherocyte 1+
--- NOTE | 2019-12-18 08:37 | PN_ITS ---
Patient Problems: Active and Suspected Problems (Last Reviewed 12/15/19 @ 13:40 by Paty Gallego) Pancytopenia (Acute) History of malignant neoplasm of lung (Acute) Subjective: The patient was seen and examined at the bedside this morning. Events from the last 24 hours have been reviewed. The patient is currently afebrile, hemody namically stable and maintaining appropriate oxygen saturations on 2 L/min via nasal cannula. Hemoglobin fell this morning to 6.9 g/dL. Platelet count also fell to 50,000. The patient is currently receiving 1 additional unit of packed red blood cells. The patient denies the presence of abdominal pain. Objective: The patient's most recent lab work, culture data and imaging studies have all been personally reviewed. Stool for occult blood was positive. Respiratory viral panel was negative. Sputum Gram stain was positive for pansensitive Serratia marcescens. Surface echocardiogram revealed a moderately dilated LV with an ejection fraction of 25 to 30%. There was severe global hypokinesis of the LV with moderate global RV systolic dysfunction. Right ventricular systolic pressure was estimated to be 40 mmHg. - Physical Exam Vitals/I&O's: Vital Signs Temp Pulse Resp BP Pulse Ox 98.3 F 93 20 H 119/63 97 12/18/19 08:29 12/18/19 08:29 12/18/19 08:29 12/18/19 08:29 12/18/19 08:29 Oxygen Flow Rate (L/min) 2 Oxygen Delivery Method Nasal Cannula Weight: 179 lb 0.246 oz Body Mass Index (BMI) 24.2 Intake and Output for Last 24 Hours 12/16/19 12/17/19 12/18/19 23:59 23:59 23:59 Intake Total 3035 / 3535 2280 / 2280 100 / 100 Output Total 1900 / 2800 2850 / 2850 225 / 225 Balance 1135 / 735 -570 / -570 -125 / -125 General: Alert, Cooperative, No apparent distress HEENT: Atraumatic, Normocephalic Oral: No Gingival or Mucosal Lesions/ Ulcerations Neck: Supple, No Nodes, Trachea Midline Lungs: No rhonchi, No wheeze, No rales, Diminished Cardiovascular: Regular rate, Regular Rhythm, Normal S1, Normal S2 Abdomen: Bowel Sounds Present, Soft, Non Tender Extremities: No clubbing, No cyanosis, No edema Skin: No breakdown Musculoskeletal: No Tenderness to Palpation of Joints or Extremities Lymphatic: No Cervical, Supraclavicular, or Inguinal Adenopathy Neurological: Cranial nerves II-XII grossly intact, Neuro grossly intact Psych/Mental Status: Alert and oriented to time, place, person, mood and affect Labs (Last 48 Hours) 12/15/19 12/15/19 12/15/19 15:35 16:30 16:30 WBC RBC Hgb Hct MCV MCH MCHC RDW Std Deviation RDW Coeff of Khadijah Plt Count Immature Gran % (Auto) Neut % (Auto) Lymph % (Auto) [place] % (Auto) Eos % (Auto) Baso % (Auto) Absolute Neuts (auto) Absolute Lymphs (auto) Nucleated RBC % Differential Comment Diff Path Review Reviewed Platelet Estimate Polychromasia Hypochromasia Anisocytosis Microcytosis Spherocytes Sodium Potassium Chloride Carbon Dioxide Anion Gap BUN Creatinine Estim Creat Clear Calc Est GFR (MDRD) Af Amer Est GFR (MDRD) Non-Af BUN/Creatinine Ratio Glucose Calcium Crossmatch See Detail See Detail 12/16/19 12/16/19 12/17/19 06:30 16:00 08:20 WBC 5.3 RBC 4.25 L Hgb 8.3 L 8.6 L Hct 31.0 L 32.0 L MCV 75.3 L MCH 20.2 L MCHC 26.9 L RDW Std Deviation 62.4 H RDW Coeff of Khadijah 23.8 H Plt Count 59 L Immature Gran % (Auto) Neut % (Auto) Lymph % (Auto) [place] % (Auto) Eos % (Auto) Baso % (Auto) Absolute Neuts (auto) Absolute Lymphs (auto) Nucleated RBC % Differential Comment SCANNED Diff Path Review Reviewed Platelet Estimate Polychromasia Hypochromasia Anisocytosis Microcytosis Spherocytes Sodium Potassium Chloride Carbon Dioxide Anion Gap BUN Creatinine Estim Creat Clear Calc Est GFR (MDRD) Af Amer Est GFR (MDRD) Non-Af BUN/Creatinine Ratio Glucose Calcium Crossmatch 12/18/19 12/18/19 05:49 05:49 WBC 3.5 L RBC 3.55 L Hgb 6.9 L Hct 26.6 L MCV 74.9 L MCH 19.4 L MCHC 25.9 L RDW Std Deviation 64.6 H RDW Coeff of Khadijah 24.2 H Plt Count 50 L* Immature Gran % (Auto) 0.600 Neut % (Auto) 76.1 H Lymph % (Auto) 13.5 L [place] % (Auto) 9.5 Eos % (Auto) 0.3 Baso % (Auto) 0.0 Absolute Neuts (auto) 2.6 Absolute Lymphs (auto) 0.47 L Nucleated RBC % 0 Differential Comment Diff Path Review May foll Platelet Estimate MKD DEC Polychromasia RARE Hypochromasia 2+ Anisocytosis 2+ Microcytosis 3+ Spherocytes 1+ H Sodium 141 Potassium 4.0 Chloride 109 H Carbon Dioxide 27.0 Anion Gap 5 BUN 18 Creatinine 0.98 Estim Creat Clear Calc 65.99 Est GFR (MDRD) Af Amer 94 Est GFR (MDRD) Non-Af 78 BUN/Creatinine Ratio 18.3 Glucose 100 Calcium 8.0 L Crossmatch Microbiology 12/16/19 01:00 Urine, Clean Catch Urine Culture - Final Mixed Gram Positive Organisms 12/15/19 20:40 Sputum, Expectorated/Coughed Gram Stain - Final 12/15/19 20:40 Sputum, Expectorated/Coughed Respiratory Culture - Final Serratia marcescens Gram positive mayra 12/16/19 Unknown Stool Stool Occult Blood (BARBARA) - Final Occult Blood Positive 12/15/19 19:30 Mucosa - Nasopharyngeal Respiratory Panel (PCR) - Final Clinical Impression(s) from Imaging Studies Chest X-Ray 12/15/19 15:45 IMPRESSION: Stable examination with increased markings in the right upper lobe and right perihilar region suggestive of postradiation fibrosis. Electronically Signed: Dangelo Blevins, at 16:02 EDT , Service support , Current Medications Acetaminophen (Tylenol) 650 mg PO Q6H PRN PRN PRN Reason: Pain Score 1-10/Temp > 100.7 F Albuterol Sulfate (Ventolin Aerosols) 2.5 mg INHALATION Q2H PRN PRN PRN Reason: SHORTNESS OF BREATH Albuterol/Ipratropium (Duoneb) 3 ml INHALATION Q4H.RT [facility] Last Admin: 12/18/19 07:10 Dose: 3 ml Documented by: Benzonatate (Tessalon Perle) 200 mg PO TID PRN PRN PRN Reason: COUGH Carvedilol (Coreg) 12.5 mg PO BID COUNT INCLUDES THE [facility] Last Admin: 12/17/19 21:22 Dose: 12.5 mg Documented by: Cholecalciferol (Vitamin D (25mcg)) 1,000 unit PO DAILY COUNT INCLUDES THE [facility] Last Admin: 12/17/19 09:46 Dose: 1,000 unit Documented by: Furosemide (Lasix) 20 mg IV X1 PRN PRN Reason: between transfusion Furosemide (Lasix) 40 mg PO DAILY COUNT INCLUDES THE [facility] Glucagon () 1 mg IM .X1 PRN PRN Reason: Hypoglycemia Sodium Chloride () 250 mls @ 15 mls/hr IV .[id number] PRN PRN Reason: Saline Flush Sodium Chloride () 250 mls @ 15 mls/hr IV .[id number] PRN PRN Reason: Additional IVPB Infusion Dextrose (Dextrose 10%-Water) 250 mls @ 999 mls/hr IV .Q16M PRN; Protocol PRN Reason: HYPOGLYCEMIA Pantoprazole Sodium 40 mg/ (Sodium Chloride) 110 mls @ 330 mls/hr IV Q12 COUNT INCLUDES THE [facility] Last Infusion: 12/17/19 21:41 Dose: Infused Documented by: Ceftriaxone Sodium 2 gm/ (Sodium Chloride) 50 mls @ 100 mls/hr IV Q24 COUNT INCLUDES THE [facility] Last Infusion: 12/17/19 10:36 Dose: Infused Documented by: Fluconazole (Diflucan) 200 mg in 100 mls @ 100 mls/hr IV Q24 COUNT INCLUDES THE [facility] Last Infusion: 12/17/19 11:19 Dose: Infused Documented by: Lisinopril (Zestril) 5 mg PO QHS COUNT INCLUDES THE [facility] Last Admin: 12/17/19 21:22 Dose: 5 mg Documented by: Nitroglycerin (Nitrostat) 0.4 mg SUBLINGUAL Q5M PRN PRN Reason: CARDIAC/CHEST PAIN Nutritional Formula (Lactose Free) (Ensure Enlive) 120 ml PO 4X/DAY COUNT INCLUDES THE [facility] Last Admin: 12/17/19 21:21 Dose: Not Given Documented by: Nystatin (Nystatin) 500,000 unit PO 4X/DAY COUNT INCLUDES THE [facility] Last Admin: 12/17/19 21:21 Dose: 500,000 unit Documented by: Oxycodone HCl (Oxyir) 5 mg PO Q4H PRN PRN PRN Reason: Pain Score 4-5/10 Polyethylene Glycol (Miralax) 17 gm PO DAILY COUNT INCLUDES THE [facility] Last Admin: 12/17/19 09:45 Dose: 17 gm Documented by: Pravastatin Sodium (Pravachol) 40 mg PO QHS COUNT INCLUDES THE [facility] Last Admin: 12/17/19 21:22 Dose: 40 mg Documented [facility]: [facility] () [facility] Admin: 12/17/19 09:45 Dose: 10 mg Documented by: Prochlorperazine Edisylate (Compazine Iv) 5 mg IV Q4H PRN PRN PRN Reason: Breakthrough Nausea/Vomiting Psyllium Hydrophilic Mucilloid (Metamucil) 1 packet PO DAILY PRN PRN PRN Reason: Constipation Senna/Docusate Sodium (Senokot-S, Yahaira-Colace) 2 tablet PO BID PRN PRN Reason: Constipation Sodium Chloride () 10 - 40 ml IV UD PRN PRN Reason: SALINE FLUSH Last Admin: 12/16/19 18:08 Dose: 10 ml Documented by: Medical Necessity - Tobacco Use Smoking Status: Former smoker Assessment/Plan All Active Problems (Last Reviewed 12/15/19 @ 13:40 by Paty Gallego) Pancytopenia (Acute) History of malignant neoplasm of lung (Acute) COPD (chronic obstructive pulmonary disease) (Acute) Prostate cancer (Acute) Hx of CABG (Resolved) Enlarged lymph nodes (Acute) 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) Presence of automatic implantable cardioverter-defibrillator (Acute) Malignant neoplasm of unspecified part of unspecified bronchus or lung (Acute) Immune thrombocytopenic purpura (Acute) Essential (primary) hypertension (Acute) Atherosclerotic heart disease of [place] coronary artery without angina pectoris (Acute) H/O hernia repair (Resolved) History of basal cell cancer (Acute) History of [place] (myocardial infarction) (Acute) Cataract (Acute) BPH loc w/o ur obs/LUTS (Acute) Esophageal reflux (Acute) Osteoarthrosis (Acute) History of cardiac cath (Resolved) port placement (Acute) s/p intrajugular port placement (Resolved) History of removal of Port-a-Cath (Resolved ~09/2018) Chemotherapy management, encounter for (Resolved) Encounter for insertion of venous access port (Resolved) RECOMMENDATIONS: 1. Check H&H posttransfusion. 2. Continue PPI therapy. 3. Diflucan for esophageal candidiasis. 4. Continue bronchodilators. Continue ceftriaxone as ordered. 5. Wean supplemental oxygen as tolerated. 6. Encourage incentive spirometer use and mobilize patient as tolerated. IMPRESSIONS: 1. Symptomatic anemia/chronic thrombocytopenia (immune thrombocytopenic purpura) The patient was admitted to the hospital with symptomatic anemia and a hemoglobin of 5.3 g/dL. There were no overt signs of blood loss at this time. 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 The patient initially stabilized following endoscopic evaluation. However, blood counts again fell this morning. The patient is once again receiving transfusion of blood products. Check H&H posttransfusion. Continue PPI therapy. If blood counts continue to fall, consider obtaining a bleeding scan. 2. 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 Villareal of oncology. 3. History of COPD/emphysema/chronic hypoxemic respiratory failure The patient will be continued on scheduled bronchodilators and supplemental oxygen. Antibiotics will be continued to address the Serratia marcescens isolated on sputum culture. Continue baseline prednisone dose. 4. History of coronary artery disease status post CABG/chronic systolic heart failure Complicates care, management, recovery and prognosis. Cardiology is currently following to assist with medical management. This note was generated with [employer] dictation software. It may contain incorrect words, spelling, and punctuation that were not noted in checking the note before signing. Inpatient E&M: 56873 Subs Hosp L2
[2019-12-18] MEDS: Carvedilol 12.5 MG Tablet PO ×2 (09:58→21:01)
[2019-12-18] MEDS: predniSONE 10 MG Tablet PO (09:58)
[2019-12-18] MEDS: Furosemide 40 MG Tablet PO (09:58)
[2019-12-18] MEDS: NYSTATIN 500,000 UNIT/5 ML UDC 500000 UNIT PO ×4 (09:59→21:01)
--- NOTE | 2019-12-18 10:33 | PCM.PN.SRG ---
Subjective: Patient not complaining of any abdominal pain. Tolerating liquids. Hemoglobin continued to drop last night. Platelet count 50,000. Objective: Abdomen is soft and nontender - Physical Exam Vitals/I&O's: Vital Signs Temp Pulse Resp BP Pulse Ox 97.9 F 94 20 H 100/52 L 95 12/18/19 09:44 12/18/19 09:44 12/18/19 09:44 12/18/19 09:44 12/18/19 09:44 Oxygen Flow Rate (L/min) 2 Oxygen Delivery Method Nasal Cannula Weight: 179 lb 0.246 oz Body Mass Index (BMI) 24.2 Intake and Output for Last 24 Hours 12/16/19 12/17/19 12/18/19 23:59 23:59 23:59 Intake Total 3035 / 3535 2280 / 2280 100 / 100 Output Total 1900 / 2800 2850 / 2850 225 / 225 Balance 1135 / 735 -570 / -570 -125 / -125 Microbiology Past 72 Hours 12/15/19 20:31 Blood Culture (Wb) - Left Wrist Blood Culture - Preliminary No growth in 48 hours. 12/15/19 20:40 Blood Culture (Wb) - Anticubital Right Blood Culture - Preliminary No growth in 48 hours. 12/16/19 01:00 Urine, Clean Catch Urine Culture - Final Mixed Gram Positive Organisms 12/15/19 20:40 Sputum, Expectorated/Coughed Gram Stain - Final 12/15/19 20:40 Sputum, Expectorated/Coughed Respiratory Culture - Final Serratia marcescens Gram positive mayra 12/16/19 Unknown Stool Stool Occult Blood (BARBARA) - Final Occult Blood Positive 12/15/19 19:30 Mucosa - Nasopharyngeal Respiratory Panel (PCR) - Final 12/16/19 01:00 Urine, Clean Catch Streptococcus pneumoniae Antigen (M - Final 12/16/19 01:00 Urine, Clean Catch Legionella Antigen - Final Laboratory Results 12/15/19 16:30: Crossmatch See Detail 12/18/19 05:49: Sodium 141, Potassium 4.0, Chloride 109 H, Carbon Dioxide 27.0, Anion Gap 5, BUN 18, Creatinine 0.98, Estim Creat Clear Calc 65.99, Est GFR (MDRD) Af Amer 94, Est GFR (MDRD) Non-Af 78, BUN/Creatinine Ratio 18.3, Glucose 100, Calcium 8.0 L 12/18/19 05:49: WBC 3.5 L, RBC 3.55 L, Hgb 6.9 L, Hct 26.6 L, MCV 74.9 L, MCH 19.4 L, MCHC 25.9 L, RDW Std Deviation 64.6 H, RDW Coeff of Khadijah 24.2 H, Plt Count 50 L*, Immature Gran % (Auto) 0.600, Neut % (Auto) 76.1 H, Lymph % (Auto) 13.5 L, [place] % (Auto) 9.5, Eos % (Auto) 0.3, Baso % (Auto) 0.0, Absolute Neuts (auto) 2.6, Absolute Lymphs (auto) 0.47 L, Nucleated RBC % 0, Diff Path Review February, Platelet Estimate MKD DEC, Polychromasia RARE, Hypochromasia 2+, Anisocytosis 2+, Microcytosis 3+, Spherocytes 1+ H Current Medications Acetaminophen (Tylenol) 650 mg PO Q6H PRN PRN PRN Reason: Pain Score 1-10/Temp > 100.7 F Albuterol Sulfate (Ventolin Aerosols) 2.5 mg INHALATION Q2H PRN PRN PRN Reason: SHORTNESS OF BREATH Albuterol/Ipratropium (Duoneb) 3 ml INHALATION Q4H.RT [facility] Last Admin: 12/18/19 07:10 Dose: 3 ml Documented by: Benzonatate (Tessalon Perle) 200 mg PO TID PRN PRN PRN Reason: COUGH Carvedilol (Coreg) 12.5 mg PO BID [facility] Last Admin: 12/18/19 09:58 Dose: 12.5 mg Documented by: Cholecalciferol (Vitamin D (25mcg)) 1,000 unit PO DAILY [facility] Last Admin: 12/18/19 09:59 Dose: 1,000 unit Documented by: Furosemide (Lasix) 20 mg IV X1 PRN PRN Reason: between transfusion Furosemide (Lasix) 40 mg PO DAILY [facility] Last Admin: 12/18/19 09:58 Dose: 40 mg Documented by: Glucagon () 1 mg IM .X1 PRN PRN Reason: Hypoglycemia Sodium Chloride () 250 mls @ 15 mls/hr IV .[id number] PRN PRN Reason: Saline Flush Sodium Chloride () 250 mls @ 15 mls/hr IV .[id number] PRN PRN Reason: Additional IVPB Infusion Dextrose (Dextrose 10%-Water) 250 mls @ 999 mls/hr IV .Q16M PRN; Protocol PRN Reason: HYPOGLYCEMIA Pantoprazole Sodium 40 mg/ (Sodium Chloride) 110 mls @ 330 mls/hr IV Q12 [facility] Last Infusion: 12/17/19 21:41 Dose: Infused Documented by: Ceftriaxone Sodium 2 gm/ (Sodium Chloride) 50 mls @ 100 mls/hr IV Q24 [facility] Last Infusion: 12/17/19 10:36 Dose: Infused Documented by: Fluconazole (Diflucan) 200 mg in 100 mls @ 100 mls/hr IV Q24 [facility] Last Infusion: 12/17/19 11:19 Dose: Infused Documented by: Lisinopril (Zestril) 5 mg PO QHS [facility] Last Admin: 12/17/19 21:22 Dose: 5 mg Documented by: Nitroglycerin (Nitrostat) 0.4 mg SUBLINGUAL Q5M PRN PRN Reason: CARDIAC/CHEST PAIN Nutritional Formula (Lactose Free) (Ensure Enlive) 120 ml PO 4X/DAY [facility] Last Admin: 12/18/19 09:58 Dose: Not Given Documented by: Nystatin (Nystatin) 500,000 unit PO 4X/DAY [facility] Last Admin: 12/18/19 09:59 Dose: 500,000 unit Documented by: Oxycodone HCl (Oxyir) 5 mg PO Q4H PRN PRN PRN Reason: Pain Score 4-5/10 Polyethylene Glycol (Miralax) 17 gm PO DAILY [facility] Last Admin: 12/18/19 09:59 Dose: Not Given Documented by: Pravastatin Sodium (Pravachol) 40 mg PO QHS [facility] Last Admin: 12/17/19 21:22 Dose: 40 mg Documented by: [facility] () [facility] Last Admin: 12/18/19 09:58 Dose: 10 mg Documented by: Prochlorperazine Edisylate (Compazine Iv) 5 mg IV Q4H PRN PRN PRN Reason: Breakthrough Nausea/Vomiting Psyllium Hydrophilic Mucilloid (Metamucil) 1 packet PO DAILY PRN PRN PRN Reason: Constipation Senna/Docusate Sodium (Senokot-S, Yahaira-Colace) 2 tablet PO BID PRN PRN Reason: Constipation Sodium Chloride () 10 - 40 ml IV UD PRN PRN Reason: SALINE FLUSH Last Admin: 12/16/19 18:08 Dose: 10 ml Documented by: Medical Necessity - Tobacco Use Smoking Status: Former smoker Assessment/Plan All Active Problems (Last Reviewed 12/15/19 @ 13:40 by Paty Gallego) COPD (chronic obstructive pulmonary disease) (Acute) Prostate cancer (Acute) Hx of CABG (Resolved) Enlarged lymph nodes (Acute) 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) Presence of automatic implantable cardioverter-defibrillator (Acute) Malignant neoplasm of unspecified part of unspecified bronchus or lung (Acute) Immune thrombocytopenic purpura (Acute) Essential (primary) hypertension (Acute) Atherosclerotic heart disease of [place] coronary artery without angina pectoris (Acute) H/O hernia repair (Resolved) History of basal cell cancer (Acute) History of [place] (myocardial infarction) (Acute) Cataract (Acute) BPH loc w/o ur obs/LUTS (Acute) Esophageal reflux (Acute) Osteoarthrosis (Acute) History of cardiac cath (Resolved) port placement (Acute) s/p intrajugular port placement (Resolved) History of removal of Port-a-Cath (Resolved ~09/2018) Chemotherapy management, encounter for (Resolved) Encounter for insertion of venous access port (Resolved) Is receiving transfusion at this point. We will see if his hemoglobin stables. If it does not. Would recommend a bleeding scan. Should also consider transfusion of platelets.
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
[2019-12-18] MEDS: Fluticasone 0.05% 1 SPRAY NASAL.SRY NASAL ×2 (13:41→21:02)
[2019-12-18] MEDS: Sodium Chloride 0.65% 1 SPRAY SPRAY.BTL 2 SPRAY NASAL ×2 (13:41→21:03)
--- NOTE | 2019-12-18 15:25 | CON.PCM_ITS ---
Subjective Date of Service:: 12/18/19 Chief Complaint: Pancytopenia History of Present Illness: Mr. 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 Tate. Patient was found to be hypotensive and subjectively lightheaded, chest x-ray showed increased markings right upper lobe consistent with post radiation fibrosis and CBC revealed severe anemia as evidenced by hemoglobin 5.3, white blood cell count 6.2 and platelets at 68,000. Patient was subsequently admitted to the ICU for management of an diffuse edema and anemia. Supported with PRBC transfusion, diuretics and placed on PPI twice daily. Iron studies revealed he is deficient, TSH 4.79. Echocardiogram on 12/16/2019 demonstrates EF 25 to 30%. Patient underwent EGD and colonoscopy on 313 under the care of Dr. Perry. Endoscopy reports reviewed and indicate candidiasis of the esophagus and AVM in the cecum however no stigmata of bleeding or active bleeding clip placed. Patient has required 1 unit PRBCs however since scopes. Oncology history as follows: Mr. Gallego was originally diagnosed with stage I non-small cell lung cancer squamous histology September 2014. Patient was not felt to be surgical candidate and received SBRT to right upper lobe lesion. He was on surveillance until February 2018 when imaging suggested hypermetabolic activity in the mediastinum. He underwent CT-guided biopsy of level 2 lymph node pathology of which was nonconclusive however felt to be recurrent squamous cell carcinoma. As a result he underwent concurrent chemoradiation with carboplatin and paclitaxel from 04/15/2018 through 05/26/2018 but was only able to receive 2 cycles of chemotherapy limited by thrombocytopenia (chronic). Patient declined adjuvant durvalumab. PET/CT obtained 12/07/2018 was negative. He has been on surveillance with his primary oncologist Dr. Villareal since that time. October 2017 he was diagnosed prostate cancer with Crescencio 6, 1 and 12 cores, 20% core. Given favorable characteristics, the patient elected active surveillance. Follows with his urologist Dr. Pickett in [facility]. Patient states he missed planned follow-up and has not had his PSA checked in a few months. Upon entering the room patient is sitting upright in bed with at the bedside. States that his appetite has been poor x3 months although breathing about the same. He specifically denies bone pain, abdominal pain, and any episodes of overt bleeding (mucosal bleeding, epistaxis) or abnormal bruising. Past Medical History: Chronic Problems (Last Reviewed 12/15/19 @ 13:40 by Paty Gallego) CHF (congestive heart failure) (Chronic) CAD (coronary artery disease) (Chronic) Pacemaker (Chronic) Hyperlipidemia (Chronic) CHF (congestive heart failure), NYHA class III (Chronic) Thrombocytopenia (Chronic) Primary malignant neoplasm of right upper lobe of lung (Chronic) Regional lymph node metastasis present (Chronic) COPD (chronic obstructive pulmonary disease) (Chronic) CAD (coronary artery disease) (Chronic) Presence of combination internal cardiac defibrillator (ICD) and pacemaker (Chronic) Past Medical/Surgical History: Past Medical History - Most Recent Inpatient Visit Past Medical History Start: 12/15/19 17:22 Text: Status: Complete Freq: ONCE Protocol: Document 12/15/19 18:03 AMW (Rec: 12/15/19 18:06 AMW [id number]) BMI Required to complete PMH What is Patient's BMI 24.2 Past Medical History Unable History Recalled No Query Text:Pt Unable/Family Not Present Neurologic Medical History Hx Stroke/TIA No Hx Dementia/Alzheimer's No Hx Parkinson's Disease No Hx Seizures No Hx Multiple Sclerosis No Hx Migraines No Cardiac Medical History VTE Present on Admission No Hx of Deep Vein Thrombosis/VTE/PE No Hx Hypertension Yes Hx Chest Pain/Angina Yes Hx Heart Attack Yes Hx Cardiac Surgery/Stents/Etc. Yes: cabg Hx Heart Failure No Hx Pacemaker/AICD Yes Hx Irregular Heartbeat and/or Afib No Hx Anticoagulant Therapy Yes: asa Query Text:(Coumadin, Aspirin, Plavix, Xarelto, etc.) Hx Pain in Legs when Walking/Leg Cramps No Respiratory Medical History Hx COPD Yes Hx Emphysema Yes Hx Smoking Yes Smoking Status Former smoker Hx Smoking Cessation Date 10/06/04 Hx Tobacco Use in last 12 months No Hx Sleep Apnea No Do you snore loudly (louder than talking No or can be heard through closed doors)? Do you often feel tired/ fatigued/ No sleepy during daytime? Has anyone observed you stop breathing No during sleep? STOP Results Negative GI Medical History Hx Ulcer No Hx Hepatitis No Hx Cirrhosis No Hx GI Bleed No Hx Unplanned Weight Loss No Genitourinary Medical History Indwelling Catheter in Place on Arrival/ No Admission Hx Renal Disease No Hx Dialysis No Musculoskeletal History Hx Arthritis No Hx Rheumatoid Arthritis No Endocrine Medical History Hx Diabetes No Hx Thyroid Disease No Hematologic Medical History Hx of Blood Transfusion No Hx of Transfusion in last 3 Months No Ever experience any problems with No transfusion(s)? Hx of Preganancy in last 3 Months N/A Nurse Filling Out Transfusion & AWELSH Questions: Date: 12/15/19 Time: 18:06 Psycho/Social Medical History Hx Depression No Hx Anxiety No Hx Behavior Disorder No Hx Alcohol Use Yes: rarely Hx Substance Use No Other Medical History Hx Blood Disorders Yes: thrombocytopenia Hx Anemia Yes Hx Cancer Yes: LUNG, PROSTATE Hx Drug Resistant Organism No Wound/Pressure Injury Present on Arrival No /Admission Query Text:If yes, chart assessment in Shift/Clinical Findings Central Line/PICC/VAD Present on Arrival No /Admission Antibiotics within last 7 days? No Methicillin Resistant Staphylococcus aureus Screening Active MRSA No Risk for Readmission Number of Risk Factors 6 At Risk for Readmission Patient is At Risk For Readmission Patient is eligible for Call Back Y Past Medical History (Last Reviewed 12/15/19 @ 13:40 by Paty Gallego) COPD (chronic obstructive pulmonary disease) (Acute) Prostate cancer (Acute) CHF (congestive heart failure) (Chronic) CAD (coronary artery disease) (Chronic) Pacemaker (Chronic) Enlarged lymph nodes (Acute) termite inspector current use of anticoagulant (Acute) Presence of automatic implantable cardioverter-defibrillator (Acute) Malignant neoplasm of unspecified part of unspecified bronchus or lung (Acute) Immune thrombocytopenic purpura (Acute) Essential (primary) hypertension (Acute) Atherosclerotic heart disease of platinum coronary artery without angina pectoris (Acute) Hyperlipidemia (Chronic) History of basal cell cancer (Acute) History of [place] (myocardial infarction) (Acute) Cataract (Acute) BPH loc w/o ur obs/LUTS (Acute) Esophageal reflux (Acute) Osteoarthrosis (Acute) port placement (Acute) Past Surgical History (Last Reviewed 12/15/19 @ 13:41 by Paty Gallego) Hx of CABG (Resolved) H/O hernia repair (Resolved) History of cardiac cath (Resolved) s/p intrajugular port placement (Resolved) History of removal of Port-a-Cath (Resolved ~09/2018) Maternal Family History: Family History (Last Reviewed 12/15/19 @ 13:41 by Paty Gallego) Brother Prostate cancer Lung cancer Lung disease Heart disease Grandfather Prostate cancer Mother Diabetes Heart disease Father CVA (cerebral vascular accident) - Social History Smoking Status: Former smoker Allergies/Adverse Reactions: Allergy/AdvReac Type Severity Reaction Status Date / Time levofloxacin [From Levaquin] Allergy Severe Unknown Verified 12/15/19 14:28 Review of Systems Constitutional:: Reports: Weakness, Fatigue. Denies: Fever, Sweats, Weight loss, Appetite change, Chills Cardiovascular:: Reports: Dyspnea on exertion. Denies: Chest pain, Palpitations, Orthopnea, PND, Shortness of breath Respiratory: Reports: Cough, Shortness of Breath, Wheezing. Denies: Hemoptysis Gastrointestinal:: Denies: Abdominal pain, Nausea, Vomiting, Diarrhea, Constipation - Last bowel movement 12/18/2019, Melena, Hematochezia Genitourinary: Reports: Urinary frequency. Denies: Dysuria, Hematuria, Flank pain Musculoskeletal:: Denies: Back pain, Myalgia, Arthralgia Skin: Denies: Rash, Skin Changes, Wounds Neurological:: Denies: Headache, Dizziness, Numbness, Tingling, Visual changes, Tinnitus, Hearing loss Psychiatric: Denies: Anxiety, Depression, Homicidal Ideations, Suicidal Ideations Vital Signs Height 6 ft Weight: 179 lb 0.246 oz Weight in Pounds 179.0 lbs BMI 23.4 Pulse Ox 95 Temperature 98.2 F Pulse Rate [Standing] 82 Pulse Rate [Sitting] 76 Pulse Rate [Lying] 74 Pulse Rate 83 Respiratory Rate 20 Blood Pressure [Standing] 86/47 Blood Pressure [Sitting] 89/60 Blood Pressure [Lying] 99/54 Blood Pressure [BP] 100/51 Blood Pressure 119/66 Blood Pressure Position [BP] Supine Blood Pressure Position Semi-Fowlers - Physical Exam General: Alert, Oriented x3, No apparent distress HEENT: Atraumatic, PERRLA, EOMI, Normocephalic Oropharynx:: Negative for: Dry mucosa Neck:: Supple, Trachea midline. Negative for: JVD, bilateral Cardiac:: Regular rate, Regular rhythm, Normal S1, Normal S2 Lungs: Rhonchi, Wheezes - Expiratory, Diminished, Increased respiratory effort - Conversational dyspnea Abdomen:: Bowel sounds x 4, Non-tender, - - Firm distended. Negative for: Hepatosplenomegaly Extremities:: Edema. Negative for: Cyanosis Neurological: Neuro grossly intact Skin:: Negative for: Lesions, Rash, Petechiae, Ecchymosis Psychiatric:: Appropriate affect, Euthymic Lymphatics:: Negative for: Cervical lymphadenopathy, Supraclavicular lymphadenopathy, Axillary lymphadenopathy Laboratory Data: Microbiology 12/15/19 20:31 Blood Culture - Preliminary Blood Culture (Wb) - Left Wrist No growth in 48 hours. 12/15/19 20:40 Blood Culture - Preliminary Blood Culture (Wb) - Anticubital Right No growth in 48 hours. 12/16/19 01:00 Urine Culture - Final Urine, Clean Catch Mixed Gram Positive Organisms 12/15/19 20:40 Gram Stain - Final Sputum, Expectorated/Coughed Respiratory Culture - Final Serratia marcescens Gram positive mayra 12/16/19 Unknown Stool Occult Blood (BARBARA) - Final Stool Occult Blood Positive 12/15/19 19:30 Respiratory Panel (PCR) - Final Mucosa - Nasopharyngeal 12/16/19 01:00 Streptococcus pneumoniae Antigen (M - Final Urine, Clean Catch 12/16/19 01:00 Legionella Antigen - Final Urine, Clean Catch Laboratory Tests 12/18/19 12/18/19 12/15/19 Range/Units 05:49 05:49 16:30 WBC 3.5 L (4.4-11.0) K/mm3 RBC 3.55 L (4.6-6.2) M/mm3 Hgb 6.9 L (13.0-16.5) g/dL Hct 26.6 L (40-54) % MCV 74.9 L (80-94) fL MCH 19.4 L (27.0-32.0) pg MCHC 25.9 L (32-36) g/dL RDW Std Deviation 64.6 H (35.1-43.9) fl RDW Coeff of Khadijah 24.2 H (11.6-14.6) % Plt Count 50 L* (150-450) K/mm3 Immature Gran % (Auto) 0.600 (0.0-0.9) % Neut % (Auto) 76.1 H (47-70) % Lymph % (Auto) 13.5 L (19-41) % Knox % (Auto) 9.5 (0-10) % Eos % (Auto) 0.3 (0-5) % Baso % (Auto) 0.0 (0-1) % Absolute Neuts (auto) 2.6 (2.0-7.7) X10^3/uL Absolute Lymphs (auto) 0.47 L (0.83-4.51) X10^3/uL Nucleated RBC % 0 (0-5) % Diff Path Review May foll Platelet Estimate MKD DEC (ADEQ) Polychromasia RARE Hypochromasia 2+ Anisocytosis 2+ Microcytosis 3+ Spherocytes 1+ H Sodium 141 (136-145) mmol/L Potassium 4.0 (3.5-5.1) mmol/L Chloride 109 H (98-107) mmol/L Carbon Dioxide 27.0 (21.0-32.0) mmol/L Anion Gap 5 (5-15) BUN 18 (7-18) mg/dL Creatinine 0.98 (0.70-1.30) mg/dL Estim Creat Clear Calc 65.99 ml/min Est GFR (MDRD) Af Amer 94 (>60) mL/min Est GFR (MDRD) Non-Af 78 (>60) mL/min BUN/Creatinine Ratio 18.3 (10-20) RATIO Glucose 100 (74-106) mg/dL Calcium 8.0 L (8.5-10.1) mg/dL Crossmatch See Detail Diagnostic Data: Diagnostic Data Chest X-Ray 12/15/19 15:45 IMPRESSION: Stable examination with increased markings in the right upper lobe and right perihilar region suggestive of postradiation fibrosis. Electronically Signed: Dangelo Blevins, at 16:02 EDT , Service support , Assessment and Plan 1. Pancytopenia?upon presentation 12/15/2019 white blood cell count 6.2, hemoglobin 5.3 and platelets 68,000. A. Leukopenia?WBC count 3.5 today, no neutropenia. This is likely attributable to medication administration (PPIs can cause leukopenia). Remains afebrile. B. Thrombocytopenia?patient has chronic history of thrombocytopenia. His baseline is between 70 and 80,000. Platelets today 50,000. Aside from what may be going on GI, he is not endorsing any overt bleeding or abnormal bruising. Transfuse only for platelet count less than 20,000. C. Severe anemia-as evidenced by hemoglobin 6.9 today. Has received a total of 4 units PRBCs. Iron studies reveal he is deficient. TSH mildly elevated at 4.79 as well. Endoscopies did not necessarily reveal source of bleed although AVM was identified in the cecum and clip placed. Advised continuation of PPI. May consider NM bleed scan. Will add orders for B12 folate, serum protein electrophoresis and light chain assays although creatinine within normal limits and corrected calcium within normal limits. Check haptoglobin. Level of suspicion for primary bone marrow disease very low. 2. History of non-small cell lung cancer, squamous histology?patient has been definitively treated with radiation therapy in 2013 and an attempt at concurrent chemoradiation with carboplatin paclitaxel for recurrent disease the summer 2017. He was only able to tolerate 2 cycles of carboplatin paclitaxel due to thrombocytopenia. He is due for surveillance studies but given his presentation would recommend CT chest and abdomen with contrast now. Order entered for LDH. 3. Prostate CA?Fyffe 6, 1 in 12 cores, 20% core, diagnosed October 2017. Given favorable characteristics of his disease he did elect active surveillance. Follows with urologist Dr. Pickett and [facility] [place]. Order entered for PSA. [facility] will continue to follow as new information becomes available. Virginia Benitez, MSN, GRAIN THRESHER, AOCNP Medications: Prescriptions This Visit Medication Instructions Recorded Albuterol Aerosols [Ventolin 2.5 mg INHALATION Q6H PRN PRN 12/15/19 Aerosols] Benzonatate 200 mg PO TID PRN PRN 12/15/19 Carvedilol [Coreg] 12.5 mg PO BID 12/15/19 Cholecalciferol (VIT D3) [Vitamin 1,000 unit PO DAILY 12/15/19 D] Medications Added to Medication List This Visit Category Date Time Status Fluticasone 0.05% [Flonase Nasal [place]] Med 12/18/19 12:03 Active 1 spray NASAL BID Furosemide [Lasix] Med 12/18/19 10:00 Active 40 mg PO DAILY Sodium Chloride 0.65% [[place] Nasal [place]] Med 12/18/19 14:00 Active 2 spray NASAL TID Primary Care Provider: Aleksandr Hernandez Referring Provider: - Problem List (1) Pancytopenia Status: Acute (2) History of malignant neoplasm of lung Status: Acute (3) Prostate cancer Status: Acute (4) Immune thrombocytopenic purpura Status: Acute
--- NOTE | 2019-12-18 15:56 | CT_ITS ---
STUDY: CT CHEST WITH CONTRAST REASON FOR EXAM: Male, 79 years old. LUNG /PROSTATE CA, ANEMIA, HYPOTENSIVE, POST RADIATION FIBROSIS-ON O2, LAST CHEMO AND RAD TX 2018, CHF, COPD, CAD WITH CABG, PACEMAKER RADIATION DOSAGE (If Supplied By Facility): CTDIvol = ( 19.37 ) mGy, DLP = ( 1120.8 ) mGycm TECHNIQUE: Transaxial imaging was performed following intravenous administration of IV 100mL Isovue-300. Individualized dose optimization techniques were used for this CT. COMPARISON: 07/15/2019. FINDINGS: There is hyperinflation of the lungs consistent with chronic obstructive lung disease (COPD). Diffuse interstitial thickening and fibrosis seen. Stable platelike scarring across the right upper lobe. Since prior study patient has developed a small right pleural effusion and very small left pleural effusion. Stable probable fibrosis in and around the right hilum. Scattered focal areas of irregular pulmonary opacity are seen in both lower lung amador which may be areas of scarring and/or atelectasis. Less likely would be small neoplastic pulmonary nodules such as along the posterior left lung base and the periphery of the lower left lung. There is no demonstrated pleural abnormality. Normal heart and pericardium. There are calcifications of the coronary arteries. Pacemaker is seen with leads terminating in the right atrium and right ventricle. No gross mediastinal mass or adenopathy. Normal enhanced pulmonary arteries. Normal aorta arch and descending thoracic aorta. Normal osseous structures. See separate report for CT of the abdomen. CT/Chest WITH Contrast IMPRESSION: Bilateral pleural effusions, new since previous exam. COPD with diffuse interstitial fibrosis and focal areas of scarring. Probable atelectasis and/or scarring especially in both lower lung zones. Small neoplastic nodules are not excluded. Electronically Signed: Petros Alarcon MD at 18:18 EDT , Service support ,
--- NOTE | 2019-12-18 15:56 | CT_ITS ---
STUDY: CT ABDOMEN WITH CONTRAST REASON FOR EXAM: Male, 79 years old. LUNG /PROSTATE CA, ANEMIA, HYPOTENSIVE, POST RADIATION FIBROSIS-ON O2, LAST CHEMO AND RAD TX 2018, CHF, COPD, CAD WITH CABG, PACEMAKER RADIATION DOSAGE (If Supplied By Facility): CTDIvol = ( 19.37 ) mGy, DLP = ( 1120.8 ) mGycm TECHNIQUE: Transaxial images were obtained post I.V. administration of IV 100mL Isovue-300, and without oral contrast. Sagittal and coronal images were reconstructed. Individualized dose optimization techniques were used for this CT. COMPARISON: 07/15/2019. FINDINGS: See separate report for CT of the chest. Normal liver. There are multiple gallstones. Normal spleen. Normal pancreas. Normal bilateral adrenal glands. No acute abnormalities of the kidneys. Stable 4 mm nonobstructing stone of the right upper pole. Stable nonobstructing 3 mm left lower pole stone. Stable bilateral small cysts. Evaluation of the GI tract is limited by absence of oral contrast. Cannot exclude stomach wall thickening. No dilated loops of bowel or evidence for obstruction. Cannot exclude segmental thickening of the sharma of the small or large bowel. Cannot exclude enteritis or colitis. Moderate diffuse fecal retention. There is diffuse atherosclerotic calcification of the abdominal aorta, without a demonstrated aneurysm. Normal inferior vena cava. Normal retroperitoneum. Normal abdominal wall. Degenerative disc disease at L5-S1. Otherwise negative Osseous structures. CT/Abdomen WITH IV Contrast IMPRESSION: No acute or remote or significant change. Cholelithiasis. Stable bilateral nonobstructing renal stones. Evaluate GI tract is limited by absence of oral contrast. Electronically Signed: Petros Alarcon MD at 18:10 EDT , Service support ,
[2019-12-18 16:08] LABS: Hematocrit 31.7 % (40-54); Hemoglobin 8.7 g/dL (13.0-16.5); POSITIVE COUNT YES
[2019-12-18 16:46] LABS: LDH 204 U/L (87-241)
[2019-12-18] MEDS: Pravastatin 40 MG Tablet PO (21:01)
[2019-12-18] MEDS: Lisinopril 5 MG Tablet PO (21:01)
[2019-12-19] VITALS (13 sets, daily range): BP systolic 114–142; BP diastolic 58–71; PULSE 67–98; RESP 16–20; TEMP 36.8–36.9; O2SAT 95–100
[2019-12-19] MEDS: Ipratropium/Albuterol Sulfate 3 ML AMPUL.NEB INHALATION ×5 (03:03→20:09)
[2019-12-19 05:54] LABS: Absolute Lymphocyte Count 0.48 X10^3/uL (0.83-4.51); Absolute Neutrophil Count 2.6 X10^3/uL (2.0-7.7); Basophil# 0.01 X10^3/uL; Basophil% 0.3 % (0-1); Eosinophil# 0.03 X10^3/uL; Eosinophils% 0.9 % (0-5); Hematocrit 29.3 % (40-54); Lymphocyte # 0.48 X10^3/ul (4.0); Lymphocyte % 14.3 % (19-41); Mean Corp Hgb Conc 27.3 g/dL (32-36); Mean Corpuscular Hgb 20.9 pg (27.0-32.0); Mean Corpuscular Volume 76.7 fL (80-94); Monocyte# 0.26 X10^3/uL; Monocyte% 7.8 % (0-10); NRBC Flagged by Analyzer 0 % (0-5); Neutrophil # 2.55 X10^3/uL (2.7-7.7); Neutrophil % 76.1 % (47-70); POSITIVE COUNT YES; POSITIVE DIFFERENTIAL YES; POSITIVE MORPHOLOGY YES; RBC Distribution Width CV 25.1 % (11.6-14.6); Red Blood Count 3.82 M/mm3 (4.6-6.2); White Blood Count 3.4 K/mm3 (4.4-11.0)
[2019-12-19 05:59] LABS: Differential Indicated SCAN CRITERIA MET; Platelet Count 47 K/mm3 (150-450)
[2019-12-19 06:21] LABS: Anion Gap 5 (5-15); BUN 16 mg/dL (7-18); BUN/Creat Ratio 16.5 RATIO (10-20); Calcium,Total 7.9 mg/dL (8.5-10.1); Chloride 107 mmol/L (98-107); Creatinine, Serum 0.97 mg/dL (0.70-1.30); EST Glomerular Filtration Rate 79 mL/min (>60); Est Glom Filt Rate - Afr Amer 96 mL/min (>60); Estimated Creatinine Clearance 66.67 ml/min; Glucose 104 mg/dL (74-106); Potassium 3.7 mmol/L (3.5-5.1); Sodium Level 141 mmol/L (136-145)
[2019-12-19] MEDS: Sodium Chloride 0.65% 1 SPRAY SPRAY.BTL 2 SPRAY NASAL ×3 (06:28→22:01)
[2019-12-19 06:39] LABS: Anisocytosis 2+; Hypochromasia 2+; Microcytosis 2+; Platelet Estimate MKD DEC (ADEQ); Polychromasia RARE
[2019-12-19 06:40] LABS: Spherocyte RARE
--- NOTE | 2019-12-19 07:30 | PN_ITS ---
Patient Problems: Active and Suspected Problems (Last Reviewed 12/15/19 @ 13:40 by Paty Gallego) Pancytopenia (Acute) History of malignant neoplasm of lung (Acute) Subjective: The patient was seen and examined at the bedside this morning. Events from the last 24 hours have been reviewed. The patient is currently afebrile, hemody namically stable and maintaining appropriate oxygen saturations on 2 L/min via nasal cannula. The patient did receive transfusion of 1 additional unit of packed red blood cells yesterday. His hemoglobin improved to 8.7 posttransfusion. This morning, hemoglobin is down to 8.0. Patient also remains thrombocytopenic with a platelet count of 47,000. The patient denies a presence of abdominal pain, but does report the continued presence of a cough. Objective: The patient's most recent lab work, culture data and imaging studies have all been personally reviewed. Stool for occult blood was positive. Respiratory viral panel was negative. Sputum Gram stain was positive for pansensitive Serratia marcescens. Surface echocardiogram revealed a moderately dilated LV wi th an ejection fraction of 25 to 30%. There was severe global hypokinesis of the LV with moderate global RV systolic dysfunction. Right ventricular systolic pressure was estimated to be 40 mmHg. - Physical Exam Vitals/I&O's: Vital Signs Temp Pulse Resp BP Pulse Ox 98.4 F 70 20 H 120/62 95 12/19/19 03:00 12/19/19 03:03 12/19/19 03:03 12/19/19 03:00 12/19/19 03:00 Oxygen Flow Rate (L/min) 2 Oxygen Delivery Method Nasal Cannula Weight: 180 lb 12.465 oz Body Mass Index (BMI) 24.2 Intake and Output for Last 24 Hours 12/17/19 12/18/19 12/19/19 23:59 23:59 23:59 Intake Total 2280 / 2280 1480 / 1480 200 / 200 Output Total 2850 / 2850 1725 / 1725 350 / 350 Balance -570 / -570 -245 / -245 -150 / -150 General: Alert, Cooperative, No apparent distress HEENT: Atraumatic, PERRLA, Normocephalic Oral: Moist Mucosa, No Gingival or Mucosal Lesions/ Ulcerations Neck: Supple, No Nodes, Trachea Midline Lungs: No rhonchi, No wheeze, No rales, Diminished Cardiovascular: Regular rate, Regular Rhythm, Normal S1, Normal S2, No murmurs Abdomen: Bowel Sounds Present, Soft, Non Tender Extremities: No clubbing, No cyanosis, No edema Skin: No breakdown Musculoskeletal: No Tenderness to Palpation of Joints or Extremities Lymphatic: No Cervical, Supraclavicular, or Inguinal Adenopathy Neurological: Cranial nerves II-XII grossly intact, Neuro grossly intact Psych/Mental Status: Alert and oriented to time, place, person, mood and affect Labs (Last 48 Hours) 12/15/19 12/16/19 12/17/19 16:30 06:30 08:20 WBC 5.3 RBC 4.25 L Hgb 8.6 L Hct 32.0 L MCV 75.3 L MCH 20.2 L MCHC 26.9 L RDW Std Deviation 62.4 H RDW Coeff of Khadijah 23.8 H Plt Count 59 L Immature Gran % (Auto) Neut % (Auto) Lymph % (Auto) [place] % (Auto) Eos % (Auto) Baso % (Auto) Absolute Neuts (auto) Absolute Lymphs (auto) Nucleated RBC % Differential Comment SCANNED Diff Path Review Reviewed Platelet Estimate Polychromasia Hypochromasia Anisocytosis Microcytosis Spherocytes Sodium Potassium Chloride Carbon Dioxide Anion Gap BUN Creatinine Estim Creat Clear Calc Est GFR (MDRD) Af Amer Est GFR (MDRD) Non-Af BUN/Creatinine Ratio Glucose Calcium Lactate Dehydrogenase Total Protein (PEP) Total PSA Vitamin B12 Folate IgG IgA IgM Albumin (OSCAR) Albumin/Globulin (OSCAR) Nabin-1-Nuhtwjrjh OSCAR Cghes-1-Falbzxxfh OSCAR Beta-Globulins (OSCAR) Gamma Globulins (OSCAR) OSCAR M-Silas Free [place] LC, Quant Free Lambda LC, Quant Free [place]/Lambda Ratio Crossmatch See Detail 12/18/19 12/18/19 12/18/19 05:49 05:49 05:49 WBC 3.5 L RBC 3.55 L Hgb 6.9 L Hct 26.6 L MCV 74.9 L MCH 19.4 L MCHC 25.9 L RDW Std Deviation 64.6 H RDW Coeff of Khadijah 24.2 H Plt Count 50 L* Immature Gran % (Auto) 0.600 Neut % (Auto) 76.1 H Lymph % (Auto) 13.5 L [place] % (Auto) 9.5 Eos % (Auto) 0.3 Baso % (Auto) 0.0 Absolute Neuts (auto) 2.6 Absolute Lymphs (auto) 0.47 L Nucleated RBC % 0 Differential Comment Diff Path Review May foll Platelet Estimate MKD DEC Polychromasia RARE Hypochromasia 2+ Anisocytosis 2+ Microcytosis 3+ Spherocytes 1+ H Sodium 141 Potassium 4.0 Chloride 109 H Carbon Dioxide 27.0 Anion Gap 5 BUN 18 Creatinine 0.98 Estim Creat Clear Calc 65.99 Est GFR (MDRD) Af Amer 94 Est GFR (MDRD) Non-Af 78 BUN/Creatinine Ratio 18.3 Glucose 100 Calcium 8.0 L Lactate Dehydrogenase Total Protein (PEP) Total PSA Vitamin B12 Folate 10.50 IgG IgA IgM Albumin (OSCAR) Albumin/Globulin (OSCAR) Ufpml-2-Leltbgtvo OSCAR Sircx-1-Bjhturvea OSCAR Beta-Globulins (OSCAR) Gamma Globulins (OSCAR) OSCAR M-Silas Free [place] LC, Quant Free Lambda LC, Quant Free [place]/Lambda Ratio Crossmatch 12/18/19 12/18/19 12/19/19 05:49 15:58 05:22 WBC RBC Hgb 8.7 L Hct 31.7 L MCV MCH MCHC RDW Std Deviation RDW Coeff of Khadijah Plt Count Immature Gran % (Auto) Neut % (Auto) Lymph % (Auto) [place] % (Auto) Eos % (Auto) Baso % (Auto) Absolute Neuts (auto) Absolute Lymphs (auto) Nucleated RBC % Differential Comment Diff Path Review Platelet Estimate Polychromasia Hypochromasia Anisocytosis Microcytosis Spherocytes Sodium 141 Potassium 3.7 Chloride 107 Carbon Dioxide 29.0 Anion Gap 5 BUN 16 Creatinine 0.97 Estim Creat Clear Calc 66.67 Est GFR (MDRD) Af Amer 96 Est GFR (MDRD) Non-Af 79 BUN/Creatinine Ratio 16.5 Glucose 104 Calcium 7.9 L Lactate Dehydrogenase 204 Total Protein (PEP) Total PSA 6.40 H Vitamin B12 Folate IgG IgA IgM Albumin (OSCAR) Albumin/Globulin (OSCAR) Ecxdo-5-Puoswqcbg OSCAR Qsfph-5-Widswxsnu OSCAR Beta-Globulins (OSCAR) Gamma Globulins (OSCAR) OSCAR M-Silas Free [place] LC, Quant Free Lambda LC, Quant Free [place]/Lambda Ratio Crossmatch 12/19/19 12/19/19 12/19/19 05:22 05:22 05:22 WBC 3.4 L RBC 3.82 L Hgb 8.0 L Hct 29.3 L MCV 76.7 L MCH 20.9 L MCHC 27.3 L D RDW Std Deviation 68.0 H RDW Coeff of Kahdijah 25.1 H Plt Count 47 L* Immature Gran % (Auto) 0.600 Neut % (Auto) 76.1 H Lymph % (Auto) 14.3 L [place] % (Auto) 7.8 Eos % (Auto) 0.9 Baso % (Auto) 0.3 Absolute Neuts (auto) 2.6 Absolute Lymphs (auto) 0.48 L Nucleated RBC % 0 Differential Comment Diff Path Review May foll Platelet Estimate MKD DEC Polychromasia RARE Hypochromasia 2+ Anisocytosis 2+ Microcytosis 2+ Spherocytes RARE H Sodium Potassium Chloride Carbon Dioxide Anion Gap BUN Creatinine Estim Creat Clear Calc Est GFR (MDRD) Af Amer Est GFR (MDRD) Non-Af BUN/Creatinine Ratio Glucose Calcium Lactate Dehydrogenase Total Protein (PEP) Pending Total PSA Vitamin B12 Pending Folate IgG Pending IgA Pending IgM Pending Albumin (OSCAR) Pending Albumin/Globulin (OSCAR) Pending Ibsjh-5-Saxnrtvet OSCAR Pending Ramug-3-Eijtmotkb OSCAR Pending Beta-Globulins (OSCAR) Pending Gamma Globulins (OSCAR) Pending OSCAR M-Silas Pending Free [place] LC, Quant Pending Free Lambda LC, Quant Pending Free [place]/Lambda Ratio Pending Crossmatch Microbiology 12/15/19 20:31 Blood Culture (Wb) - Left Wrist Blood Culture - Preliminary No growth in 48 hours. 12/15/19 20:40 Blood Culture (Wb) - Anticubital Right Blood Culture - Preliminary No growth in 48 hours. 12/16/19 01:00 Urine, Clean Catch Urine Culture - Final Mixed Gram Positive Organisms 12/15/19 20:40 Sputum, Expectorated/Coughed Gram Stain - Final 12/15/19 20:40 Sputum, Expectorated/[place] Clinical Impression(s) from Imaging Studies Chest X-Ray 12/15/19 15:45 IMPRESSION: Stable examination with increased markings in the right upper lobe and right perihilar region suggestive of postradiation fibrosis. Electronically Signed: Dangelo Felicity, at 16:02 EDT , Service support , Abdomen CT 12/18/19 15:56 IMPRESSION: No acute or remote or significant change. Cholelithiasis. Stable bilateral nonobstructing renal stones. Evaluate GI tract is limited by absence of oral contrast. Electronically Signed: Petros Alarcon MD at 18:10 EDT , Service support , Chest CT 12/18/19 15:56 IMPRESSION: Bilateral pleural effusions, new since previous exam. COPD with diffuse interstitial fibrosis and focal areas of scarring. Probable atelectasis and/or scarring especially in both lower lung zones. Small neoplastic nodules are not excluded. Electronically Signed: Petros Alarcon MD at 18:18 EDT , Service support , d Respiratory Culture - Final Serratia marcescens Gram positive mayra Current Medications Acetaminophen (Tylenol) 650 mg PO Q6H PRN PRN PRN Reason: Pain Score 1-10/Temp > 100.7 F Albuterol Sulfate (Ventolin Aerosols) 2.5 mg INHALATION Q2H PRN PRN PRN Reason: SHORTNESS OF BREATH Albuterol/Ipratropium (Duoneb) 3 ml INHALATION Q4H.RT [facility] Last Admin: 12/19/19 07:07 Dose: 3 ml Documented by: Benzonatate (Tessalon Perle) 200 mg PO TID PRN PRN PRN Reason: COUGH Carvedilol (Coreg) 12.5 mg PO BID [facility] Last Admin: 12/18/19 21:01 Dose: 12.5 mg Documented by: Cholecalciferol (Vitamin D (25mcg)) 1,000 unit PO DAILY [facility] Last Admin: 12/18/19 09:59 Dose: 1,000 unit Documented by: Fluticasone Propionate (Flonase Nasal Capay) 1 spray NASAL BID [facility] Last Admin: 12/18/19 21:02 Dose: 1 spray Documented by: Furosemide (Lasix) 20 mg IV X1 PRN PRN Reason: between transfusion Furosemide (Lasix) 40 mg PO DAILY [facility] Last Admin: 12/18/19 09:58 Dose: 40 mg Documented by: Glucagon () 1 mg IM .X1 PRN PRN Reason: Hypoglycemia Sodium Chloride () 250 mls @ 15 mls/hr IV .[id number] PRN PRN Reason: Saline Flush Sodium Chloride () 250 mls @ 15 mls/hr IV .[id number] PRN PRN Reason: Additional IVPB Infusion Dextrose (Dextrose 10%-Water) 250 mls @ 999 mls/hr IV .Q16M PRN; Protocol PRN Reason: HYPOGLYCEMIA Pantoprazole Sodium 40 mg/ (Sodium Chloride) 110 mls @ 330 mls/hr IV Q12 [facility] Last Infusion: 12/18/19 21:20 Dose: Infused Documented by: Ceftriaxone Sodium 2 gm/ (Sodium Chloride) 50 mls @ 100 mls/hr IV Q24 [facility] Last Infusion: 12/18/19 13:43 Dose: Infused Documented by: Fluconazole (Diflucan) 200 mg in 100 mls @ 100 mls/hr IV Q24 [facility] Last Infusion: 12/18/19 16:15 Dose: Infused Documented by: Lisinopril (Zestril) 5 mg PO QHS [facility] Last Admin: 12/18/19 21:01 Dose: 5 mg Documented by: Nitroglycerin (Nitrostat) 0.4 mg SUBLINGUAL Q5M PRN PRN Reason: CARDIAC/CHEST PAIN Nystatin (Nystatin) 500,000 unit PO 4X/DAY [facility] Last Admin: 12/18/19 21:01 Dose: 500,000 unit Documented by: Oxycodone HCl (Oxyir) 5 mg PO Q4H PRN PRN PRN Reason: Pain Score 4-5/10 Polyethylene Glycol (Miralax) 17 gm PO DAILY [facility] Last Admin: 12/18/19 09:59 Dose: Not Given Documented by: Pravastatin Sodium (Pravachol) 40 mg PO QHS [facility] Last Admin: 12/18/19 21:01 Dose: 40 mg Documented by: Prednisone () 10 mg PO DAILYCM [facility] Last Admin: 12/18/19 09:58 Dose: 10 mg Documented by: Prochlorperazine Edisylate (Compazine Iv) 5 mg IV Q4H PRN PRN PRN Reason: Breakthrough Nausea/Vomiting Psyllium Hydrophilic Mucilloid (Metamucil) 1 packet PO DAILY PRN PRN PRN Reason: Constipation Senna/Docusate Sodium (Senokot-S, Yahaira-Colace) 2 tablet PO BID PRN PRN Reason: Constipation Sodium Chloride () 10 - 40 ml IV UD PRN PRN Reason: SALINE FLUSH Last Admin: 12/16/19 18:08 Dose: 10 ml Documented by: Sodium Chloride ([place] Nasal Capay) 2 spray NASAL TID [facility] Last Admin: 12/19/19 06:28 Dose: 2 spray Documented by: Medical Necessity - Tobacco Use Smoking Status: Former smoker Assessment/Plan All Active Problems (Last Reviewed 12/15/19 @ 13:40 by Paty Gallego) Pancytopenia (Acute) History of malignant neoplasm of lung (Acute) COPD (chronic obstructive pulmonary disease) (Acute) Prostate cancer (Acute) Hx of CABG (Resolved) Enlarged lymph nodes (Acute) 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) Presence of automatic implantable cardioverter-defibrillator (Acute) Malignant neoplasm of unspecified part of unspecified bronchus or lung (Acute) Immune thrombocytopenic purpura (Acute) Essential (primary) hypertension (Acute) Atherosclerotic heart disease of [place] coronary artery without angina pectoris (Acute) H/O hernia repair (Resolved) History of basal cell cancer (Acute) History of IA (myocardial infarction) (Acute) Cataract (Acute) BPH loc w/o ur obs/LUTS (Acute) Esophageal reflux (Acute) Osteoarthrosis (Acute) History of cardiac cath (Resolved) port placement (Acute) s/p intrajugular port placement (Resolved) History of removal of Port-a-Cath (Resolved ~09/2018) Chemotherapy management, encounter for (Resolved) Encounter for insertion of venous access port (Resolved) RECOMMENDATIONS: 1. Continue PPI therapy. 2. Diflucan for esophageal candidiasis. 3. Continue bronchodilators. Continue ceftriaxone as ordered. 4. Wean supplemental oxygen as tolerated. 5. Encourage incentive spirometer use and mobilize patient as tolerated. 6. Continue to check H&H daily. Plan to transfuse if hemoglobin drops below 7 g/dL. 7. Additional work-up for anemia per general surgery recommendations. IMPRESSIONS: 1. Symptomatic anemia/chronic thrombocytopenia (immune thrombocytopenic purpura) The patient was admitted to the hospital with symptomatic anemia and a hemoglobin of 5.3 g/dL. There were no overt signs of blood loss at this time. 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 The patient initially stabilized following endoscopic evaluation. However, blood counts again fell yesterday. The patient is once again receiving transfusion of blood products. Recommend continuing to check H&H daily. Transfuse if hemoglobin is less than 7 g/dL. Consider obtaining a bleeding scan, if the patient's blood counts continue to drop. 2. 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 Villareal of oncology. 3. History of COPD/emphysema/chronic hypoxemic respiratory failure The patient will be continued on scheduled bronchodilators and supplemental oxygen. Antibiotics will be continued to address the Serratia marcescens isolated on sputum culture. Continue baseline prednisone dose. 4. History of coronary artery disease status post CABG/chronic systolic heart failure Complicates care, management, recovery and prognosis. Cardiology is currently following to assist with medical management. This note was generated with [employer] dictation software. It may contain incorrect words, spelling, and punctuation that were not noted in checking the note before signing. Inpatient E&M: 92869 Subs Hosp L2
[2019-12-19] MEDS: predniSONE 10 MG Tablet PO (08:19)
--- NOTE | 2019-12-19 09:06 | PN_ITS ---
Patient Problems: Active and Suspected Problems (Last Reviewed 12/15/19 @ 13:40 by Paty Gallego) Pancytopenia (Acute) History of malignant neoplasm of lung (Acute) Reason for Visit: Follow-up for pancytopenia. Generalized swelling/edema. Edema has improved. Vitals/I&O's: Vital Signs Temp Pulse Resp BP Pulse Ox 98.3 F 72 18 117/58 L 97 12/19/19 08:09 12/19/19 08:09 12/19/19 08:09 12/19/19 08:09 12/19/19 08:09 Oxygen Flow Rate (L/min) 2 Oxygen Delivery Method Nasal Cannula Weight: 180 lb 12.465 oz Body Mass Index (BMI) 24.2 Intake and Output for Last 24 Hours 12/17/19 12/18/19 12/19/19 23:59 23:59 23:59 Intake Total 2280 / 2280 1480 / 1480 200 / 200 Output Total 2850 / 2850 1725 / 1725 350 / 350 Balance -570 / -570 -245 / -245 -150 / -150 General: Alert, Oriented x3, Cooperative HEENT: Atraumatic, PERRLA, EOMI, Normocephalic Neck: Supple, No JVD, Negative Carotid Bruits Lungs: No rhonchi, No wheeze, No rales, Diminished Cardiovascular: Regular rate, Normal S1, Normal S2, Murmur Abdomen: Bowel Sounds Present, Soft, Non Tender, Non-Distended Extremities: Capillary Refill Less than 3 Seconds, Edema - Upper extremity edema has improved. Skin: No rashes, No breakdown Musculoskeletal: No Tenderness to Palpation of Joints or Extremities, Arthritic Changes Neurological: Cranial nerves II-XII grossly intact, Deep Tendon Reflexes 2+/4 and Symmetrical, Neuro grossly intact Psych/Mental Status: Normal Affect, Appropriate Microbiology Past 72 Hours 12/15/19 20:31 Blood Culture (Wb) - Left Wrist Blood Culture - Preliminary No growth in 48 hours. 12/15/19 20:40 Blood Culture (Wb) - Anticubital Right Blood Culture - Preliminary No growth in 48 hours. 12/16/19 01:00 Urine, Clean Catch Urine Culture - Final Mixed Gram Positive Organisms 12/15/19 20:40 Sputum, Expectorated/Coughed Gram Stain - Final 12/15/19 20:40 Sputum, Expectorated/Coughed Respiratory Culture - Final Serratia marcescens Gram positive mayra 12/16/19 Unknown Stool Stool Occult Blood (BARBARA) - Final Occult Blood Positive 12/15/19 19:30 Mucosa - Nasopharyngeal Respiratory Panel (PCR) - Final Laboratory Results 12/15/19 16:30: Crossmatch See Detail 12/18/19 05:49: Folate 10.50 12/18/19 05:49: Lactate Dehydrogenase 204, Total PSA 6.40 H 12/18/19 15:58: Hgb 8.7 L, Hct 31.7 L 12/19/19 05:22: Sodium 141, Potassium 3.7, Chloride 107, Carbon Dioxide 29.0, Anion Gap 5, BUN 16, Creatinine 0.97, Estim Creat Clear Calc 66.67, Est GFR (MDRD) Af Amer 96, Est GFR (MDRD) Non-Af 79, BUN/Creatinine Ratio 16.5, Glucose 104, Calcium 7.9 L 12/19/19 05:22: WBC 3.4 L, RBC 3.82 L, Hgb 8.0 L, Hct 29.3 L, MCV 76.7 L, MCH 20.9 L, MCHC 27.3 L D, RDW Std Deviation 68.0 H, RDW Coeff of Khadijah 25.1 H, Plt Count 47 L*, Immature Gran % (Auto) 0.600, Neut % (Auto) 76.1 H, Lymph % (Auto) 14.3 L, Davison % (Auto) 7.8, Eos % (Auto) 0.9, Baso % (Auto) 0.3, Absolute Neuts (auto) 2.6, Absolute Lymphs (auto) 0.48 L, Nucleated RBC % 0, Diff Path Review May foll, Platelet Estimate MKD DEC, Polychromasia RARE, Hypochromasia 2+, Anisocytosis 2+, Microcytosis 2+, Spherocytes RARE H 12/19/19 05:22: Vitamin B12 Pending 12/19/19 05:22: Total Protein (PEP) Pending, IgG Pending, IgA Pending, IgM Pending, Albumin (OSCAR) Pending, Albumin/Globulin (OSCAR) Pending, [id number] OSCAR Pending, Guhfp-[id number] OSCAR Pending, Beta-Globulins (OSCAR) Pending, Gamma Globulins (OSCAR) Pending, OSCAR M-Silas Pending, Free [place] LC, Quant Pending, Free Lambda LC, Quant Pending, Free [place]/Lambda Ratio Pending Current Medications Acetaminophen (Tylenol) 650 mg PO Q6H PRN PRN PRN Reason: Pain Score 1-10/Temp > 100.7 F Albuterol Sulfate (Ventolin Aerosols) 2.5 mg INHALATION Q2H PRN PRN PRN Reason: SHORTNESS OF BREATH Albuterol/Ipratropium (Duoneb) 3 ml INHALATION Q4H.RT [facility] Last Admin: 12/19/19 07:07 Dose: 3 ml Documented by: Benzonatate (Tessalon Perle) 200 mg PO TID PRN PRN PRN Reason: COUGH Carvedilol (Coreg) 12.5 mg PO BID [facility] Last Admin: 12/18/19 21:01 Dose: 12.5 mg Documented by: Cholecalciferol (Vitamin D (25mcg)) 1,000 unit PO DAILY [facility] Last Admin: 12/18/19 09:59 Dose: 1,000 unit Documented by: Fluticasone Propionate (Flonase Nasal [place]) 1 spray NASAL BID [facility] Last Admin: 12/18/19 21:02 Dose: 1 spray Documented by: Furosemide (Lasix) 20 mg IV X1 PRN PRN Reason: between transfusion Furosemide (Lasix) 40 mg PO DAILY [facility] Last Admin: 12/18/19 09:58 Dose: 40 mg Documented by: Glucagon () 1 mg IM .X1 PRN PRN Reason: Hypoglycemia Sodium Chloride () 250 mls @ 15 mls/hr IV .[id number] PRN PRN Reason: Saline Flush Sodium Chloride () 250 mls @ 15 mls/hr IV .[id number] PRN PRN Reason: Additional IVPB Infusion Dextrose (Dextrose 10%-Water) 250 mls @ 999 mls/hr IV .Q16M PRN; Protocol PRN Reason: HYPOGLYCEMIA Pantoprazole Sodium 40 mg/ (Sodium Chloride) 110 mls @ 330 mls/hr IV Q12 [facility] Last Infusion: 12/18/19 21:20 Dose: Infused Documented by: Ceftriaxone Sodium 2 gm/ (Sodium Chloride) 50 mls @ 100 mls/hr IV Q24 [facility] Last Infusion: 12/18/19 13:43 Dose: Infused Documented by: Fluconazole (Diflucan) 200 mg in 100 mls @ 100 mls/hr IV Q24 [facility] Last Infusion: 12/18/19 16:15 Dose: Infused Documented by: Lisinopril (Zestril) 5 mg PO QHS [facility] Last Admin: 12/18/19 21:01 Dose: 5 mg Documented by: Nitroglycerin (Nitrostat) 0.4 mg SUBLINGUAL Q5M PRN PRN Reason: CARDIAC/CHEST PAIN Nystatin (Nystatin) 500,000 unit PO 4X/DAY [facility] Last Admin: 12/18/19 21:01 Dose: 500,000 unit Documented by: Oxycodone HCl (Oxyir) 5 mg PO Q4H PRN PRN PRN Reason: Pain Score 4-5/10 Polyethylene Glycol (Miralax) 17 gm PO DAILY [facility] Last Admin: 12/18/19 09:59 Dose: Not Given Documented by: Pravastatin Sodium (Pravachol) 40 mg PO QHS [facility] Last Admin: 12/18/19 21:01 Dose: 40 mg Documented by: [facility] Last Admin: 12/19/19 08:19 Dose: 10 mg Documented by: Prochlorperazine Edisylate (Compazine Iv) 5 mg IV Q4H PRN PRN PRN Reason: Breakthrough Nausea/Vomiting Psyllium Hydrophilic Mucilloid (Metamucil) 1 packet PO DAILY PRN PRN PRN Reason: Constipation Senna/Docusate Sodium (Senokot-S, Yahaira-Colace) 2 tablet PO BID PRN PRN Reason: Constipation Sodium Chloride () 10 - 40 ml IV UD PRN PRN Reason: SALINE FLUSH Last Admin: 12/16/19 18:08 Dose: 10 ml Documented by: Sodium Chloride ([place] Nasal [place]) 2 spray NASAL TID [facility] Last Admin: 12/19/19 06:28 Dose: 2 spray Documented by: STROKE Vital Signs/Narrative: Vital Signs Temp Pulse Resp BP Pulse Ox 12/19/19 08:09 98.3 F 72 18 117/58 L 97 12/19/19 08:05 95 12/19/19 07:30 81 18 12/19/19 07:27 72 Medical Necessity - Tobacco Use Smoking Status: Former smoker Assessment/Plan All Active Problems (Last Reviewed 12/15/19 @ 13:40 by Paty Gallego) Pancytopenia (Acute) History of malignant neoplasm of lung (Acute) COPD (chronic obstructive pulmonary disease) (Acute) Prostate cancer (Acute) Hx of CABG (Resolved) Enlarged lymph nodes (Acute) detention current use of anticoagulant (Acute) Presence of automatic implantable cardioverter-defibrillator (Acute) Malignant neoplasm of unspecified part of unspecified bronchus or lung (Acute) Immune thrombocytopenic purpura (Acute) Essential (primary) hypertension (Acute) Atherosclerotic heart disease of [place] coronary artery without angina pectoris (Acute) H/O hernia repair (Resolved) History of basal cell cancer (Acute) History of [place] (myocardial infarction) (Acute) Cataract (Acute) BPH loc w/o ur obs/LUTS (Acute) Esophageal reflux (Acute) Osteoarthrosis (Acute) History of cardiac cath (Resolved) port placement (Acute) s/p intrajugular port placement (Resolved) History of removal of Port-a-Cath (Resolved ~09/2018) Chemotherapy management, encounter for (Resolved) Encounter for insertion of venous access port (Resolved) The patient is a 79 year old M with multiple comorbidities including coronary artery disease status post two-vessel CABG, 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 Tate for hypotension, dyspnea on exertion and diffuse edema. 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 1. Severe anemia with symptomatic hypotension, with anasarca most probably from bone marrow disorder complicated with possible GI bleed: Patient is being admitted in ICU. 2 units of PRBC is ordered and transfused by ER physician. No clinical symptoms and signs of GI bleed. Admitting hemoglobin 5.3 improved to 8.3 after transfusion. On 12/16 stool for occult blood positive. Patient had EGD and colonoscopy in the morning.EGD showed diffuse white plaques entire esophagus suggestive of diffuse esophageal candidiasis. Colonoscopy showed nonbleeding colonic angiectasia and clips were placed. Exam was otherwise negative. There was no telltale sign of bleeding with no masses or polyps. 12/17: Hemoglobin again dropped to 6.9 from 8.6. Monitor PRBC ordered. Patient has chronic thrombocytopenia, possible ITP slowly decreasing from 80,000 in April 24 18-50,000 today; etiology unclear but seems probably from his spleen dysfunction. He follows Dr. Tineo for history of lung cancer, prostate cancer and basal cell cancer. Was told that his spleen is not functioning well and pro bably responsible for thrombocytopenia. Discussed with Dr. Anguiano today. 1 unit of PRBC ordered. Ferritin is 7, iron 20 suggestive of iron deficiency anemia. Continue Diflucan and nystatin swish and swallow. 12/18: H&H is stable at 8.0 although it went up from 6.9-8.7. Monitor H&H in evening today. CBC tomorrow a.m. Hematology consult reviewed and appreciated. Total of 4 units of RBC transfused. 2. COPD with chronic hypoxic respiratory failure, on 3 L of home oxygen on ambulation; possible right upper lobe pneumonia.: Earlier during oxygen walking test as an outpatient, patient recommended 3 L of oxygen on ambulation. On bronchodilator. Bronchopulmonary hygiene with chest physiotherapy and Pep and incentive spirometry. Discussed with websphere portal architect On baseline 10 mg prednisone. We will keep prednisone 10 mg daily. Sputum culture is growing Serratia marcescens and diphtheroids suggestive of possible right upper lobe pneumonia. Sensitive to ceftriaxone and is being continued. 3. Right upper lobe lung cancer status post chemoradiation with radiation changes on x-ray: Patient follows Dr. Tate. 4. Cardiac conditions: Coronary artery disease status post two-vessel CABG, p ossible heart failure status post AICD: Patient follows hat braider at [facility] . EKG shows atrial sensed ventricular paced rhythm at 75 bpm. Echo on 12/16/2019 Interpretation Summary Moderately dilated left ventricle. The estimated ejection fraction is 25-30 %. There is severe global hypokinesis of the left ventricle. Severely dilated right ventricle. Moderate global right ventricular systolic dysfunction. The left atrium is mildly enlarged. Mild (1+) posteriorly directed mitral valve insufficiency. Moderate (2+) tricuspid valve insufficiency. Right ventricular systolic pressure estimated to be 40 mmHg. Mild pulmonary hypertension. 5. Multiple comorbidities including hypertension, ITP, dyslipidemia, BPH, prostate cancer, esophageal reflux: 6. DVT prophylaxis bilateral SCDs Advanced directive: Full code. Total time of the visit including total time spent in counseling or coordination of care, (more than 50% of the total time, spent in obtaining medical information from nurses and other ancillary care providers), coordination of care with oracle application consultant, discussion with oncologist and patient , review of labs and imaging is 30 minutes Microbiology Past 72 Hours 12/15/19 20:31 Blood Culture (Wb) - Left Wrist Blood Culture - Preliminary No growth in 48 hours. 12/15/19 20:40 Blood Culture (Wb) - Anticubital Right Blood Culture - Preliminary No growth in 48 hours. 12/16/19 01:00 Urine, Clean Catch Urine Culture - Final Mixed Gram Positive Organisms 12/15/19 20:40 Sputum, Expectorated/Coughed Gram Stain - Final 12/15/19 20:40 Sputum, Expectorated/Coughed Respiratory Culture - Final Serratia marcescens Gram positive mayra 12/16/19 Unknown Stool Stool Occult Blood (BARBARA) - Final Occult Blood Positive Laboratory Results 12/18/19 05:49: Folate 10.50 12/18/19 05:49: Lactate Dehydrogenase 204, Total PSA 6.40 H 12/18/19 15:58: Hgb 8.7 L, Hct 31.7 L 12/19/19 05:22: Sodium 141, Potassium 3.7, Chloride 107, Carbon Dioxide 29.0, Anion Gap 5, BUN 16, Creatinine 0.97, Estim Creat Clear Calc 66.67, Est GFR (MDRD) Af Amer 96, Est GFR (MDRD) Non-Af 79, BUN/Creatinine Ratio 16.5, Glucose 104, Calcium 7.9 L 12/19/19 05:22: WBC 3.4 L, RBC 3.82 L, Hgb 8.0 L, Hct 29.3 L, MCV 76.7 L, MCH 20.9 L, MCHC 27.3 L D, RDW Std Deviation 68.0 H, RDW Coeff of Khadijah 25.1 H, Plt Count 47 L*, Immature Gran % (Auto) 0.600, Neut % (Auto) 76.1 H, Lymph % (Auto) 14.3 L, Davison % (Auto) 7.8, Eos % (Auto) 0.9, Baso % (Auto) 0.3, Absolute Neuts (auto) 2.6, Absolute Lymphs (auto) 0.48 L, Nucleated RBC % 0, Diff Path Review May foll, Platelet Estimate MKD DEC, Polychromasia RARE, Hypochromasia 2+, Anisocytosis 2+, Microcytosis 2+, Spherocytes RARE H 12/19/19 05:22: Vitamin B12 Pending 12/19/19 05:22: Total Protein (PEP) Pending, IgG Pending, IgA Pending, IgM Pending, Albumin (OSCAR) Pending, Albumin/Globulin (OSCAR) Pending, Alpha-1- Globulins OSCAR Pending, Golvx-[id number] OSCAR Pending, Beta-Globulins (OSCAR) Pending, Gamma Globulins (OSCAR) Pending, OSCAR M-Silas Pending, Free [place] LC, Quant Pending, Free Lambda LC, Quant Pending, Free [place]/Lambda Ratio Pending Clinical Impression(s) from Imaging Studies Chest X-Ray 12/15/19 15:45 IMPRESSION: Stable examination with increased markings in the right upper lobe and right perihilar region suggestive of postradiation fibrosis. Inpatient E&M: 58862 Subs Hosp L2
--- NOTE | 2019-12-19 10:00 | PCM.PN.SRG ---
Patient Problems: Active and Suspected Problems (Last Reviewed 12/15/19 @ 13:40 by Paty Gallego) Pancytopenia (Acute) History of malignant neoplasm of lung (Acute) Subjective: Patient is not complaining of any abdominal pain at this point. Tolerating p.o. intake. Objective: Abdomen is soft and nontender. - Physical Exam Vitals/I&O's: Vital Signs Temp Pulse Resp BP Pulse Ox 98.3 F 72 18 117/58 L 97 12/19/19 08:09 12/19/19 08:09 12/19/19 08:09 12/19/19 08:09 12/19/19 08:09 Oxygen Flow Rate (L/min) 2 Oxygen Delivery Method Nasal Cannula Weight: 180 lb 12.465 oz Body Mass Index (BMI) 24.2 Intake and Output for Last 24 Hours 12/17/19 12/18/19 12/19/19 23:59 23:59 23:59 Intake Total 2280 / 2280 1480 / 1480 200 / 200 Output Total 2850 / 2850 1725 / 1725 350 / 350 Balance -570 / -570 -245 / -245 -150 / -150 Microbiology Past 72 Hours 12/15/19 20:31 Blood Culture (Wb) - Left Wrist Blood Culture - Preliminary No growth in 48 hours. 12/15/19 20:40 Blood Culture (Wb) - Anticubital Right Blood Culture - Preliminary No growth in 48 hours. 12/16/19 01:00 Urine, Clean Catch Urine Culture - Final Mixed Gram Positive Organisms 12/15/19 20:40 Sputum, Expectorated/Coughed Gram Stain - Final 12/15/19 20:40 Sputum, Expectorated/Coughed Respiratory Culture - Final Serratia marcescens Gram positive mayra 12/16/19 Unknown Stool Stool Occult Blood (BARBARA) - Final Occult Blood Positive 12/15/19 19:30 Mucosa - Nasopharyngeal Respiratory Panel (PCR) - Final Laboratory Results 12/15/19 16:30: Crossmatch See Detail 12/18/19 05:49: Folate 10.50 12/18/19 05:49: Lactate Dehydrogenase 204, Total PSA 6.40 H 12/18/19 15:58: Hgb 8.7 L, Hct 31.7 L 12/19/19 05:22: Sodium 141, Potassium 3.7, Chloride 107, Carbon Dioxide 29.0, Anion Gap 5, BUN 16, Creatinine 0.97, Estim Creat Clear Calc 66.67, Est GFR (MDRD) Af Amer 96, Est GFR (MDRD) Non-Af 79, BUN/Creatinine Ratio 16.5, Glucose 104, Calcium 7.9 L 12/19/19 05:22: WBC 3.4 L, RBC 3.82 L, Hgb 8.0 L, Hct 29.3 L, MCV 76.7 L, MCH 20.9 L, MCHC 27.3 L D, RDW Std Deviation 68.0 H, RDW Coeff of Khadijah 25.1 H, Plt Count 47 L*, Immature Gran % (Auto) 0.600, Neut % (Auto) 76.1 H, Lymph % (Auto) 14.3 L, [place] % (Auto) 7.8, Eos % (Auto) 0.9, Baso % (Auto) 0.3, Absolute Neuts (auto) 2.6, Absolute Lymphs (auto) 0.48 L, Nucleated RBC % 0, Diff Path Review May foll, Platelet Estimate MKD DEC, Polychromasia RARE, Hypochromasia 2+, Anisocytosis 2+, Microcytosis 2+, Spherocytes RARE H 12/19/19 05:22: Vitamin B12 Pending 12/19/19 05:22: Total Protein (PEP) Pending, IgG Pending, IgA Pending, IgM Pending, Albumin (OSCAR) Pending, Albumin/Globulin (OSCAR) Pending, Fsttr-[id number] OSCAR Pending, Yaxks-7-Zqnenwunb OSCAR Pending, Beta-Globulins (OSCAR) Pending, Gamma Globulins (OSCAR) Pending, OSCAR M-Silas Pending, Free [place] LC, Quant Pending, Free Lambda LC, Quant Pending, Free [place]/Lambda Ratio Pending Current Medications Acetaminophen (Tylenol) 650 mg PO Q6H PRN PRN PRN Reason: Pain Score 1-10/Temp > 100.7 F Albuterol Sulfate (Ventolin Aerosols) 2.5 mg INHALATION Q2H PRN PRN PRN Reason: SHORTNESS OF BREATH Albuterol/Ipratropium (Duoneb) 3 ml INHALATION Q4H.RT [facility] Last Admin: 12/19/19 07:07 Dose: 3 ml Documented by: Benzonatate (Tessalon Perle) 200 mg PO TID PRN PRN PRN Reason: COUGH Carvedilol (Coreg) 12.5 mg PO BID [facility] Last Admin: 12/18/19 21:01 Dose: 12.5 mg Documented by: Cholecalciferol (Vitamin D (25mcg)) 1,000 unit PO DAILY [facility] Last Admin: 12/18/19 09:59 Dose: 1,000 unit Documented by: Fluticasone Propionate (Flonase Nasal [place]) 1 spray NASAL BID [facility] Last Admin: 12/18/19 21:02 Dose: 1 spray Documented by: Furosemide (Lasix) 20 mg IV X1 PRN PRN Reason: between transfusion Furosemide (Lasix) 40 mg PO DAILY [facility] Last Admin: 12/18/19 09:58 Dose: 40 mg Documented by: Glucagon () 1 mg IM .X1 PRN PRN Reason: Hypoglycemia Sodium Chloride () 250 mls @ 15 mls/hr IV .[id number] PRN PRN Reason: Saline Flush Sodium Chloride () 250 mls @ 15 mls/hr IV .[id number] PRN PRN Reason: Additional IVPB Infusion Dextrose (Dextrose 10%-Water) 250 mls @ 999 mls/hr IV .Q16M PRN; Protocol PRN Reason: HYPOGLYCEMIA Pantoprazole Sodium 40 mg/ (Sodium Chloride) 110 mls @ 330 mls/hr IV Q12 [facility] Last Infusion: 12/18/19 21:20 Dose: Infused Documented by: Ceftriaxone Sodium 2 gm/ (Sodium Chloride) 50 mls @ 100 mls/hr IV Q24 [facility] Last Infusion: 12/18/19 13:43 Dose: Infused Documented by: Fluconazole (Diflucan) 200 mg in 100 mls @ 100 mls/hr IV Q24 [facility] Last Infusion: 12/18/19 16:15 Dose: Infused Documented by: Lisinopril (Zestril) 5 mg PO QHS [facility] Last Admin: 12/18/19 21:01 Dose: 5 mg Documented by: Nitroglycerin (Nitrostat) 0.4 mg SUBLINGUAL Q5M PRN PRN Reason: CARDIAC/CHEST PAIN Nystatin (Nystatin) 500,000 unit PO 4X/DAY [facility] Last Admin: 12/18/19 21:01 Dose: 500,000 unit Documented by: Oxycodone HCl (Oxyir) 5 mg PO Q4H PRN PRN PRN Reason: Pain Score 4-5/10 Polyethylene Glycol (Miralax) 17 gm PO DAILY [facility] Last Admin: 12/18/19 09:59 Dose: Not Given Documented by: Pravastatin Sodium (Pravachol) 40 mg PO QHS [facility] Last Admin: 12/18/19 21:01 Dose: 40 mg [facility]ed [facility] Admin: 12/19/19 08:19 Dose: 10 mg Documented by: Prochlorperazine Edisylate (Compazine Iv) 5 mg IV Q4H PRN PRN PRN Reason: Breakthrough Nausea/Vomiting Psyllium Hydrophilic Mucilloid (Metamucil) 1 packet PO DAILY PRN PRN PRN Reason: Constipation Senna/Docusate Sodium (Senokot-S, Yahaira-Colace) 2 tablet PO BID PRN PRN Reason: Constipation Sodium Chloride () 10 - 40 ml IV UD PRN PRN Reason: SALINE FLUSH Last Admin: 12/16/19 18:08 Dose: 10 ml Documented by: Sodium Chloride ([place] Nasal [place]) 2 spray NASAL TID [facility] Last Admin: 12/19/19 06:28 Dose: 2 spray Documented by: Medical Necessity - Tobacco Use Smoking Status: Former smoker Assessment/Plan All Active Problems (Last Reviewed 12/15/19 @ 13:40 by Paty Gallego) Pancytopenia (Acute) History of malignant neoplasm of lung (Acute) COPD (chronic obstructive pulmonary disease) (Acute) Prostate cancer (Acute) Hx of CABG (Resolved) Enlarged lymph nodes (Acute) halfway current use of anticoagulant (Acute) Presence of automatic implantable cardioverter-defibrillator (Acute) Malignant neoplasm of unspecified part of unspecified bronchus or lung (Acute) Immune thrombocytopenic purpura (Acute) Essential (primary) hypertension (Acute) Atherosclerotic heart disease of [place] coronary artery without angina pectoris (Acute) H/O hernia repair (Resolved) History of basal cell cancer (Acute) History of [place] (myocardial infarction) (Acute) Cataract (Acute) BPH loc w/o ur obs/LUTS (Acute) Esophageal reflux (Acute) Osteoarthrosis (Acute) History of cardiac cath (Resolved) port placement (Acute) s/p intrajugular port placement (Resolved) History of removal of Port-a-Cath (Resolved ~09/2018) Chemotherapy management, encounter for (Resolved) Encounter for insertion of venous access port (Resolved) Await hematology input. Not sure that adding platelets is going to help. Will hold off on any further endoscopy at this time.
[2019-12-19] MEDS: NYSTATIN 500,000 UNIT/5 ML UDC 500000 UNIT PO ×4 (11:34→22:02)
[2019-12-19] MEDS: Furosemide 40 MG Tablet PO (11:34)
[2019-12-19] MEDS: Polyethylene Glycol 3350 17 GM PACKET PO (11:34)
[2019-12-19] MEDS: Carvedilol 12.5 MG Tablet PO ×2 (11:34→22:02)
[2019-12-19] MEDS: Fluticasone 0.05% 1 SPRAY NASAL.SRY NASAL ×2 (11:35→22:02)
[2019-12-19] MEDS: 0.9% Saline Lock 10 ML Syringe IV (11:48)
[2019-12-19] MEDS: Lisinopril 5 MG Tablet PO (22:02)
[2019-12-19] MEDS: Pravastatin 40 MG Tablet PO (22:02)
[2019-12-20] VITALS (10 sets, daily range): BP systolic 127–137; BP diastolic 64–68; PULSE 67–79; RESP 16–20; TEMP 36.7–37.1; O2SAT 94–97
[2019-12-20] MEDS: Ipratropium/Albuterol Sulfate 3 ML AMPUL.NEB INHALATION ×3 (00:15→11:28)
[2019-12-20] MEDS: Sodium Chloride 0.65% 1 SPRAY SPRAY.BTL 2 SPRAY NASAL ×2 (06:16→13:05)
[2019-12-20 07:09] LABS: Absolute Lymphocyte Count 0.49 X10^3/uL (0.83-4.51); Basophil# 0.01 X10^3/uL; Basophil% 0.3 % (0-1); Eosinophil# 0.04 X10^3/uL; Hematocrit 31.4 % (40-54); Hemoglobin 8.5 g/dL (13.0-16.5); Lymphocyte # 0.49 X10^3/ul (4.0); Lymphocyte % 12.6 % (19-41); Mean Corp Hgb Conc 27.1 g/dL (32-36); Mean Corpuscular Hgb 20.9 pg (27.0-32.0); Mean Corpuscular Volume 77.3 fL (80-94); Monocyte# 0.29 X10^3/uL; Monocyte% 7.5 % (0-10); NRBC Flagged by Analyzer 0 % (0-5); Neutrophil # 3.03 X10^3/uL (2.7-7.7); Neutrophil % 77.8 % (47-70); POSITIVE COUNT YES; POSITIVE DIFFERENTIAL YES; POSITIVE MORPHOLOGY YES; RBC Distribution Width CV 25.9 % (11.6-14.6); RBC Distribution Width SD 71.4 fl (35.1-43.9); Red Blood Count 4.06 M/mm3 (4.6-6.2); White Blood Count 3.9 K/mm3 (4.4-11.0)
[2019-12-20 07:32] LABS: Anion Gap 4 (5-15); BUN 15 mg/dL (7-18); BUN/Creat Ratio 15.5 RATIO (10-20); Chloride 106 mmol/L (98-107); Creatinine, Serum 0.96 mg/dL (0.70-1.30); EST Glomerular Filtration Rate 80 mL/min (>60); Est Glom Filt Rate - Afr Amer 96 mL/min (>60); Estimated Creatinine Clearance 67.36 ml/min; Glucose 99 mg/dL (74-106); Sodium Level 140 mmol/L (136-145)
[2019-12-20 07:43] LABS: Differential Indicated SCAN CRITERIA MET
[2019-12-20 07:44] LABS: Platelet Count 45 K/mm3 (150-450)
[2019-12-20] MEDS: 0.9% Saline Lock 10 ML Syringe IV (08:40)
[2019-12-20] MEDS: NYSTATIN 500,000 UNIT/5 ML UDC 500000 UNIT PO ×2 (08:48→13:05)
[2019-12-20] MEDS: Furosemide 40 MG Tablet PO (08:48)
[2019-12-20] MEDS: predniSONE 10 MG Tablet PO (08:48)
[2019-12-20] MEDS: Carvedilol 12.5 MG Tablet PO (08:48)
[2019-12-20] MEDS: Polyethylene Glycol 3350 17 GM PACKET PO (08:48)
--- NOTE | 2019-12-20 09:40 | DCINST_ITS ---
- Discharge Diagnoses Current Active Problems: Current Active and Chronic Problems (Last Reviewed 12/15/19 @ 13:40 by Paty Gallego) Pancytopenia (Acute) History of malignant neoplasm of lung (Acute) You will use the following diet at home:: Cardiac Your food should be the consistency of: Regular Discharge Activity: Return to Normal Activity Weight Bearing Status: Weight bearing as tolerated Call your doctor if you observe: Fever of 101 or Higher, Shortness of breath, Dizziness, Fainting spells, Chest pain, Increased palpitations (irregular heartbeat), Uncontrolled pain Additional Instructions: Use oxygen with the same previous settings. Allergies/Adverse Reactions: Allergies levofloxacin [From Levaquin] Allergy (Severe, Verified 12/15/19 14:28) Unknown shaking, kicking, out of it Medications to take at Discharge Albuterol IH (ProAir) [Proair Hfa] 1 puff INHALATION Q4H PRN 03/19/18 Aspirin [Aspirin, Baby] 81 mg PO DAILY@0800 03/19/18 Lisinopril [Zestril] 5 mg PO QHS 03/19/18 Pravastatin [Pravachol] 40 mg PO DAILY 03/19/18 Psyllium [Metamucil] 1 packet PO DAILY PRN PRN 03/19/18 Fluticasone/Salmeterol [Advair 100/50 Diskus] 1 puff PO BID 08/24/18 Prednisone 10 mg PO DAILY 08/24/18 tiotropium bromide 18 mcg capsule with inhalation device 18 mcg INHALATION DAILY 09/13/19 Albuterol Aerosols [Ventolin Aerosols] 2.5 mg INHALATION Q6H PRN PRN 12/15/19 Benzonatate 200 mg PO TID PRN PRN 12/15/19 Carvedilol [Coreg] 12.5 mg PO BID 12/15/19 Cholecalciferol (VIT D3) [Vitamin D3] 1,000 unit PO DAILY 12/15/19 Cephalexin [Keflex] 500 mg PO Q12 #10 cap 12/20/19 Ferrous Sulfate 325 mg PO BIDCM #90 tab 12/20/19 Fluconazole [Diflucan] 200 mg PO DAILY #20 tab 12/20/19 Furosemide [Lasix] 40 mg PO DAILY #30 tab 12/20/19 Nystatin 500,000 unit PO 4X/DAY #40 udc 12/20/19 Pantoprazole Sodium [Protonix] 40 mg PO DAILY #30 tab 12/20/19 The following prescriptions were given: Fluconazole [Diflucan] 200 mg PO DAILY #20 tab Transmission Status: Pending to [facility] Ferrous Sulfate 325 mg PO BIDCM #90 tab Transmission Status: Pending to [facility] Cephalexin [Keflex] 500 mg PO Q12 #10 cap Transmission Status: Pending to [facility] Furosemide [Lasix] 40 mg PO DAILY #30 tab Transmission Status: Pending to [facility] Nystatin 500,000 unit PO 4X/DAY #40 udc Transmission Status: Pending to [facility] Pantoprazole Sodium [Protonix] 40 mg PO DAILY #30 tab Transmission Status: Pending to [facility] Primary Care Physician: Aleksandr Hernandez [Primary Care Provider] - Please follow up with your Primary Care Physician in: 1 week. Test Results: Test results from this visit will be discussed in further detail at your follow- up appointment, if applicable. Please Follow Up With: Gregorio Villareal MD When: 1-2 weeks.
[2019-12-20 09:41] LABS: Anisocytosis 1+
--- NOTE | 2019-12-20 09:55 | CASEMGMT ---
Addendum entered by Rupinder Spears 12/20/19 13:46: Pt/ updated on HHC at this time, voice understanding. Pt awaiting discharge at this time. Claudia LAW CM Addendum entered by Rupinder Spears 12/20/19 13:17: is here at this time and is agreeable to [facility] for SN, PT/OT at this time. List of local [facility] agencies provided to at this time and she would like [facility] referral sent at this time. states pt has had HHC in the past but they cannot remember name at this time. Referral faxed to [facility] at this time and call to Christina in intake to notify of referral, voices understanding. Pt states no concerns with taking pt at this time and she is aware that pt to be discharged today. Claudia LAW CM Original Note: This RN CM to room to discuss discharge planning with pt at this time. This RN CM discussed therapy recommendations with pt at this time and offered/explained HHC at this time. Pt states 'My usually makes those decisions.' This RN CM attempted to reach at home phone without success at this time. Pt states that will be coming in shortly and this RN CM to speak with her when she arrives. Claudia LAW CM
[2019-12-20 10:11] LABS: Vitamin B12 315 pg/mL (211-911)
--- NOTE | 2019-12-20 10:22 | PN_ITS ---
Patient Problems: Active and Suspected Problems (Last Reviewed 12/15/19 @ 13:40 by Paty Gallego) Pancytopenia (Acute) History of malignant neoplasm of lung (Acute) Subjective: Patient did okay overnight. No intervention has been required. No melena has been reported. Patient is denying any other bleeding complications. Patient does report some dyspnea on exertion, but overall feels improved compared to yesterday. - Physical Exam Vitals/I&O's: Vital Signs Temp Pulse Resp BP Pulse Ox 37.1 C 74 20 H 137/67 H 97 12/20/19 07:59 12/20/19 07:59 12/20/19 07:59 12/20/19 07:59 12/20/19 07:59 Oxygen Flow Rate (L/min) 2 Oxygen Delivery Method Nasal Cannula Weight: 81.7 kg Body Mass Index (BMI) 24.2 Intake and Output for Last 24 Hours 12/18/19 12/19/19 12/20/19 23:59 23:59 23:59 Intake Total 1480 / 1480 1670 / 1670 160 / 160 Output Total 1725 / 1725 1275 / 1275 200 / 200 Balance -245 / -245 395 / 395 -40 / -40 General: Alert, Oriented x3, Cooperative, - - Mild conversational dyspnea. Appears stated age. HEENT: Atraumatic, PERRLA, EOMI, Normocephalic, - - No scleral icterus or injection noted. Oral: Moist Mucosa, No Gingival or Mucosal Lesions/ Ulcerations Neck: Supple, No JVD, No Nodes, Trachea Midline Lungs: No rhonchi, No wheeze, No rales, Diminished, - - Symmetric expansion. No dullness to percussion. Cardiovascular: Regular rate, Regular Rhythm, Normal S1, Normal S2, No murmurs, No rub noted, No Gallop Abdomen: Bowel Sounds Present, Soft, Non Tender, Non-Distended Extremities: No clubbing, No cyanosis, No edema, Capillary Refill Less than 3 Seconds Skin: No rashes, No breakdown, - - Color much improved compared to office Musculoskeletal: No Tenderness to Palpation of Joints or Extremities Lymphatic: No Cervical, Supraclavicular, or Inguinal Adenopathy Neurological: Cranial nerves II-XII grossly intact, Neuro grossly intact, Motor Exam 5/5 strength throughout Psych/Mental Status: Alert and oriented to time, place, person, mood and affect Microbiology Past 72 Hours 12/15/19 20:31 Blood Culture (Wb) - Left Wrist Blood Culture - Preliminary No growth in 48 hours. 12/15/19 20:40 Blood Culture (Wb) - Anticubital Right Blood Culture - Preliminary No growth in 48 hours. 12/16/19 01:00 Urine, Clean Catch Urine Culture - Final Mixed Gram Positive Organisms 12/15/19 20:40 Sputum, Expectorated/Coughed Gram Stain - Final 12/15/19 20:40 Sputum, Expectorated/Coughed Respiratory Culture - Final Serratia marcescens Gram positive mayra Laboratory Results 12/19/19 05:22: Vitamin B12 315 12/19/19 05:22: Haptoglobin Pending, Total Protein (PEP) Pending, IgG Pending, IgA Pending, IgM Pending, Albumin (OSCAR) Pending, Albumin/Globulin (OSCAR) Pending, Euvnz-[id number] OSCAR Pending, Fgfmq-6-Ariekszka OSCAR Pending, Beta-Globulins (OSCAR) Pending, Gamma Globulins (OSCAR) Pending, OSCAR M-Silas Pending, Free [place] LC, Quant Pending, Free Lambda LC, Quant Pending, Free [place]/Lambda Ratio Pending 12/20/19 06:48: WBC 3.9 L, RBC 4.06 L, Hgb 8.5 L, Hct 31.4 L, MCV 77.3 L, MCH 20.9 L, MCHC 27.1 L, RDW Std Deviation 71.4 H, RDW Coeff of Khadijah 25.9 H, Plt Count 45 L*, Immature Gran % (Auto) 0.800, Neut % (Auto) 77.8 H, Lymph % (Auto) 12.6 L, [place]cl[place] % (Auto) 7.5, Eos % (Auto) 1.0, Baso % (Auto) 0.3, Absolute Neuts (auto) 3.0, Absolute Lymphs (auto) 0.49 L, Nucleated RBC % 0, Differential Comment COMMENT, Diff Path Review May foll, Anisocytosis 1+ 12/20/19 06:48: Sodium 140, Potassium 4.0, Chloride 106, Carbon Dioxide 30.0, Anion Gap 4 L, BUN 15, Creatinine 0.96, Estim Creat Clear Calc 67.36, Est GFR (MDRD) Af Amer 96, Est GFR (MDRD) Non-Af 80, BUN/Creatinine Ratio 15.5, Glucose 99, Calcium 8.0 L Current Medications Acetaminophen (Tylenol) 650 mg PO Q6H PRN PRN PRN Reason: Pain Score 1-10/Temp > 100.7 F Albuterol Sulfate (Ventolin Aerosols) 2.5 mg INHALATION Q2H PRN PRN PRN Reason: SHORTNESS OF BREATH Albuterol/Ipratropium (Duoneb) 3 ml INHALATION Q4H.RT [facility] Last Admin: 12/20/19 07:29 Dose: 3 ml Documented by: Benzonatate (Tessalon Perle) 200 mg PO TID PRN PRN PRN Reason: COUGH Carvedilol (Coreg) 12.5 mg PO BID [facility] Last Admin: 12/20/19 08:48 Dose: 12.5 mg Documented by: Cholecalciferol (Vitamin D (25mcg)) 1,000 unit PO DAILY [facility] Last Admin: 12/20/19 08:48 Dose: 1,000 unit Documented by: Fluticasone Propionate (Flonase Nasal [place]) 1 spray NASAL BID [facility] Last Admin: 12/19/19 22:02 Dose: 1 spray Documented by: Furosemide (Lasix) 20 mg IV X1 PRN PRN Reason: between transfusion Furosemide (Lasix) 40 mg PO DAILY [facility] Last Admin: 12/20/19 08:48 Dose: 40 mg Documented by: Glucagon () 1 mg IM .X1 PRN PRN Reason: Hypoglycemia Sodium Chloride () 250 mls @ 15 mls/hr IV .[id number] PRN PRN Reason: Saline Flush Sodium Chloride () 250 mls @ 15 mls/hr IV .[id number] PRN PRN Reason: Additional IVPB Infusion Dextrose (Dextrose 10%-Water) 250 mls @ 999 mls/hr IV .Q16M PRN; Protocol PRN Reason: HYPOGLYCEMIA Pantoprazole Sodium 40 mg/ (Sodium Chloride) 110 mls @ 330 mls/hr IV Q12 [facility] Last Infusion: 12/20/19 08:59 Dose: Infused Documented by: Ceftriaxone Sodium 2 gm/ (Sodium Chloride) 50 mls @ 100 mls/hr IV Q24 [facility] Last Admin: 12/20/19 10:00 Dose: 100 mls/hr Documented by: Fluconazole (Diflucan) 200 mg in 100 mls @ 100 mls/hr IV Q24 [facility] Last Infusion: 12/19/19 14:45 Dose: Infused Documented by: Lisinopril (Zestril) 5 mg PO QHS [facility] Last Admin: 12/19/19 22:02 Dose: 5 mg Documented by: Nitroglycerin (Nitrostat) 0.4 mg SUBLINGUAL Q5M PRN PRN Reason: CARDIAC/CHEST PAIN Nystatin (Nystatin) 500,000 unit PO 4X/DAY [facility] Last Admin: 12/20/19 08:48 Dose: 500,000 unit Documented by: Oxycodone HCl (Oxyir) 5 mg PO Q4H PRN PRN PRN Reason: Pain Score 4-5/10 Polyethylene Glycol (Miralax) 17 gm PO DAILY [facility] Last Admin: 12/20/19 08:48 Dose: 17 gm Documented by: Pravastatin Sodium (Pravachol) 40 mg PO QHS [facility] Last Admin: 12/19/19 22:02 Dose: 40 mg Documented by: [facility] Admin: 12/20/19 08:48 Dose: 10 mg Documented by: Prochlorperazine Edisylate (Compazine Iv) 5 mg IV Q4H PRN PRN PRN Reason: Breakthrough Nausea/Vomiting Psyllium Hydrophilic Mucilloid (Metamucil) 1 packet PO DAILY PRN PRN PRN Reason: Constipation Senna/Docusate Sodium (Senokot-S, Yahaira-Colace) 2 tablet PO BID PRN PRN Reason: Constipation Sodium Chloride () 10 - 40 ml IV UD PRN PRN Reason: SALINE FLUSH Last Admin: 12/20/19 08:40 Dose: 10 ml Documented by: Sodium Chloride (Vivian Nasal [place]) 2 spray NASAL TID [facility] Last Admin: 12/20/19 06:16 Dose: 2 spray Documented by: Medical Necessity - Tobacco Use Smoking Status: Former smoker Assessment/Plan All Active Problems (Last Reviewed 12/15/19 @ 13:40 by Paty Gallego) Pancytopenia (Acute) History of malignant neoplasm of lung (Acute) COPD (chronic obstructive pulmonary disease) (Acute) Prostate cancer (Acute) Hx of CABG (Resolved) Enlarged lymph nodes (Acute) [facility]FP current use of anticoagulant (Acute) Presence of automatic implantable cardioverter-defibrillator (Acute) Malignant neoplasm of unspecified part of unspecified bronchus or lung (Acute) Immune thrombocytopenic purpura (Acute) Essential (primary) hypertension (Acute) Atherosclerotic heart disease of [place] coronary artery without angina pectoris (Acute) H/O hernia repair (Resolved) History of basal cell cancer (Acute) History of [place] (myocardial infarction) (Acute) Cataract (Acute) BPH loc w/o ur obs/LUTS (Acute) Esophageal reflux (Acute) Osteoarthrosis (Acute) History of cardiac cath (Resolved) port placement (Acute) s/p intrajugular port placement (Resolved) History of removal of Port-a-Cath (Resolved ~09/2018) Chemotherapy management, encounter for (Resolved) Encounter for insertion of venous access port (Resolved) RECOMMENDATIONS: 1. Continue PPI therapy. 2. Diflucan for esophageal candidiasis. 3. Continue bronchodilators. Walking oximetry prior to discharge 4. Okay to discharge if requires 6 L or less nasal cannula oxygen 5. Encourage incentive spirometer use and mobilize patient as tolerated. 6. Continue to check H&H daily. Plan to transfuse if hemoglobin drops below 7 g/dL. 7. Follow-up with nurse practitioner 2 weeks after discharge IMPRESSIONS: 1. Symptomatic anemia/chronic thrombocytopenia (immune thrombocytopenic purpura) The patient was admitted to the hospital with symptomatic anemia and a hemoglobin of 5.3 g/dL. There were no overt signs of blood loss at this time. 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 The patient was noted to have an AVM and hemoglobin has improved spontaneously today. Platelets continue to be low, but this is chronic and no active bleeding is reported. Okay to discharge from a pulmonary perspective, but patient should be seen in the outpatient office in 2 weeks with nurse practitioner as previous follow-up was not completed secondary to hemodynamics. 2. 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 Villareal of oncology. 3. History of COPD/emphysema/chronic hypoxemic respiratory failure The patient will be continued on scheduled bronchodilators and supplemental oxygen. Antibiotics will be continued to address the Serratia marcescens isolated on sputum culture. Continue baseline prednisone dose. Patient is on 10 mg chronically. 4. History of coronary artery disease status post CABG/chronic systolic heart failure Complicates care, management, recovery and prognosis. Cardiology is currently following to assist with medical management. Inpatient E&M: 05415 Subs Hosp L2
[2019-12-20 10:47] LABS: Pathologist Review Reviewed
[2019-12-20 10:50] LABS: Pathologist Review Reviewed
--- NOTE | 2019-12-20 11:24 | PHA.DC.MC ---
Pharmacy Service has performed discharge medication reconciliation and counseling for this patient. 1. FLUCONAZOLE 200MG PO DAILY X 20 DAYS 2. FERROUS SULFATE 325MG PO BIDCM 3. FUROSEMIDE 40MG PO DAILY 4. CEFDINIR 300MG PO Q12H X 5 DAYS 5. NYSTATIN 500,000UNITS 4 TIMES DAILY X 10 DAYS 6. PANTOPRAZOLE 40MG PO DAILY The patient's discharge medication list was reviewed for discrepancies and discrepancies were resolved. Home Medications Albuterol IH (ProAir) [Proair Hfa] 1 puff INHALATION Q4H PRN 03/19/18 Aspirin [Aspirin, Baby] 81 mg PO DAILY@0800 03/19/18 Lisinopril [Zestril] 5 mg PO QHS 03/19/18 Pravastatin [Pravachol] 40 mg PO DAILY 03/19/18 Psyllium [Metamucil] 1 packet PO DAILY PRN PRN 03/19/18 Fluticasone/Salmeterol [Advair 100/50 Diskus] 1 puff PO BID 08/24/18 Prednisone 10 mg PO DAILY 08/24/18 tiotropium bromide 18 mcg capsule with inhalation device 18 mcg INHALATION DAILY 09/13/19 Albuterol Aerosols [Ventolin Aerosols] 2.5 mg INHALATION Q6H PRN PRN 12/15/19 Benzonatate 200 mg PO TID PRN PRN 12/15/19 Carvedilol [Coreg] 12.5 mg PO BID 12/15/19 Cholecalciferol (VIT D3) [Vitamin D3] 1,000 unit PO DAILY 12/15/19 Cefdinir [Omnicef [equiv]] 300 mg PO Q12H #10 cap 12/20/19 Ferrous Sulfate 325 mg PO BIDCM #90 tab 12/20/19 Fluconazole [Diflucan] 200 mg PO DAILY #20 tab 12/20/19 Furosemide [Lasix] 40 mg PO DAILY #30 tab 12/20/19 Nystatin 500,000 unit PO 4X/DAY #40 udc 12/20/19 Pantoprazole Sodium [Protonix] 40 mg PO DAILY #30 tab 12/20/19 The patient was counseled on the following discharge medications and changes in medications for homegoing were reviewed. The Reason for Use, instructions for use, and potential side effects were reviewed for all new medications. The patient's questions regarding all of their medications were answered. The patient was able to verbally demonstrate an understanding of their discharge medications.
--- NOTE | 2019-12-20 12:13 | PN.SURG_ITS ---
Patient Problems: Active and Suspected Problems (Last Reviewed 12/15/19 @ 13:40 by Paty Gallego) Pancytopenia (Acute) History of malignant neoplasm of lung (Acute) Subjective: Patient evaluated resting comfortably in bed. He denies nausea, vomiting, abdominal pain, melena or bright red blood per rectum. - Physical Exam Vitals/I&O's: Vital Signs Temp Pulse Resp BP Pulse Ox 98.7 F 74 20 H 137/67 H 97 12/20/19 07:59 12/20/19 11:00 12/20/19 07:59 12/20/19 07:59 12/20/19 07:59 Oxygen Flow Rate (L/min) 2 Oxygen Delivery Method Nasal Cannula Weight: 180 lb 1.883 oz Body Mass Index (BMI) 24.2 Intake and Output for Last 24 Hours 12/18/19 12/19/19 12/20/19 23:59 23:59 23:59 Intake Total 1480 / 1480 1670 / 1670 610 / 610 Output Total 1725 / 1725 1275 / 1275 630 / 630 Balance -245 / -245 395 / 395 -20 / -20 General: Alert, Oriented x3, Cooperative Abdomen: Bowel Sounds Present, Soft, Non Tender Microbiology Past 72 Hours 12/15/19 20:31 Blood Culture (Wb) - Left Wrist Blood Culture - Preliminary No growth in 48 hours. 12/15/19 20:40 Blood Culture (Wb) - Anticubital Right Blood Culture - Preliminary No growth in 48 hours. 12/16/19 01:00 Urine, Clean Catch Urine Culture - Final Mixed Gram Positive Organisms 12/15/19 20:40 Sputum, Expectorated/Coughed Gram Stain - Final 12/15/19 20:40 Sputum, Expectorated/Coughed Respiratory Culture - Final Serratia marcescens Gram positive mayra Laboratory Results 12/18/19 05:49: Diff Path Review Reviewed 12/19/19 05:22: Diff Path Review Reviewed 12/19/19 05:22: Vitamin B12 315 12/19/19 05:22: Haptoglobin Pending, Total Protein (PEP) Pending, IgG Pending, IgA Pending, IgM Pending, Albumin (OSCAR) Pending, Albumin/Globulin (OSCAR) Pending, Gsmcd-[id number] OSCAR Pending, Jciyn-7-Dicirzxfe OSCAR Pending, Beta-Globulins (OSCAR) Pending, Gamma Globulins (OSCAR) Pending, OSCAR M-Silas Pending, Free [place] LC, Quant Pending, Free Lambda LC, Quant Pending, Free [place]/Lambda Ratio Pending 12/20/19 06:48: WBC 3.9 L, RBC 4.06 L, Hgb 8.5 L, Hct 31.4 L, MCV 77.3 L, MCH 20.9 L, MCHC 27.1 L, RDW Std Deviation 71.4 H, RDW Coeff of Khadijah 25.9 H, Plt Count 45 L*, Immature Gran % (Auto) 0.800, Neut % (Auto) 77.8 H, Lymph % (Auto) 12.6 L, Caroline % (Auto) 7.5, Eos % (Auto) 1.0, Baso % (Auto) 0.3, Absolute Neuts (auto) 3.0, Absolute Lymphs (auto) 0.49 L, Nucleated RBC % 0, Differential Comment COMMENT, Diff Path Review May foll, Anisocytosis 1+ 12/20/19 06:48: Sodium 140, Potassium 4.0, Chloride 106, Carbon Dioxide 30.0, Anion Gap 4 L, BUN 15, Creatinine 0.96, Estim Creat Clear Calc 67.36, Est GFR (MDRD) Af Amer 96, Est GFR (MDRD) Non-Af 80, BUN/Creatinine Ratio 15.5, Glucose 99, Calcium 8.0 L Current Medications Acetaminophen (Tylenol) 650 mg PO Q6H PRN PRN PRN Reason: Pain Score 1-10/Temp > 100.7 F Albuterol Sulfate (Ventolin Aerosols) 2.5 mg INHALATION Q2H PRN PRN PRN Reason: SHORTNESS OF BREATH Albuterol/Ipratropium (Duoneb) 3 ml INHALATION Q4H.RT [facility] Last Admin: 12/20/19 11:28 Dose: 3 ml Documented by: Benzonatate (Tessalon Perle) 200 mg PO TID PRN PRN PRN Reason: COUGH Carvedilol (Coreg) 12.5 mg PO BID [facility] Last Admin: 12/20/19 08:48 Dose: 12.5 mg Documented by: Cholecalciferol (Vitamin D (25mcg)) 1,000 unit PO DAILY [facility] Last Admin: 12/20/19 08:48 Dose: 1,000 unit Documented by: Fluticasone Propionate (Flonase Nasal [place]) 1 spray NASAL BID [facility] Last Admin: 12/20/19 10:40 Dose: Not Given Documented by: Furosemide (Lasix) 20 mg IV X1 PRN PRN Reason: between transfusion Furosemide (Lasix) 40 mg PO DAILY [facility] Last Admin: 12/20/19 08:48 Dose: 40 mg Documented by: Glucagon () 1 mg IM .X1 PRN PRN Reason: Hypoglycemia Sodium Chloride () 250 mls @ 15 mls/hr IV .[id number] PRN PRN Reason: Saline Flush Sodium Chloride () 250 mls @ 15 mls/hr IV .[id number] PRN PRN Reason: Additional IVPB Infusion Dextrose (Dextrose 10%-Water) 250 mls @ 999 mls/hr IV .Q16M PRN; Protocol PRN Reason: HYPOGLYCEMIA Pantoprazole Sodium 40 mg/ (Sodium Chloride) 110 mls @ 330 mls/hr IV Q12 [facility] Last Infusion: 12/20/19 08:59 Dose: Infused Documented by: Ceftriaxone Sodium 2 gm/ (Sodium Chloride) 50 mls @ 100 mls/hr IV Q24 [facility] Last Infusion: 12/20/19 10:30 Dose: Infused Documented by: Fluconazole (Diflucan) 200 mg in 100 mls @ 100 mls/hr IV Q24 [facility] Last Admin: 12/20/19 10:40 Dose: 100 mls/hr Documented by: Lisinopril (Zestril) 5 mg PO QHS [facility] Last Admin: 12/19/19 22:02 Dose: 5 mg Documented by: Nitroglycerin (Nitrostat) 0.4 mg SUBLINGUAL Q5M PRN PRN Reason: CARDIAC/CHEST PAIN Nystatin (Nystatin) 500,000 unit PO 4X/DAY [facility] Last Admin: 12/20/19 08:48 Dose: 500,000 unit Documented by: Oxycodone HCl (Oxyir) 5 mg PO Q4H PRN PRN PRN Reason: Pain Score 4-5/10 Polyethylene Glycol (Miralax) 17 gm PO DAILY [facility] Last Admin: 12/20/19 08:48 Dose: 17 gm Documented by: Pravastatin Sodium (Pravachol) 40 mg PO QHS [facility] Last Admin: 12/19/19 22:02 Dose: 40 mg Documented by: Prednisone () 10 mg PO DAILYCM [facility] Last Admin: 12/20/19 08:48 Dose: 10 mg Documented by: Prochlorperazine Edisylate (Compazine Iv) 5 mg IV Q4H PRN PRN PRN Reason: Breakthrough Nausea/Vomiting Psyllium Hydrophilic Mucilloid (Metamucil) 1 packet PO DAILY PRN PRN PRN Reason: Constipation Senna/Docusate Sodium (Senokot-S, Yahaira-Colace) 2 tablet PO BID PRN PRN Reason: Constipation Sodium Chloride () 10 - 40 ml IV UD PRN PRN Reason: SALINE FLUSH Last Admin: 12/20/19 08:40 Dose: 10 ml Documented by: Sodium Chloride ([place] Nasal [place]) 2 spray NASAL TID [facility] Last Admin: 12/20/19 06:16 Dose: 2 spray Documented by: Medical Necessity - Tobacco Use Smoking Status: Former smoker Assessment/Plan All Active Problems (Last Reviewed 12/15/19 @ 13:40 by Paty Gallego) Pancytopenia (Acute) History of malignant neoplasm of lung (Acute) COPD (chronic obstructive pulmonary disease) (Acute) Prostate cancer (Acute) Hx of CABG (Resolved) Enlarged lymph nodes (Acute) watermaster current use of anticoagulant (Acute) Presence of automatic implantable cardioverter-defibrillator (Acute) Malignant neoplasm of unspecified part of unspecified bronchus or lung (Acute) Immune thrombocytopenic purpura (Acute) Essential (primary) hypertension (Acute) Atherosclerotic heart disease of [place] coronary artery without angina pectoris (Acute) H/O hernia repair (Resolved) History of basal cell cancer (Acute) History of [place] (myocardial infarction) (Acute) Cataract (Acute) BPH loc w/o ur obs/LUTS (Acute) Esophageal reflux (Acute) Osteoarthrosis (Acute) History of cardiac cath (Resolved) port placement (Acute) s/p intrajugular port placement (Resolved) History of removal of Port-a-Cath (Resolved ~09/2018) Chemotherapy management, encounter for (Resolved) Encounter for insertion of venous access port (Resolved) I am following this patient in conjunction with Dr. Lam in Dr. Perry's absence. Acute anemia Hgb stable Continue to treat for esophageal candidiasis as an outpatient for 14 days total Follow-up in 2 weeks after discharge with Dr. Orlando Owens for discharge from surgical standpoint Inpatient E&M: 96773 Subs Hosp L1 - No charge
--- NOTE | 2019-12-20 12:39 | PCM.DC.SUM ---
Discharge Date and Diagnosis Date of Admission: 12/15/19 Date of Discharge: 12/20/19 - Primary Discharge Diagnosis Active and Suspected Problems (Last Reviewed 12/15/19 @ 13:40 by Paty Gallego) #1 acute on chronic symptomatic anemia attributed to probable pulmonary disorder and possible GI bleed. #2 pancytopenia. #3 symptomatic hypotension. - Secondary Discharge Diagnosis Chronic Problems (Last Reviewed 12/15/19 @ 13:40 by Paty Gallego) CHF (congestive heart failure) (Chronic) CAD (coronary artery disease) (Chronic) Pacemaker (Chronic) Hyperlipidemia (Chronic) CHF (congestive heart failure), NYHA class III (Chronic) Thrombocytopenia (Chronic) Primary malignant neoplasm of right upper lobe of lung (Chronic) Regional lymph node metastasis present (Chronic) COPD (chronic obstructive pulmonary disease) (Chronic) CAD (coronary artery disease) (Chronic) Presence of combination internal cardiac defibrillator (ICD) and pacemaker (Chronic) Hospital Course and Treatment Imaging Results: Clinical Impression(s) from Imaging Studies Chest X-Ray 12/15/19 15:45 IMPRESSION: Stable examination with increased markings in the right upper lobe and right perihilar region suggestive of postradiation fibrosis. Electronically Signed: Dangelo Blevins, at 16:02 EDT , Service support , Abdomen CT 12/18/19 15:56 IMPRESSION: No acute or remote or significant change. Cholelithiasis. Stable bilateral nonobstructing renal stones. Evaluate GI tract is limited by absence of oral contrast. Electronically Signed: Petros Alarcon MD at 18:10 EDT , Service support , Chest CT 12/18/19 15:56 IMPRESSION: Bilateral pleural effusions, new since previous exam. COPD with diffuse interstitial fibrosis and focal areas of scarring. Probable atelectasis and/or scarring especially in both lower lung zones. Small neoplastic nodules are not excluded. Electronically Signed: Petros Alarcon MD at 18:18 EDT , Service support , Dr. Daigle, critical care. cardiac rhythm/Dr. Lam, general surgery. Procedures: Blood transfusion, Colonoscopy, EGD Summary of Care Provided: Patient seen and examined on the day of discharge and appeared to be stable to be discharged home. He feels better, symptoms improved. Hemoglobin stabilized at 8.5 g/dL. His vital signs were stable. The patient is a 79 year old M presented to the emergency room because of dizziness, lightheadedness and low blood pressure. He was found to have acute on chronic severe anemia with hemoglobin of 5.3 g/dL on admission. Also, he was found to have pancytopenia and thrombocytopenia. Patient received blood transfusion for severe acute on chronic anemia. He received total of 4 units of packed RBCs and his hemoglobin went up to 8.5 g/dL upon discharge. Patient underwent upper EGD and he was found to have esophageal plaques suspicious for candidiasis, normal stomach and duodenum. There was no evidence of active upper GI bleed. Colonoscopy also performed and showed 1 nonbleeding colonic angiectasia, otherwise normal. There was no evidence of active lower GI bleed. Patient was treated with blood transfusion, PPI with Diflucan and nystatin for esophageal candidiasis. He does have thrombocytopenia which is chronic but his platelet count came down to around 50,000 during this hospital stay. There was no indication for platelet transfusion. Patient had CT scan chest with contrast that revealed bilateral small pleural effusion, COPD and there was probable atelectasis or scarring in both lower lung zones. Patient was treated with IV Rocephin for probable pneumonia. Blood culture showed no growth in 5 days. Respiratory panel for viruses were negative. Pneumococcal and Legionella antigen were negative. Sputum culture revealed Serratia marcescens. With above-mentioned treatment, patient symptoms improved, hemoglobin and hematocrit stabilized. Patient discharged home with home health in a stable condition, discharged on fluconazole tablets and nystatin p.o. for esophageal candidiasis for 10 days of treatment, discharged on iron supplement, discharged on cefdinir for probable pneumonia due to Serratia, discharged on Protonix, recommended from with PCP in 1 week, follow-up with oncology in 1 to 2 weeks. - Physical Exam Vitals/I&O's: Vital Signs Temp Pulse Resp BP Pulse Ox 98.7 F 74 16 137/67 H 97 12/20/19 07:59 12/20/19 11:28 12/20/19 11:28 12/20/19 07:59 12/20/19 07:59 Oxygen Flow Rate (L/min) 2 Oxygen Delivery Method Nasal Cannula Weight: 180 lb 1.883 oz Body Mass Index (BMI) 24.2 Intake and Output for Last 24 Hours 12/18/19 12/19/19 12/20/19 23:59 23:59 23:59 Intake Total 1480 / 1480 1670 / 1670 710 / 710 Output Total 1725 / 1725 1275 / 1275 630 / 630 Balance -245 / -245 395 / 395 80 / 80 General: Alert, Oriented x3, Cooperative, No apparent distress HEENT: Atraumatic, PERRLA, EOMI, Normocephalic Oral: Moist Mucosa, No Gingival or Mucosal Lesions/ Ulcerations Neck: Supple, No JVD, Negative Carotid Bruits, Trachea Midline, Thyroid Normal Size and Texture Lungs: Clear to auscultation, No wheeze, No rales, Diminished, Rhonchi Cardiovascular: Regular rate, Regular Rhythm, Normal S1, Normal S2, PMI Normal Abdomen: Bowel Sounds Present, Soft, Non Tender, Non-Distended, No Hepato-splenomegaly Extremities: No clubbing, No cyanosis, No edema Skin: No rashes, No breakdown Lymphatic: No Cervical, Supraclavicular, or Inguinal Adenopathy Neurological: Cranial nerves II-XII grossly intact, Neuro grossly intact Psych/Mental Status: Normal Affect, Appropriate Microbiology Past 72 Hours 12/15/19 20:31 Blood Culture (Wb) - Left Wrist Blood Culture - Preliminary No growth in 48 hours. 12/15/19 20:40 Blood Culture (Wb) - Anticubital Right Blood Culture - Preliminary No growth in 48 hours. 12/16/19 01:00 Urine, Clean Catch Urine Culture - Final Mixed Gram Positive Organisms 12/15/19 20:40 Sputum, Expectorated/Coughed Gram Stain - Final 12/15/19 20:40 Sputum, Expectorated/Coughed Respiratory Culture - Final Serratia marcescens Gram positive mayra Laboratory Results 12/18/19 05:49: Diff Path Review Reviewed 12/19/19 05:22: Diff Path Review Reviewed 12/19/19 05:22: Vitamin B12 315 12/19/19 05:22: Haptoglobin Pending, Total Protein (PEP) Pending, IgG Pending, IgA Pending, IgM Pending, Albumin (OSCAR) Pending, Albumin/Globulin (OSCAR) Pending, Flvxk-3-Ldaghjeoy OSCAR Pending, Pajat-3-Etuspixqo OSCAR Pending, Beta-Globulins (OSCAR) Pending, Gamma Globulins (OSCAR) Pending, OSCAR M-Silas Pending, Free Nixon LC, Quant Pending, Free Lambda LC, Quant Pending, Free Nixon/Lambda Ratio Pending 12/20/19 06:48: WBC 3.9 L, RBC 4.06 L, Hgb 8.5 L, Hct 31.4 L, MCV 77.3 L, MCH 20.9 L, MCHC 27.1 L, RDW Std Deviation 71.4 H, RDW Coeff of Khadijah 25.9 H, Plt Count 45 L*, Immature Gran % (Auto) 0.800, Neut % (Auto) 77.8 H, Lymph % (Auto) 12.6 L, Greene % (Auto) 7.5, Eos % (Auto) 1.0, Baso % (Auto) 0.3, Absolute Neuts (auto) 3.0, Absolute Lymphs (auto) 0.49 L, Nucleated RBC % 0, Differential Comment COMMENT, Diff Path Review May foll, Anisocytosis 1+ 12/20/19 06:48: Sodium 140, Potassium 4.0, Chloride 106, Carbon Dioxide 30.0, Anion Gap 4 L, BUN 15, Creatinine 0.96, Estim Creat Clear Calc 67.36, Est GFR (MDRD) Af Amer 96, Est GFR (MDRD) Non-Af 80, BUN/Creatinine Ratio 15.5, Glucose 99, Calcium 8.0 L Current Medications Acetaminophen (Tylenol) 650 mg PO Q6H PRN PRN PRN Reason: Pain Score 1-10/Temp > 100.7 F Albuterol Sulfate (Ventolin Aerosols) 2.5 mg INHALATION Q2H PRN PRN PRN Reason: SHORTNESS OF BREATH Albuterol/Ipratropium (Duoneb) 3 ml INHALATION Q4H.RT CHRISTINA Last Admin: 12/20/19 11:28 Dose: 3 ml Documented by: Benzonatate (Tessalon Perle) 200 mg PO TID PRN PRN PRN Reason: COUGH Carvedilol (Coreg) 12.5 mg PO BID [facility] Last Admin: 12/20/19 08:48 Dose: 12.5 mg Documented by: Cholecalciferol (Vitamin D (25mcg)) 1,000 unit PO DAILY [facility] Last Admin: 12/20/19 08:48 Dose: 1,000 unit Documented by: Fluticasone Propionate (Flonase Nasal Atkins) 1 spray NASAL BID [facility] Last Admin: 12/20/19 10:40 Dose: Not Given Documented by: Furosemide (Lasix) 20 mg IV X1 PRN PRN Reason: between transfusion Furosemide (Lasix) 40 mg PO DAILY [facility] Last Admin: 12/20/19 08:48 Dose: 40 mg Documented by: Glucagon () 1 mg IM .X1 PRN PRN Reason: Hypoglycemia Sodium Chloride () 250 mls @ 15 mls/hr IV .[id number] PRN PRN Reason: Saline Flush Sodium Chloride () 250 mls @ 15 mls/hr IV .[id number] PRN PRN Reason: Additional IVPB Infusion Dextrose (Dextrose 10%-Water) 250 mls @ 999 mls/hr IV .Q16M PRN; Protocol PRN Reason: HYPOGLYCEMIA Pantoprazole Sodium 40 mg/ (Sodium Chloride) 110 mls @ 330 mls/hr IV Q12 [facility] Last Infusion: 12/20/19 08:59 Dose: Infused Documented by: Ceftriaxone Sodium 2 gm/ (Sodium Chloride) 50 mls @ 100 mls/hr IV Q24 [facility] Last Infusion: 12/20/19 10:30 Dose: Infused Documented by: Fluconazole (Diflucan) 200 mg in 100 mls @ 100 mls/hr IV Q24 [facility] Last Infusion: 12/20/19 11:40 Dose: Infused Documented by: Lisinopril (Zestril) 5 mg PO QHS [facility] Last Admin: 12/19/19 22:02 Dose: 5 mg Documented by: Nitroglycerin (Nitrostat) 0.4 mg SUBLINGUAL Q5M PRN PRN Reason: CARDIAC/CHEST PAIN Nystatin (Nystatin) 500,000 unit PO 4X/DAY [facility] Last Admin: 12/20/19 08:48 Dose: 500,000 unit Documented by: Oxycodone HCl (Oxyir) 5 mg PO Q4H PRN PRN PRN Reason: Pain Score 4-5/10 Polyethylene Glycol (Miralax) 17 gm PO DAILY [facility] Last Admin: 12/20/19 08:48 Dose: 17 gm Documented by: Pravastatin Sodium (Pravachol) 40 mg PO QHS [facility] Last Admin: 12/19/19 22:02 Dose: 40 mg Documented by: Prednisone () 10 mg PO DAILYCM [facility] Last Admin: 12/20/19 08:48 Dose: 10 mg Documented by: Prochlorperazine Edisylate (Compazine Iv) 5 mg IV Q4H PRN PRN PRN Reason: Breakthrough Nausea/Vomiting Psyllium Hydrophilic Mucilloid (Metamucil) 1 packet PO DAILY PRN PRN PRN Reason: Constipation Senna/Docusate Sodium (Senokot-S, Yahaira-Colace) 2 tablet PO BID PRN PRN Reason: Constipation Sodium Chloride () 10 - 40 ml IV UD PRN PRN Reason: SALINE FLUSH Last Admin: 12/20/19 08:40 Dose: 10 ml Documented by: Sodium Chloride (Laurel Nasal Atkins) 2 spray NASAL TID [facility] Last Admin: 12/20/19 06:16 Dose: 2 spray Documented by: Discharge Activity: Return to Normal Activity Weight Bearing Status: Weight bearing as tolerated Call your doctor if you observe: Fever of 101 or Higher, Shortness of breath, Dizziness, Fainting spells, Chest pain, Increased palpitations (irregular heartbeat), Uncontrolled pain Home Medications: Medications to take at Discharge Albuterol IH (ProAir) [Proair Hfa] 1 puff INHALATION Q4H PRN 03/19/18 Aspirin [Aspirin, Baby] 81 mg PO DAILY@0800 03/19/18 Lisinopril [Zestril] 5 mg PO QHS 03/19/18 Pravastatin [Pravachol] 40 mg PO DAILY 03/19/18 Psyllium [Metamucil] 1 packet PO DAILY PRN PRN 03/19/18 Fluticasone/Salmeterol [Advair 100/50 Diskus] 1 puff PO BID 08/24/18 Prednisone 10 mg PO DAILY 08/24/18 tiotropium bromide 18 mcg capsule with inhalation device 18 mcg INHALATION DAILY 09/13/19 Albuterol Aerosols [Ventolin Aerosols] 2.5 mg INHALATION Q6H PRN PRN 12/15/19 Benzonatate 200 mg PO TID PRN PRN 12/15/19 Carvedilol [Coreg] 12.5 mg PO BID 12/15/19 Cholecalciferol (VIT D3) [Vitamin D3] 1,000 unit PO DAILY 12/15/19 Cefdinir [Omnicef [equiv]] 300 mg PO Q12H #10 cap 12/20/19 Ferrous Sulfate 325 mg PO BIDCM #90 tab 12/20/19 Fluconazole [Diflucan] 200 mg PO DAILY #20 tab 12/20/19 Furosemide [Lasix] 40 mg PO DAILY #30 tab 12/20/19 Nystatin 500,000 unit PO 4X/DAY #40 udc 12/20/19 Pantoprazole Sodium [Protonix] 40 mg PO DAILY #30 tab 12/20/19 Following Prescrptions Were Given to Patient: Fluconazole [Diflucan] 200 mg PO DAILY #20 tab Transmission Status: Received by [facility] Ferrous Sulfate 325 mg PO BIDCM #90 tab Transmission Status: Received by [facility] Furosemide [Lasix] 40 mg PO DAILY #30 tab Transmission Status: Received by [facility] Nystatin 500,000 unit PO 4X/DAY #40 udc Transmission Status: Received by [facility] Cefdinir [Omnicef [equiv]] 300 mg PO Q12H #10 cap Transmission Status: Received by [facility] Pantoprazole Sodium [Protonix] 40 mg PO DAILY #30 tab Transmission Status: Received by [facility] Primary Care Physician: Aleksandr Hernandez [Primary Care Provider] - Please follow up with your Primary Care Physician in: 1 week. Please Follow Up With: Gregorio Villareal MD When: 1-2 weeks. Please Follow Up With: Aleksandr Hernandez Please Follow Up With: Jalen Pacheco MD Disposition: Home Minutes spent on discharge:: 33 Patient Condition:: Stable Medical Necessity - Tobacco Use Smoking Status: Former smoker Meaningful Use Info Meaningful Use Diagnoses (Choose all that apply): None applicable Inpatient E&M: 53041 [facility]
[2019-12-20 15:43] LABS: Pathologist Review Reviewed
--- NOTE | 2019-12-21 14:44 | CASEMGMT ---
ANI CM Discharge Follow-Up Phone Call. Lace: 12 Strata: 3 Discharge Date: 12/20/19 Adm Dx: Anemia w/hypotension Attempted discharge follow-up phone call. No answer. Message left for pt to return call if he has any questions/concerns/needs. Phone number provided. Victoria DA SILVAN RN CM
[2019-12-21 16:07] LABS: Alpha-1-Globulins 0.3 g/dL (0.0-0.4); Alpha-2-Globulins 0.6 g/dL (0.4-1.0); Free Kappa Light Chains 22.4 mg/L (3.3-19.4); Free Lambda Light Chains 15.9 mg/L (5.7-26.3); Gamma Globulin 0.6 g/dL (0.4-1.8); Immunoglobulin A 157 mg/dL (61-437); Immunoglobulin M 65 mg/dL (15-143); PROEL- TOTAL PROTEIN 5.1 g/dL (6.0-8.5)
[2019-12-22 17:48] LABS: Haptoglobin 97 mg/dL (34-355); Immunoglobulin G 606 mg/dL (700-1600)
== END 2019-12-20 14:06 | disposition home or self-care (01) | DRG 811 ==
LOC: ED 15:16 → ICU 17:23 → PCU 12-17 15:34
PROVIDERS: Family Medicine; Internal Medicine Critical Care Medicine; Nurse Practitioner Family; Surgery; Admitting Provider Internal Medicine; Emergency Provider Emergency Medicine; Visit Provider Hospitalist
PROC: 0DJD8ZZ Inspection of Lower Intestinal Tract, Via Natural or Artificial Opening Endoscopic (ICD-10-PCS; CPT 45378; principal; 2019-12-17 06:55)
DX: D50.0 Iron deficiency anemia secondary to blood loss (chronic) (principal); J15.6 Pneumonia due to other Gram-negative bacteria; J96.11 Chronic respiratory failure with hypoxia; D69.3 Immune thrombocytopenic purpura; C77.9 Secondary and unspecified malignant neoplasm of lymph node, unspecified; B37.81 Candidal esophagitis; I50.22 Chronic systolic (congestive) heart failure; D61.818 Other pancytopenia; K55.20 Angiodysplasia of colon without hemorrhage; C61 Malignant neoplasm of prostate; I95.9 Hypotension, unspecified; E78.5 Hyperlipidemia, unspecified; I25.10 Atherosclerotic heart disease of native coronary artery without angina pectoris; I25.5 Ischemic cardiomyopathy; Z95.810 Presence of automatic (implantable) cardiac defibrillator; I11.0 Hypertensive heart disease with heart failure; Z85.118 Personal history of other malignant neoplasm of bronchus and lung; Z92.3 Personal history of irradiation; Z87.891 Personal history of nicotine dependence; Z95.1 Presence of aortocoronary bypass graft; I25.2 Old myocardial infarction; N40.0 Benign prostatic hyperplasia without lower urinary tract symptoms; J43.9 Emphysema, unspecified
CPT/HCPCS: 36415; 71046; 71260; 74160; 80048; 80053; 80061; 81001; 82274; 82607; 82728; 82746; 82784; 83010; 83540; 83605; 83615; 83735; 83880; 83883; 84153; 84165; 84443; 84484; 85014; 85018; 85025; 85027; 86334; 86850; 86900; 86901; 86920; 86922; 87040; 87070; 87077; 87086; 87088; 87186; 87205; 87449; 87633; 87641; 88305; 88312; 88342; 93005; 93306; 94640; 94667; 94668; 97110; 97116; 97162; 97166; 97530; 97535; 97802; 99251; 99285; J7040; P9016; P9040; Q9957; Q9967; A4216; C8929; G0463; J0696; J2405

== ENCOUNTER → 2019-12-31 13:05 | Outpatient (CLI) | payer MEDICARE, OTHER, SELFPAY ==
[2018-03-31 15:32] VITALS: BMI 23.4
[2019-12-15 17:49] VITALS: BMI 24.2
[2019-12-29 13:15] VITALS: BMI 23.4
--- NOTE | 2019-12-31 13:07 | STEWCON_ITS ---
Reason For Study: CAD Stress Results Protocol: Dobutamine Stress Echo With Definity Maximum Predicted HR: 140 bpm Target HR: 119 bpm % Maximum Predicted HR: 87 % DurationHeart Rate Stage (mm:ss) (bpm) BP Comment Baseline 79 149/79No Chest Pain; 10 ML Diluted Definity DSE 10 MCG 3:40 79 130/72No Chest Pain DSE 20 MCG 3:00 95 142/71No Chest Pain DSE 30 MCG 3:00 116 151/79No Chest Pain DSE 40 MCG 2:12 122 163/73No Chest Pain Recovery 96 141/84No Chest Pain Stress Duration: 11:52 mm:ss Maximum Stress HR: 122 bpm METS: 1 Baseline Echocardiogram Findings The estimated ejection fraction is 15 %. Moderately dilated left ventricle. Stress Echo Wall motion Data Resting WM Intermediate WM Stress WM Resting Wall Motion Wall Motion Stress Posterior-Basal: Akinetic. All sharma contracted normally Infero-Basal: Akinetic. except for inferior basal wall Mid-Anterior : Severely which remained akinetic. Hypokinetic. Mid-Lateral : Mildly hypokinetic. EKG Data The baseline ECG displays normal sinus rhythm. The patient was titrated from 10 mcg to a maximum of 40 mcg of dobutamine during the stress. The maximum heart rate attained was 133 beats per minute. This was 95% of maximum predicted heart rate. During dobutamine infusion, there were no ST or T wave changes noted to suggest ischemia. No clinical angina was noted. Interpretation Summary The estimated ejection fraction is 15 %. Normal, adequate, dobutamine echocardiogram. Negative for ischemia by EKG and echocardiographic criteria. No anginal symptoms noted. Rare PVCs during infusion noted. Patient at baseline inferior basal akinesis, which remained akinetic during peak infusion. Patient also had severe anterior lateral hypokinesis at rest, which contracted normally during infusion. Final LVEF of 35%. Test terminated due to the attainment of target heart rate. Decreased sensitivity due to poor echo windows requiring Definity agent and baseline left bundle branch block. Patient tolerated procedure well. No complications. The study was technically difficult. Contrast injection was performed. Ordering Physician: Jalen Pacheco Referring Physician: Refugio Hernandez Performed By: Maryjane Wolfe, RUPERTO, RVT
== END ==
PROVIDERS: Referring Provider Internal Medicine Cardiovascular Disease; Visit Provider Internal Medicine Cardiovascular Disease
DX: I25.10 Atherosclerotic heart disease of native coronary artery without angina pectoris (principal); I50.9 Heart failure, unspecified; I25.2 Old myocardial infarction; Z95.1 Presence of aortocoronary bypass graft
CPT/HCPCS: 93017; 93350; J7040; Q9957; A4216; C8928

== ENCOUNTER → 2020-04-19 12:52 | Outpatient (CLI) | payer MEDICARE, OTHER, SELFPAY ==
[2018-03-31 15:32] VITALS: BMI 23.4
[2019-07-19 14:32] VITALS: BMI 25.6
[2019-09-13 11:54] VITALS: BMI 25.6
[2019-11-16 14:00] LABS: CREATININE FINGERSTICK 0.9 mg/dL (0.70-1.30)
[2020-01-31 12:26] VITALS: BMI 23.4
--- NOTE | 2020-04-19 12:54 | CT_ITS ---
STUDY: CT CHEST WITH CONTRAST REASON FOR EXAM: Male, 80 years old. Monitor lung cancer. Hx of prostate, skin and lung cancer. COPD. Prior CABG/pacemaker with revision RADIATION DOSAGE (If Supplied By Facility): CTDIvol = ( 14.11 ) mGy, DLP = ( 996.26 ) mGycm TECHNIQUE: Transaxial imaging was performed following intravenous administration of IV 100mL Isovue-300. Multiplanar coronal and sagittal images were reformatted. Individualized dose optimization techniques were used for this CT. COMPARISON: Comparison is made with prior study dated February 17, 2020. FINDINGS: A left sided which of her pacemaker is seen. Emphysematous changes and hyperinflation. Stable linear density in the right upper lobe suggestive of scarring. The previously seen left pleural effusion has resolved. Stable mild increased markings at the left lung base suggestive of a scarring. The previously seen nodular density in the posteromedial segment of the left lower lobe has almost resolved. There is no demonstrated pleural abnormality. Sternal cerclage wires and vascular clips are present from a prior sternotomy and coronary artery bypass graft procedure (CABG). There are calcifications of the coronary arteries. There is a 1 cm slightly spiculated nodule in the anterior aspect of the lingular segment of the left upper lobe. This was not visualized with certainty on prior examination. Normal mediastinum. Stable fullness of the right hilum. Normal enhanced pulmonary arteries. Normal aorta arch and descending thoracic aorta. There are multi-level degenerative changes of the thoracic spine. There is no demonstrated abnormality of the visualized upper abdomen. CT/Chest WITH Contrast IMPRESSION: Hyperinflation and emphysematous changes with scarring as described. The previously seen nodular densities in the posterior medial segment of the left lower lobe has almost completely resolved. There is a new 1 cm sections precluding a nodule in the lingular segment of the left upper lobe anteriorly. Follow-up is recommended. Electronically Signed: Dangelo Blevins, at 14:31 EDT , Service support ,
--- NOTE | 2020-04-19 12:54 | CT_ITS ---
STUDY: CT ABDOMEN WITH CONTRAST REASON FOR EXAM: Male, 80 years old. Monitor lung cancer. Hx of prostate, skin and lung cancer. COPD. Prior CABG/pacemaker with revision RADIATION DOSAGE (If Supplied By Facility): CTDIvol = ( 14.11 ) mGy, DLP = ( 996.26 ) mGycm TECHNIQUE: Transaxial images were obtained post I.V. administration of IV 100mL Isovue-300, and oral contrast. Sagittal and coronal images were reconstructed. Individualized dose optimization techniques were used for this CT. COMPARISON: Comparison is made with prior study of December 18, 2019. FINDINGS: The visualized lung bases are unremarkable. And dual-chamber pacemaker is seen. Normal liver. There are multiple small gallstones. Normal spleen. Normal pancreas. Normal bilateral adrenal glands. Stable nonobstructing 4 mm calculus in the upper pole of the right kidney. Stable 1 cm cyst in the mid lower aspect of the left kidney. Normal visualized stomach. Normal small intestine. Normal colon. The appendix is visualized and appears normal. There is diffuse atherosclerotic calcification of the abdominal aorta, without a demonstrated aneurysm. Normal inferior vena cava. Normal retroperitoneum. Normal abdominal wall. There are diffuse degenerative changes of the visualized lumbar spine. CT/Abdomen WITH IV Contrast IMPRESSION: Stable examination. Multiple small gallstones. Electronically Signed: Dangelo Blevins, at 14:33 EDT , Service support ,
[2020-04-19 13:06] LABS: CREATININE FINGERSTICK 0.9 mg/dL (0.70-1.30); EGFR FINGERSTICK > 60.0000 mL/min (>60)
--- NOTE | 2020-04-19 13:24 | NURSING ---
IV attached to power injector for CT exam.
[2020-04-19 13:38] LABS: Absolute Lymphocyte Count 0.45 X10^3/uL (0.83-4.51); Absolute Neutrophil Count 3.6 X10^3/uL (2.0-7.7); Basophil# 0.01 X10^3/uL; Basophil% 0.2 % (0-1); Eosinophil# 0.04 X10^3/uL; Eosinophils% 0.9 % (0-5); Hematocrit 39.3 % (40-54); Lymphocyte # 0.45 X10^3/ul (4.0); Lymphocyte % 10.3 % (19-41); Mean Corp Hgb Conc 30.5 g/dL (32-36); Mean Corpuscular Hgb 28.4 pg (27.0-32.0); Mean Corpuscular Volume 93.1 fL (80-94); Mean Platelet Vol. 12.1 fl (6.2-12.0); Monocyte# 0.25 X10^3/uL; Monocyte% 5.7 % (0-10); NRBC Flagged by Analyzer 0 % (0-5); Neutrophil # 3.57 X10^3/uL (2.7-7.7); POSITIVE COUNT YES; POSITIVE DIFFERENTIAL YES; Platelet Count 85 K/mm3 (150-450); RBC Distribution Width CV 15.3 % (11.6-14.6); RBC Distribution Width SD 52.2 fl (35.1-43.9); Red Blood Count 4.22 M/mm3 (4.6-6.2); White Blood Count 4.4 K/mm3 (4.4-11.0)
[2020-04-19 13:39] LABS: Differential Indicated SCAN CRITERIA MET
[2020-04-19 14:06] LABS: ALB/GLOB Ratio 0.8 RATIO (0.9-2.4); AST(SGOT) 17 U/L (15-37); Alanine Aminotransfer ALT/SGPT 22 U/L (16-61); Albumin, Serum 3.1 g/dL (3.2-5.0); Alkaline Phosphatase 63 U/L (45-117); Anion Gap 5 (5-15); BUN 17 mg/dL (7-18); BUN/Creat Ratio 17.1 RATIO (10-20); Calcium,Total 8.8 mg/dL (8.5-10.1); Chloride 103 mmol/L (98-107); EST Glomerular Filtration Rate 77 mL/min (>60); Est Glom Filt Rate - Afr Amer 93 mL/min (>60); Ferritin 75 ng/mL (26-388); Globulin 3.7 g/dL (2.2-4.2); Glucose 126 mg/dL (74-106); Iron 38 ug/dL (65-175); Iron Binding Capacity,Total 297 ug/dL (250-450); PERCENT IRON SATURATION 12.8 % (15.0-55.0); Protein, Total 6.8 g/dL (6.4-8.2); Sodium Level 140 mmol/L (136-145)
[2020-04-19 21:27] LABS: Xtra Tube EP Lab EXTRA TUBE
[2020-04-20 14:19] LABS: Pathologist Review Reviewed
== END ==
PROVIDERS: Referring Provider Internal Medicine Hematology & Oncology; Visit Provider Internal Medicine Hematology & Oncology
DX: C34.11 Malignant neoplasm of upper lobe, right bronchus or lung (principal); C61 Malignant neoplasm of prostate; D69.3 Immune thrombocytopenic purpura; D50.0 Iron deficiency anemia secondary to blood loss (chronic); D61.818 Other pancytopenia
CPT/HCPCS: 71260; 74160; 80053; 82728; 83540; 83550; 85025; Q9967; A4216

== ENCOUNTER → 2020-08-21 12:59 | Outpatient (CLI) | payer MEDICARE, OTHER, SELFPAY ==
[2018-03-31 15:32] VITALS: BMI 23.4
[2020-05-18 15:02] VITALS: BMI 24.0
[2020-08-07 13:34] VITALS: BMI 25.4
--- NOTE | 2020-08-21 13:01 | CT_ITS ---
STUDY: CT CHEST WITH CONTRAST REASON FOR EXAM: Male, 80 years old. NEW LUNG NODULE -- HX-LUNG CA W/ CHEMO and amp; RAD TX -- OPEN HEART, PRIOR SMOKER RADIATION DOSAGE (If Supplied By Facility): CTDIvol = ( 16.28 ) mGy, DLP = ( 514.44 ) mGycm TECHNIQUE: Transaxial imaging was performed following intravenous administration of IV 100mL Isovue-300. Multiplanar coronal and sagittal images were reformatted. Individualized dose optimization techniques were used for this CT. COMPARISON: Comparison is made with prior study dated 04/19/2020. FINDINGS: A left-sided portacatheter is seen with the tip in the superior vena cava. Hyperinflation. Diffuse emphysematous changes more prominent in the upper lobes with cystic changes. Stable linear density in the right upper lobe suggestive of scarring. Stable scarring in the left lower lobe with the bud infiltrate appearance suggestive of possible bronchiectasis with mucosal deposits which in the bronchi. Stable scarring in the posterior segment of the left lower lobe. The previously seen small nodular irregular density in the lingular segment of the left upper lobe is not seen at this time. There is no demonstrated pleural abnormality. Sternal cerclage wires and vascular clips are present from a prior sternotomy and coronary artery bypass graft procedure (CABG). There are calcifications of the coronary arteries. Normal mediastinum. Normal hilar regions. Normal enhanced pulmonary arteries. Normal aorta arch and descending thoracic aorta. There are multi-level degenerative changes of the thoracic spine. There is no demonstrated abnormality of the visualized upper abdomen. CT/Chest WITH Contrast IMPRESSION: Stable scarring superimposed on COPD and emphysematous changes. The previously seen irregular nodule in the lingular segment of the left upper lobe is not seen at this time. Electronically Signed: Dangelo Blevins, at 14:18 EST , Service support ,
[2020-08-21 13:26] LABS: CREATININE FINGERSTICK 0.8 mg/dL (0.70-1.30)
[2020-08-21 13:51] LABS: Absolute Neutrophil Count 4.2 X10^3/uL (2.0-7.7); Basophil# 0.01 X10^3/uL; Basophil% 0.2 % (0-1); Eosinophil# 0.02 X10^3/uL; Eosinophils% 0.4 % (0-5); Hematocrit 38.9 % (40-54); Hemoglobin 11.8 g/dL (13.0-16.5); Lymphocyte % 9.8 % (19-41); Mean Corp Hgb Conc 30.3 g/dL (32-36); Mean Corpuscular Hgb 28.6 pg (27.0-32.0); Mean Corpuscular Volume 94.2 fL (80-94); Mean Platelet Vol. 11.8 fl (6.2-12.0); Monocyte# 0.27 X10^3/uL; Monocyte% 5.3 % (0-10); NRBC Flagged by Analyzer 0.6 % (0-5); Neutrophil # 4.24 X10^3/uL (2.7-7.7); Neutrophil % 83.3 % (47-70); POSITIVE COUNT YES; POSITIVE DIFFERENTIAL YES; Platelet Count 67 K/mm3 (150-450); RBC Distribution Width CV 16.4 % (11.6-14.6); RBC Distribution Width SD 56.9 fl (35.1-43.9); Red Blood Count 4.13 M/mm3 (4.6-6.2); White Blood Count 5.1 K/mm3 (4.4-11.0)
[2020-08-21 13:53] LABS: Differential Indicated SCAN CRITERIA MET
[2020-08-21 14:02] LABS: Ferritin 20 ng/mL (26-388); Iron 56 ug/dL (65-175); Iron Binding Capacity,Total 323 ug/dL (250-450); PERCENT IRON SATURATION 17.3 % (15.0-55.0)
[2020-08-21 14:23] LABS: Platelet Estimate MOD DEC (ADEQ)
[2020-08-21 14:24] LABS: Anisocytosis 1+; Red Cell Morphology N CHROM NORMAL (NORM C&C)
== END ==
PROVIDERS: Referring Provider Internal Medicine Hematology & Oncology; Visit Provider Internal Medicine Hematology & Oncology
DX: R91.1 Solitary pulmonary nodule (principal); Z85.118 Personal history of other malignant neoplasm of bronchus and lung; J44.9 Chronic obstructive pulmonary disease, unspecified; Z87.891 Personal history of nicotine dependence
CPT/HCPCS: 71260; 82728; 83540; 83550; 85025; Q9967

== ENCOUNTER → 2021-02-26 13:42 | Outpatient (CLI) | payer MEDICARE, OTHER, SELFPAY ==
[2018-03-31 15:32] VITALS: BMI 23.4
[2020-12-04 13:29] VITALS: BMI 25.1
[2021-02-23 07:41] VITALS: BMI 25.1
--- NOTE | 2021-02-26 13:44 | CT_ITS ---
STUDY: CT ABDOMEN WITH CONTRAST REASON FOR EXAM: Male, 80 years old. LUNG CANCER MONITOR RADIATION DOSAGE (If Supplied By Facility): CTDIvol = ( 13.46 ) mGy, DLP = ( 1207.51 ) mGycm TECHNIQUE: Transaxial images were obtained post I.V. administration of IV 100mL Isovue-370, and oral contrast. Sagittal and coronal images were reconstructed. Individualized dose optimization techniques were used for this CT. COMPARISON: Comparison is made with prior study dated 04/19/2020. FINDINGS: Mild degree of increased markings at the left lung base suggestive of bronchiectasis. There is evidence of a 1 cm noncalcified nodule in the posterior medial segment of the left lower lobe. This is unchanged. The visualized portions of the heart are within normal limits. Normal liver. There are multiple small gallstones. Normal spleen. Normal pancreas. Normal bilateral adrenal glands. Normal right kidney. Stable 1 cm cyst in the mid lower aspect of the left kidney. There is a small hiatal hernia. Normal small intestine. Normal colon. The appendix is visualized and appears normal. There is diffuse atherosclerotic calcification of the abdominal aorta, without a demonstrated aneurysm. Small amount of mural thrombus is seen in the infrarenal abdominal aorta. Normal inferior vena cava. Normal retroperitoneum. Normal abdominal wall. There are diffuse degenerative changes of the visualized lumbar spine. CT/Abdomen WITH IV Contrast IMPRESSION: Stable examination. Electronically Signed: Dangelo Blevins MD at 15:26 EDT , Service support ,
--- NOTE | 2021-02-26 13:44 | CT_ITS ---
STUDY: CT CHEST WITH CONTRAST REASON FOR EXAM: Male, 80 years old. LUNG CANCER MONITOR RADIATION DOSAGE (If Supplied By Facility): CTDIvol = ( 13.46 ) mGy, DLP = ( 1207.51 ) mGycm TECHNIQUE: Transaxial imaging was performed following intravenous administration of IV 100mL Isovue-370. Multiplanar coronal and sagittal images were reformatted. Individualized dose optimization techniques were used for this CT. COMPARISON: Comparison is made with prior study dated 08/21/2020. FINDINGS: A left-sided dual-chamber pacemaker is seen. Hyperinflation. Stable diffuse emphysematous changes with centrilobular emphysematous changes in the upper lobes. Stable scarring in the left lower lobe with the bronchiectasis and mucosal deposits within the bronchi. Stable scarring in the posterior segment of the left lower lobe as well as in the right midlung. There is no demonstrated pleural abnormality. Sternal cerclage wires and vascular clips are present from a prior sternotomy and coronary artery bypass graft procedure (CABG). There are calcifications of the coronary arteries. Calcified precarinal and right hilar lymph nodes. Normal enhanced pulmonary arteries. Normal aorta arch and descending thoracic aorta. There are multi-level degenerative changes of the thoracic spine. There is no demonstrated abnormality of the visualized upper abdomen. CT/Chest WITH Contrast IMPRESSION: Stable examination. Electronically Signed: Dangelo Blevins MD at 15:32 EDT , Service support ,
[2021-02-26 14:06] LABS: CREATININE FINGERSTICK 1.2 mg/dL (0.70-1.30); EGFR FINGERSTICK > 60.0000 mL/min (>60)
[2021-02-26 14:26] LABS: Absolute Lymphocyte Count 0.56 X10^3/uL (0.83-4.51); Basophil# 0.01 X10^3/uL; Basophil% 0.2 % (0-1); Eosinophil# 0.02 X10^3/uL; Eosinophils% 0.3 % (0-5); Hematocrit 44.6 % (40-54); Hemoglobin 14.3 g/dL (13.0-16.5); Lymphocyte # 0.56 X10^3/ul (0.83-4.51); Lymphocyte % 9.2 % (19-41); Mean Corp Hgb Conc 32.1 g/dL (32-36); Mean Corpuscular Volume 96.7 fL (80-94); Mean Platelet Vol. 11.6 fl (6.2-12.0); Monocyte# 0.49 X10^3/uL; NRBC Flagged by Analyzer 0 % (0-5); Neutrophil # 4.98 X10^3/uL (2.7-7.7); Neutrophil % 81.5 % (47-70); POSITIVE COUNT YES; POSITIVE DIFFERENTIAL YES; Platelet Count 77 K/mm3 (150-450); RBC Distribution Width CV 14.8 % (11.6-14.6); RBC Distribution Width SD 52.2 fl (35.1-43.9); Red Blood Count 4.61 M/mm3 (4.6-6.2); White Blood Count 6.1 K/mm3 (4.4-11.0)
[2021-02-26 14:28] LABS: Differential Indicated SCAN CRITERIA MET
[2021-02-26 14:41] LABS: Ferritin 158 ng/mL (26-388); Iron 103 ug/dL (65-175); Iron Binding Capacity,Total 323 ug/dL (250-450); PERCENT IRON SATURATION 31.9 % (15.0-55.0)
== END ==
PROVIDERS: Referring Provider Internal Medicine Hematology & Oncology; Visit Provider Internal Medicine Hematology & Oncology
DX: C34.11 Malignant neoplasm of upper lobe, right bronchus or lung (principal); C61 Malignant neoplasm of prostate; C77.9 Secondary and unspecified malignant neoplasm of lymph node, unspecified; D69.3 Immune thrombocytopenic purpura; D50.0 Iron deficiency anemia secondary to blood loss (chronic)
CPT/HCPCS: 71260; 74160; 82728; 83540; 83550; 85025; Q9967; A4216